=== PATIENT | male | born 1950 | race Caucasian/White ===

== ENCOUNTER → 2016-04-12 | Outpatient (CLI) | payer OTHER ==
[2013-10-29 10:15] VITALS: BP 144/89
[~2016-04-12] MED LIST: AMLO5TAB4 PO; ASPI325T4 PO; CYAN1TAB28 PO; FERR325T58 PO; GABA600T2 PO; IRON18TA PO; LOSA100T6 PO; METF10002 PO; METO-269 PO; MULT1TAB13 PO; OMEG-57 PO; REGADENOSON 0.4 MG/5 ML DISP.SYRIN. IV ONE; SIMV80TA3 PO
--- NOTE | 2016-04-12 08:30 | RAD ---
EXAM: Chest 2 views. HISTORY: Shortness of breath, dizziness, hypertension. COMPARISON: 04/23/2013. FINDINGS: Frontal and lateral views of the chest are obtained. There are changes of coronary artery bypass grafting. Mild linear opacities in the left base are stable and indicate scarring. There are no confluent infiltrates. There is a calcified granuloma in the right base. There is no pneumothorax or pleural effusion. The heart is not enlarged. IMPRESSION: 1. No confluent infiltrates.
--- NOTE | 2016-04-12 11:38 | CARD ---
APPROVED REPORT EXAM: Two-dimensional and M-mode echocardiogram with Doppler and color Doppler. Other Information Quality : Average Rhythm : NSR INDICATION Chest Pain Murmur 2D DIMENSIONS RVDd3.0 (2.9-3.5cm)Left Atrium(2D)4.2 (1.6-4.0cm) IVSd1.1 (0.7-1.1cm)Aortic Root(2D)3.4 (2.0-3.7cm) LVDd5.0 (3.9-5.9cm)LVOT Diameter2.1 (1.8-2.4cm) PWd1.1 (0.7-1.1cm)LVDs3.6 (2.5-4.0cm) FS (%) 29.3 %SV67.6 ml LVEF(%)56.0 (>50%) Aortic Valve AoV Peak Beni.145.0cm/sAoV VTI29.8cm AO Peak GR.8.4mmHgLVOT Peak Beni.88.6cm/s LVOT VTI 19.35cmAO Mean GR.5mmHg NUZHAT (VMAX)2.41xd3BIO (VTI)2.16cm2 Mitral Valve MV E Qgodayww247.8cm/sMV DECEL OLAA265dq MV A Fowrampl45.5cm/sMV E Mean Gr.2mmHg MV FCR58jxF/A Ratio1.2 MV A Phtgardr438okHPL (PHT)4.47cm2 TDI E/Lateral E'11.0E/Medial E'12.8 Pulmonary Valve PV Peak Giyzukka918.3cm/sPV Peak Grad.4mmHg RVOT VTI20.1cm Tricuspid Valve TR P. Thwvawnd904qz/sRAP DWFQGRLU3hiCb TR Peak Gr.24waCbUWGQ02kaEi Pulmonary Vein S1 Qnayeoau61.9cm/sD2 Ecabuszu43.0cm/s LEFT VENTRICLE The left ventricle is normal size. There is normal left ventricular wall thickness. Left ventricle sy stolic function is normal. The Ejection Fraction is 55-60%. There is normal LV segmental wall motion. The left ventricular diastolic function and filling is normal for age. RIGHT VENTRICLE The right ventricle is normal size. The right ventricular systolic function is normal. ATRIA The left atrium is borderline dilated. The right atrium size is normal. The interatrial septum is int act with no evidence for an atrial septal defect or patent foramen ovale as noted on 2-D or Doppler i maging. AORTIC VALVE The aortic valve is mildly sclerotic. The aortic valve is trileaflet. Doppler and Color Flow revealed no significant aortic regurgitation. There is no significant aortic valvular stenosis. MITRAL VALVE The mitral valve is normal in structure and function. There is no mitral valve stenosis. Doppler and Color Flow revealed trace mitral regurgitation. TRICUSPID VALVE The tricuspid valve is normal in structure and function. Doppler and Color Flow revealed mild tricusp id regurgitation. The PA pressure was estimated at 26 mmHg. There is no tricuspid valve stenosis. PULMONIC VALVE The pulmonary valve is normal in structure and function. Doppler and Color Flow revealed no pulmonic valvular regurgitation. There is no pulmonic valvular stenosis. GREAT VESSELS The aortic root is normal in size. Normal pulmonary venous flow (Doppler). The IVC is normal in size and collapses >50% with inspiration. PERICARDIAL EFFUSION There is no evidence of significant pericardial effusion. Critical Notification Critical Value: No <Conclusion> The left ventricle is normal size. Left ventricle systolic function is normal. The Ejection Fraction is 55-60%. There is no significant aortic valvular stenosis. Doppler and Color Flow revealed no significant aortic regurgitation. Doppler and Color Flow revealed trace mitral regurgitation. Doppler and Color Flow revealed mild tricuspid regurgitation. The PA pressure was estimated at 26 mmHg.
--- NOTE | 2016-04-12 14:53 | RAD ---
APPROVED REPORT Test Type: Pharmacological Stress Nurse/Tech: Hilda Yo R.N. Test Indications: CAD, dizzy spells Cardiac History: Family history, Hypertension, Diabetes, CAD, 7 vessel bypass in 2008 Medications: See Electronic Medical Record Medical History: See Electronic Medical Record Resting ECG: RBBB Resting Heart Rate: 71 bpm Resting Blood Pressure: 153/78mmHg Pretest Chest Pain: No chest pain Nurse/Tech Notes S1S2, lungs sound clear Consent: The procedure was explained to the patient in lay terms. Informed consent was witnessed. Marcos eout was entered into [employer]. History and Stress Test performed by Hilda Yo R.N. Pharm. Details Pharmacologic stress testing was performed using 0.4mg per 5ml of regadenoson given intravenously ove r 7-10 seconds. Stress Symptoms Dyspnea POST EXERCISE Reason for Termination: Infusion complete Max HR: 145 bpm Max Blood Pressure: 153/76mmHg Blood Pressure response to exercise: Normal blood pressure response during stress. Chest Pain: No. Arrhythmia: Yes. had some PVC's in 5th minute of recovery ST Change: No. INTERPRETATION Stress EKG Conclusion: The resting EKG shows a sinus rhythm, right bundle branch block and right vent ricular hypertrophy. The stress EKG shows no significant changes from baseline. No EKG evidence of stress-induced ischemia. Imaging Protocol IMAGE PROTOCOL: Rest Tc-99m/stress Tc-99m 1 day Rest: Stress: Viability: Radiopharm.Tc99m QwoboitkxUc49a Sestamibi Dose9.5mCi 34mCi Duration 20min. 15min. Img Date 04/12/2016 04/12/2016 Inj-Img Syja12xxd. 60min. Rest Admin Site:IV - Right AntecubitalAdministrator:Alf Sims RT (R)(N) Stress Admin Site: IV - Right AntecubitalAdministrator: La Pritchett RT (R)(N) STRESS DATA End Diast. Vol.137.0mlAv. Heart Rate81.0bpm LVEDV index BSA2.0mlCardiac Output0.1L/min End Syst. Vol.53.0mlCO Index BSA6.8L/min LVESV index BSA1.0mlMyocardial Qdtm642.0g Eject. Illzavqe21.0% Stress Rates Pk. Fill Rate3.39EDV/secLVtime Pk. Fill 208.30msec Pk. Empty Rate3.55ESV/secLVtime Pk. Wkanq106.28msec 1/3 Pk. Fill0.98EDV/sec Stress Scores Regional WT0.00Summed WT10.00 Regional WM0.00Summed WM4.00 LV Perfusion The stress scans show a small inferior defect. The rest scans show a small inferior defect. Nuclear imaging shows no reversible ischemia Nuclear imaging suggested previous inferior infarct. Wall Motion Normal left ventricular systolic function with an ejection fraction of 61%. LV Perf. Quant 17 Seg. SSS11.00 17 Seg. SRS0.00 17 Seg. SDS11.00 Stress Defect Extent (% LAD)8.80Rest Defect Extent (% LAD)0.00Rev. Defect Extent (% LAD)8.80 Stress Defect Extent (% LCX) 53.80Rest Defect Extent (% LCX)0.00Rev. Defect Extent (% LCX)33.80 Stress Defect Extent (% RCA)18.90Rest Defect Extent (% RCA)0.00Rev. Defect Extent (% RCA)10.00 Stress Defect Extent (% DIANNE)21.10Rest Defect Extent (% DIANNE)0.00Rev. Defect Extent (% DIANNE)14.30 Conclusion 1. Abnormal baseline EKG but no EKG evidence of stress-induced ischemia. 2. Nuclear imaging shows no reversible ischemia. 3. Nuclear imaging shows an inferior infarct. 4. Left ventricular systolic function is intact with an ejection fraction of 61%. 5. Moderately low risk Lexiscan nuclear stress test with no reversible ischemia and an ejection fract ion of 61%.
== END | disposition home or self-care (01) ==
LOC: NM 07:58
PROVIDERS: ATTEND Internal Medicine Cardiovascular Disease
DX: R07.9 Chest pain, unspecified (principal); R01.1 Cardiac murmur, unspecified; R06.02 Shortness of breath; Z82.49 Family history of ischemic heart disease and other diseases of the circulatory system; I10 Essential (primary) hypertension; E11.9 Type 2 diabetes mellitus without complications
CPT/HCPCS: 71020; 78452; 93017; 93306; 96374; 96375; 96376; A9500; J2785

== ENCOUNTER → 2016-11-08 | Outpatient (CLI) | payer OTHER ==
[2013-10-29 10:15] VITALS: BP 144/89
[~2016-11-08] MED LIST changes: -ASPI325T4 PO; +ASPI325T8 PO; +METF-620 PO; -METF10002 PO; -REGADENOSON 0.4 MG/5 ML DISP.SYRIN. IV ONE
--- NOTE | 2016-11-15 17:43 | EEG ---
DATE OF SERVICE: 11/08/2016 ELECTROENCEPHALOGRAM NUMBER: [id number]. OBJECTIVE: This is a 66-year-old male patient with history of abnormal movements. EEG was requested to help rule out seizure. METHODS: Twenty electrodes were applied according to the international 10-20 electrode placement system. EKG monitoring, hyperventilation, intermittent photic stimulation, monopolar and bipolar montages are routinely utilized. The record was obtained on a digital system with video monitoring. FINDINGS: 1. The patient was recorded in the awake and drowsy states. No sleep state was recorded. The overall background amplitude is 10-25 microvolts. A posterior dominant rhythm of 8-10 Hz is observed. 2. Abnormalities: No specific epileptiform discharge or electrographic seizure is seen. No focal or diffuse slowing. 3. Activation: Hyperventilation was performed with good efforts and normal response. Intermittent photic stimulation was performed with photic driving. No specific epileptiform discharge or electrographic seizure induced by hyperventilation or intermittent photic stimulation. IMPRESSION: This electroencephalogram is a normal study for the awake and drowsy states. No sleep state was recorded. No focal, lateralizing, specific epileptiform discharge, or electrographic seizure is seen. However, a normal electroencephalogram does not rule out seizure. ROSE MARIE LIGHT MD DR: FAREED/kishor JOB#: [id number] / [id number] YENI
== END | disposition home or self-care (01) ==
LOC: RT 09:33
PROVIDERS: ATTEND Psychiatry & Neurology Neurology
DX: R06.4 Hyperventilation (principal)
CPT/HCPCS: 95816

== ENCOUNTER → 2017-11-03 | Outpatient (CLI) | payer OTHER ==
[2013-10-29 10:15] VITALS: BP 144/89
[~2017-11-03] MED LIST changes: +ALBUTEROL SULFATE 2.5 MG/3 ML NEBU. NEB ONE; -LOSA100T6 PO; +LOSA100T7 PO; -METF-620 PO; +METF10007 PO; -SIMV80TA3 PO; +SIMV80TA7 PO
--- NOTE | 2017-11-08 12:51 | RESP ---
DATE OF SERVICE: 11/03/2017 REFERRING PHYSICIAN: Dr. Elvin Waldrop. Beverley Sarahterese DO The patient's FVC was 3.28, which is 91% predicted, FEV1 of 2.61, which is 98% predicted. The FEV1/FVC ratio was normal. FEF 25-75, was 121% predicted. There was no response to bronchodilators. Lung volumes showed a total lung capacity of 106% predicted, residual volume increased at 129% predicted. Diffusion capacity is normal at 80% predicted. IMPRESSION: 1. No evidence of any obstructive airway disease. 2. No response to bronchodilators. 3. Lung volumes consistent with air trapping. 4. Normal diffusion capacity. CLARE CLARKE MD DR: JOSEPH/nts JOB#: [id number] / [id number]
== END | disposition home or self-care (01) ==
LOC: PF 08:18
PROVIDERS: ATTEND Internal Medicine
DX: J61 Pneumoconiosis due to asbestos and other mineral fibers (principal)
CPT/HCPCS: 94060; 94640; 94729; J7613

== ENCOUNTER → 2017-11-21 | Outpatient (CLI) | payer OTHER ==
[2013-10-29 10:15] VITALS: BP 144/89
[~2017-11-21] MED LIST changes: -ALBUTEROL SULFATE 2.5 MG/3 ML NEBU. NEB ONE
--- NOTE | 2017-11-21 12:39 | KCIC ---
EXAM: Lumbar spine, 5 views; cervical spine, 5 views. HISTORY: Pain. COMPARISON: None. FINDINGS: Lumbar spine: 5 views of the lumbar spine are obtained. There is no significant listhesis. The vertebral bodies are normal in height and the disc spaces are preserved. There is endplate remodeling and facet arthropathy at all levels. There are multiple endplate Schmorl's nodes. Cervical spine: 5 views of cervical spine are obtained. There is minimal anterolisthesis of C4 on C5. There is degenerative endplate remodeling with disc space narrowing and osteophytosis primarily at C5-C6, and to lesser extent, C6-C7. There is facet arthropathy at all levels. IMPRESSION: 1. Multilevel degenerative change throughout the lumbar spine. 2. Multilevel degenerative change within the cervical spine, primarily at C5-C6. 3. No acute osseous finding. Electronically signed by: La Shell MD (11/21/2017 12:36 PM) [facility]
== END | disposition home or self-care (01) ==
LOC: KCIC 09:47
PROVIDERS: ATTEND Nurse Practitioner
DX: M47.892 Other spondylosis, cervical region (principal); M47.896 Other spondylosis, lumbar region
CPT/HCPCS: 72050; 72110

== ENCOUNTER → 2017-12-04 | Outpatient (CLI) | payer OTHER ==
[2013-10-29 10:15] VITALS: BP 144/89
--- NOTE | 2017-12-04 15:40 | KCIC ---
MRI Cervical Spine Without Contrast History: Cervical radiculopathy, neck pain for 6 months Technique: Multiplanar, multi sequential noncontrast MR imaging was performed of the cervical spine. Comparison: None Findings: There is some motion degradation. Cervical cord caliber is within normal limits without convincing focal signal abnormality allowing for artifact. There is no significant abnormality of the cervical medullary junction. Cervical vertebral body stature is maintained. There is minimal grade 1 anterior spondylolisthesis at C3-4 and C4-5. There is moderate to severe degenerative disc disease at C5-C6 and to lesser degree at C6-7, mild disc desiccation C4-5 and C3-4. There is mild levoscoliosis centered upon the cervicothoracic junction. There is some nonspecific fluid extending about the right lateral mass C1-C2 articulation inferiorly. C2-C3: Neural foramina and spinal canal are adequate. C3-C4: There is severe right facet hypertrophic change, to lesser degree on the left. Spinal canal and neural foramina are adequate. C4-C5: There is severe facet degenerative change greater on the left. Spinal canal and right neural foramen are adequate. There is likely mild narrowing of the left neural foramen from posteriorly by facet. C5-C6: There is disc osteophyte complex and bulge, mild indentation upon the ventral thecal sac greater in the right lateral recess. Central canal is adequate about 11 to 12 mm, minimal narrowing of the right lateral recess. There is bilateral facet degenerative change, also uncovertebral degenerative change change greater on the left. There is fairly severe narrowing of the left neural foramen, mild narrowing on the right. C6-C7: There is very minimal disc osteophyte complex and protrusion. Central canal is adequate about 11-12 mm. Right neural foramen is adequate. There is facet degenerative change, also mild left uncovertebral degenerative change. There is brum-jm-fugkcszp narrowing of the left neural foramen. C7-T1: Spinal canal and neural foramina are adequate. Impression: 1. There is no significant cervical spinal stenosis. There is fairly severe narrowing of the left C5-C6 neural foramen, lesser degree of narrowing on the left at C6-7, and minimally at C4-5. Facet and uncovertebral degenerative change contributes to neural foramina compromise. There is grade 1 anterior spondylolisthesis C3-4 and C4-5. There is degenerative disc disease greatest at C5-C6 and to lesser degree at C6-7, mild spondylosis. There is some nonspecific fluid extending about the right lateral mass C1-C2 articulation inferiorly, may be reactive in etiology. Electronically signed by: Layton Holland MD (12/04/2017 3:38 PM) [facility]
== END | disposition home or self-care (01) ==
LOC: KCIC MRI 13:26
PROVIDERS: ATTEND Family Medicine
DX: M48.02 Spinal stenosis, cervical region (principal); M43.12 Spondylolisthesis, cervical region; M50.122 Cervical disc disorder at C5-C6 level with radiculopathy; M47.892 Other spondylosis, cervical region; M25.78 Osteophyte, vertebrae
CPT/HCPCS: 72141

== ENCOUNTER → 2017-12-13 | Outpatient (CLI) | payer OTHER ==
[2013-10-29 10:15] VITALS: BP 144/89
--- NOTE | 2017-12-13 16:39 | KCIC ---
MRI of the lumbar spine without contrast 12/13/2017 CLINICAL HISTORY: Chronic low back pain which radiates down the left leg. TECHNIQUE: Unenhanced T1-weighted and T2-weighted sagittal and axial and inversion recovery sagittal images of the lumbar spine were obtained. FINDINGS: Minimal S-shaped curvature of the thoracolumbar spine is seen. Degenerative signal changes are seen involving all of the disks of the lumbar spine. Degenerative signal changes are seen within the marrow surrounding these discs. The conus medullaris is within normal limits in morphology, position, and signal characteristics. FINDINGS: Comparison is made to radiographs of the lumbar spine dated 11/21/2017. Degenerative signal changes and loss of height are seen involving all of the disks of the lumbar spine. Degenerative signal changes are seen within the marrow surrounding these discs. The conus medullaris is normal morphology, position, and signal characteristics. At the L1-2 disc space there is a mild generalized disc bulge. Degenerative changes are seen involving the facet joints bilaterally. There is mild ligamentum flavum hypertrophy bilaterally. These findings do not result in significant central spinal canal or neural foraminal stenosis. At the L2-3 disc space there is a mild to moderate generalized disc bulge. This is eccentric to the right. Superimposed on the disc bulge is a left lateral focal disc protrusion. This measures 4 mm in AP diameter. Degenerative changes are seen involving the facet joints bilaterally. There is mild to moderate ligamentum flavum hypertrophy bilaterally. These findings when combined result in mild central spinal canal stenosis. Mild bilateral neural foraminal stenosis is seen. At the L3-4 disc space there is a mild to moderate generalized disc bulge. Superimposed on this disc bulge is a right paracentral focal disc protrusion. This measures 3 mm in AP diameter. Degenerative changes are seen involving the facet joints bilaterally. There is mild ligamentum flavum hypertrophy bilaterally. These findings when combined result in mild right greater than left central spinal canal stenosis. No neural foraminal stenosis is seen. At the L4-5 disc space there is a mild to moderate generalized disc bulge. Degenerative changes are seen involving the facet joints bilaterally. There is moderate ligamentum flavum hypertrophy bilaterally. These findings when combined result in mild central spinal canal stenosis. No neural foraminal stenosis is seen. At the L5-S1 disc space there is a mild generalized disc bulge. Degenerative changes are seen involving the facet joints bilaterally. These findings when combined do not result in significant central spinal canal or neural foraminal stenosis. IMPRESSION: The changes of degenerative disc disease are seen throughout the lumbar spine. These findings result in mild central spinal canal stenosis at L2-3 and L4-5 and mild right greater than left central spinal canal stenosis at L3-4. Mild bilateral neural foraminal stenosis is seen at L2-3. Electronically signed by: Fredi Thomas MD (12/13/2017 4:36 PM) [facility]
== END | disposition home or self-care (01) ==
LOC: KCIC MRI 12:26
PROVIDERS: ATTEND Family Medicine
DX: M51.36 Other intervertebral disc degeneration, lumbar region (principal); M48.061 Spinal stenosis, lumbar region without neurogenic claudication; M79.605 Pain in left leg
CPT/HCPCS: 72148

== ENCOUNTER → 2018-01-19 | Outpatient (CLI) | payer OTHER ==
[2013-10-29 10:15] VITALS: BP 144/89
[~2018-01-19] MED LIST changes: +ASPI-630 PO; +CHOL2000 PO; +FLUO40CA2 PO; +LOSA100T14 PO; -LOSA100T7 PO; +PANT20TA2 PO; +PRAM0.255 PO; +ROPI1TAB PO; +SIMV80TA17 PO; -SIMV80TA7 PO; +TRAZ-85 PO; +VITA1CAP PO
--- NOTE | 2018-01-19 19:47 | PAIN ---
DATE OF SERVICE: 01/19/2018 CHIEF COMPLAINT: Low back and left lower extremity pain. SECONDARY COMPLAINT: Neck and bilateral upper extremity pain. HISTORY OF PRESENT ILLNESS: This is a 67-year-old male who presents with history of pain in the low back and left lower extremity from worse about 6 months but going on for about 2 years. The patient reports no specific injury or action he is aware of. The pain just became more noticeable on its own, up again in the base of neck and shoulders as well as in the low back and then left lower extremity, mostly in posterior gluteus, posterior lateral thigh, lateral anterior thigh, anterior medial thigh, medial lower leg as well as the posterior calf. The patient reports it is constant, sharp, stabbing, throbbing, shooting, sometimes cramping and aching, worse during the day, worse with activity, standing, walking, wakes him from sleep at least twice a night, does not affect his bowel or bladder control, but does affect his ability to walk. He reports he has fallen about 7 times in the last 6 months. He is using a cane with him, which he is carrying in his right hand. The patient has had physical therapy, chiropractic treatment exercise, all in September and October of this year, which were helpful initially, but did not have any lasting results more than about a week by his report. The patient had MRI scan of the lumbar and cervical spine with lumbar spine showing degenerative disk disease throughout the lumbar spine, mild central spinal canal stenosis at L2-L3 and L4-L5 and mild right greater than left central spinal canal stenosis at L3-L4, mild bilateral neural foraminal stenosis seen at L2-L3 cervical spine showing severe narrowing, left C5-C6 neural foramen lesser degree of narrowing at the left C6-C7, minimally at C4-C5 with neural foraminal compromise C6-C7 and C4-C5, degenerative disk disease greatest at C5-C6 and a lesser degree at C6-C7 with mild spondylosis. The patient rates his disability rate from 0-10, 10 being the worst, is an 8 with family and home responsibilities, recreation, occupation and life support activities, 2 with social activity and 10 with sexual behavior. PAST MEDICAL HISTORY: Significant for hearing loss, diabetes type 2, shortness of breath, hypertension, sleep apnea, coronary artery disease, hyperlipidemia, basal cell skin cancers, arthritis. PREVIOUS SURGERY: Include coronary artery bypass graft in 2008, carpal tunnel repair bilaterally, trigger finger release bilaterally, ganglion cystectomy as well. CURRENT MEDICATIONS: Include amlodipine, atorvastatin, aspirin, fluoxetine, pramipexole, vitamin D, fish oil, Centrum, iron, vitamin B, ropinirole, pantoprazole, metoprolol, metformin and losartan and gabapentin. The patient also is taking trazodone. ALLERGIES: THE PATIENT IS ALLERGIC TO AMOXICILLIN. FAMILY HISTORY: Significant for heart disease. SOCIAL HISTORY: The patient does not drink alcohol, does not use any tobacco products, not use any illegal, illicit or recreational drugs. He is and lives with his spouse and lives locally in [place], [place]. REVIEW OF SYSTEMS: Positive for those items mentioned in history of present illness. All systems reviewed and otherwise negative. It is complete, full and well documented on the patient's chart. PHYSICAL EXAMINATION: VITAL SIGNS: Today, the patient's blood pressure is 145/76, pulse 66, respirations 16, temperature 98.0 degrees Fahrenheit, height is 5 feet 5 inches, weight is 194 pounds. GENERAL: The patient is awake, alert, oriented, appropriate, very pleasant demeanor. HEENT: Head shows normocephalic and atraumatic. Extraocular movements are intact and symmetrical. Oral cavity shows mucous membranes moist and pink. Dentition is intact. NECK: Shows anterior throat supple without palpable lymphadenopathy noted. Swallow reflex is symmetrical. CHEST: Shows normal with inspection. Breath sounds clear to auscultation bilaterally. HEART: Shows S1, S2 clear. No murmurs auscultated. ABDOMEN: Soft, nontender, nondistended. No palpable organomegaly is noted. No rebound or guarding demonstrated. BACK: Shows spine grossly in the midline, normal-appearing cervical lordotic curvature, thoracic kyphotic curvature and lumbar lordotic curvature. Lumbar paraspinous musculature shows symmetrical on inspection, with palpation shows some moderate tenderness diffusely bilaterally, but only diffusely without significant radiation. Good rotational motion is maintained greater than 10 degrees right and left as well as extension greater than 10 degrees, forward flexion 45 degrees without significant pain reported. The patient shows no tenderness over the spinous processes, sacrum or sacroiliac regions. The patient's neck shows some moderate tenderness in the inferior aspect of the cervical paraspinous musculature as well as the superior medial trapezius bilaterally, essentially equal but good rotational motion both laterally greater than 45 degrees, closer to 90 degrees, right and left lateral rotation as well as full flexion and full extension with exacerbation of pain. EXTREMITIES: Show lower extremity deep tendon reflexes at 1+ in the patellar and tendo calcaneus tendons are equal. Motor exam is approximately 4 on a scale of 5, but symmetrical with dorsiflexion, extension, quadriceps and hamstring flexion. Peripheral pulses are 1+ posterior tibia. No peripheral edema is noted. Upper extremities show deep tendon reflexes 2+ in the biceps and triceps tendons. Motor exam is strong with assisted living administrator strength rated at 5/5 as is bicep and tricep flexion. Peripheral pulses are 2+ in the radial distribution. No peripheral edema is noted of the upper extremities. The patient's extremities are warm and dry to touch, equal in color and appearance, both upper and lower. SKIN: Shows warm and dry, good turgor. No edema. No sores, rashes or bruising. The patient is able to stand, stand on his toes and loses balance very quickly. He is walking with a slight antalgic gait, does appear to favor the left lower extremity. He had limping fashion with walking and again using a cane in his right hand to ambulate. IMPRESSION: 1. This is a 67-year-old male with approximate 6-month history of increasing pain, but over about 2 years pain in the low back, left lower extremity in a radicular fashion in the L4-L5 dermatomal distribution. 2. Bilateral cervical radiculopathy in a C5-C6 and C6-C7 distribution. 3. Hypertension. 4. Type 2 diabetes. 5. Arthritis. 6. Coronary artery disease. PLAN: Options were discussed with the patient including conservative medical managements, continued physical therapies, interventional techniques. As he has done physical therapy and still doing exercises on his own, he would like to pursue interventional techniques. We discussed a lumbar epidural steroid injection using description as well as anatomical models to describe the procedure. The patient will wait for preauthorization with his insurance provider. Once this is obtained, we will have him return and plan on lumbar epidural steroid injection at that time for the radiculopathy in left lower extremity L4-L5 dermatomal distribution. LEYDA OATES MD DR: KAE/kishor JOB#: [id number] / [id number]
== END | disposition home or self-care (01) ==
LOC: PNCL 10:16
PROVIDERS: ATTEND Anesthesiology
DX: M79.662 Pain in left lower leg (principal); M51.36 Other intervertebral disc degeneration, lumbar region; M48.061 Spinal stenosis, lumbar region without neurogenic claudication; M50.323 Other cervical disc degeneration at C6-C7 level; M47.892 Other spondylosis, cervical region; E11.9 Type 2 diabetes mellitus without complications; I10 Essential (primary) hypertension; I25.10 Atherosclerotic heart disease of native coronary artery without angina pectoris; E78.49 Other hyperlipidemia; M19.90 Unspecified osteoarthritis, unspecified site; G47.39 Other sleep apnea; Z85.820 Personal history of malignant melanoma of skin; Z88.1 Allergy status to other antibiotic agents
CPT/HCPCS: G0463

== ENCOUNTER → 2018-02-05 | Outpatient (CLI) | payer OTHER ==
[2013-10-29 10:15] VITALS: BP 144/89
[~2018-02-05] MED LIST changes: +IOHEXOL 180 MG/ML 10 ML VIAL. ONE; +methylPREDNISolone ACETATE 40 MG/ML VIAL. ONE; +methylPREDNISolone ACETATE 80 MG/ML VIAL. ONE
--- NOTE | 2018-02-06 04:41 | PAIN ---
DATE OF SERVICE: 02/05/2018 PROGRESS NOTE FOR PAIN CLINIC: DIAGNOSES: 1. Lumbar radiculopathy with lumbar degenerative disk disease. 2. Cervical radiculopathy with cervical degenerative disk disease. HISTORY OF PRESENT ILLNESS: The patient is a 67-year-old male who returns for followup status post initial evaluation and preauthorization for lumbar epidural steroid injection. The patient has obtained this now and would like to proceed, still pain in low back radiating to bilateral lower extremities, left and right hips, posterior lateral thigh, lateral anterior thigh, medial thigh and across the low back, worse with walking, standing, change in positions. The patient reports it awakens him from sleep at night about every 3-4 hours. Reports no new motor or sensory deficits, no new bowel or bladder incontinence or other complaints, but still pain in the low back as noted in the legs, aching, sharp, tight, shooting, constant, rated an 8 on a scale of 10 at its worst, 8 on average, 6 at its least and is a 6 today. The patient reports no new motor or sensory deficits, no new bowel or bladder incontinence or other complaints. PHYSICAL EXAMINATION: VITAL SIGNS: The patient's blood pressure 134/81, pulse 73, respirations are 18, temperature is 97.4 degrees Fahrenheit. Height is 5 feet 5 inches, weight is 195 pounds. GENERAL: The patient is awake, alert, oriented, appropriate, very pleasant demeanor. HEENT: Head is normocephalic, atraumatic. Extraocular muscles are intact and symmetrical. Oral cavity: Mucous membranes moist and pink. Dentition is intact. NECK: Shows anterior throat supple without palpable lymphadenopathy noted. Swallow reflex symmetrical. CHEST: Shows normal on inspection. Breath sounds clear to auscultation bilaterally. HEART: Shows S1, S2 clear. No murmurs auscultated. ABDOMEN: Soft, nontender, nondistended. No palpable organomegaly is noted. No rebound or guarding demonstrated. BACK: Shows spine grossly in the midline. Slight exaggeration of thoracic kyphosis, some minor flattening of lumbar lordotic curvature. Lumbar paraspinous muscle shows symmetrical on inspection, with palpation shows some moderate tenderness diffusely throughout the upper, middle and lower distribution of paraspinous muscles, but only diffusely without radiation. EXTREMITIES: The patient's lower extremities show deep tendon reflexes at the 2+/4 in the patellar and 1+ in the tendo calcaneus tendons. Motor exam is strong with 4/5 and equal with dorsiflexion, extension, quadriceps and hamstring flexion and symmetrical. Peripheral pulses are 1+ posterior tibia. No peripheral edema is noted bilaterally. Options were discussed with the patient. The patient's old chart was reviewed as his current medication regimen updated. Current review of systems updated today as well. We will proceed with a lumbar epidural steroid injection today with fluoroscopic guidance. Risks were again discussed including, but not limited to bleeding, infection, possibility of epidural hematoma and subsequent neurological compromise, dural puncture, headaches, spinal cord and/or nerve damage, side effects of steroid medication and poor results regarding pain control. The patient understands and wished to proceed. The patient to return to clinic in approximately 2 weeks for followup, was counseled on return appointment, activity level and side effects to be aware of. DIAGNOSIS: Lumbar radiculopathy with lumbar degenerative disk disease. PROCEDURE: Lumbar epidural steroid injection, translaminar approach at the L4-L5 level using C-arm fluoroscopic guidance under sterile prep and drape using local anesthetic. MEDICATION INJECTED: A total of 120 mg Depo-Medrol plus 10 mL of preservative-free normal saline and 2 mL of Isovue for contrast. CONDITION AT DISCHARGE: Stable. The patient tolerated the procedure well, had no complications. LEYDA OATES MD DR: KAE/kishor JOB#: [id number] / [id number]
== END | disposition home or self-care (01) ==
LOC: PNCL 08:22
PROVIDERS: ATTEND Anesthesiology
DX: M51.16 Intervertebral disc disorders with radiculopathy, lumbar region (principal); M50.30 Other cervical disc degeneration, unspecified cervical region; Z88.1 Allergy status to other antibiotic agents
CPT/HCPCS: 62323; J1030; J1040; Q9965

== ENCOUNTER → 2018-02-19 | Outpatient (CLI) | payer OTHER ==
[2013-10-29 10:15] VITALS: BP 144/89
[~2018-02-19] MED LIST changes: -GABA600T2 PO; +GABA600T7 PO; -IOHEXOL 180 MG/ML 10 ML VIAL. ONE; +TRAZ-118 PO; -TRAZ-85 PO; -methylPREDNISolone ACETATE 40 MG/ML VIAL. ONE; -methylPREDNISolone ACETATE 80 MG/ML VIAL. ONE
--- NOTE | 2018-02-19 10:42 | PAIN ---
DATE OF SERVICE: 02/19/2018 DIAGNOSIS: Lumbar radiculopathy with lumbar degenerative disk disease. HISTORY OF PRESENT ILLNESS: The patient is a 68-year-old male who returns for followup status post cervical epidural steroid injection x 1. The patient reports about 50-60% improvement for the first 2-3 weeks after the injection, but the pain is returning now in the low back and into the bilateral lower extremities. The patient reports right essentially equal to left, radiating to posterior gluteus, posterior lateral thigh, lateral anterior thigh, medial thigh, medial lower legs; again worse with walking, standing, changing positions; better with sitting or lying down, but awakens him from sleep about every 3-4 hours. The patient also has some pain in his neck and bilateral shoulders, but this is secondary. The patient reports pain is at 9 on a scale of 10 at its worst, 9 on an average, 7 at its least and is 9 today. It is stabbing, aching, sharp, shooting, becoming more constant; again better for about 2 weeks after the injection, but now returning. The patient reports no new motor or sensory deficits, no new bowel or bladder incontinence or other complaints. The patient reports he was increasing his activity with greater ease and comfort, walking greater distances, even doing household activities, although with some recent snow he was doing some shoveling which seems to have exacerbated the pain as well over the past few days. PHYSICAL EXAMINATION: VITAL SIGNS: Today, the patient's blood pressure is 120/67, pulse 63, respirations 18, temperature 98.4 degrees Fahrenheit, height is 5 feet 5 inches, weight is 191 pounds. GENERAL: The patient is awake, alert, oriented, appropriate, very pleasant demeanor. HEENT: Head normocephalic, atraumatic. Extraocular movements intact and symmetrical. Oral cavity: Mucous membranes are moist and pink. Dentition is intact. NECK: Shows anterior throat supple without palpable lymphadenopathy noted. Swallow reflex is symmetrical. CHEST: Shows normal with inspection. Breath sounds clear to auscultation bilaterally. HEART: Shows S1, S2 clear. ABDOMEN: Soft, nontender, nondistended. No palpable organomegaly is noted. No rebound or guarding demonstrated. BACK: The patient's back shows spine grossly in the midline. Normal appearing thoracic kyphosis and lumbar lordotic curvature. Lumbar paraspinous muscle shows symmetrical on inspection. On palpation, it shows some moderate tenderness diffusely bilaterally, but only diffusely in the low lumbar distribution without radiation. EXTREMITIES: Lower extremities show deep tendon reflexes at 1+ in the patellar ____ calcaneus tendons are equal. Motor exam is approximately 4 on a scale 5, but equal and symmetrical with dorsiflexion, extension, quadriceps and hamstring flexion bilaterally. The patient shows mild straight leg raise bilaterally at about 40 degrees with decrease in knee flexion. The patient is able to stand, walks with a slight shuffling gait, does not appear to favor the right or left lower extremity significantly, not using any assistive devices to ambulate. Options were discussed with the patient. The patient's old chart was reviewed as was his current medication regimen updated. Current review of systems updated today as well. We will preauthorize the patient for a second lumbar epidural steroid injection. The patient did very well for the first 2 weeks after the injection, 50-60% improvement overall with pain returning now in a radicular pattern in L4-L5 dermatomal distribution. We will preauthorize him from the L4-L5 epidural steroid injection. The patient will return to clinic in approximately 2 weeks. We will plan on second lumbar epidural steroid injection at that time. LEYDA OATES MD DR: KAE/kishor JOB#: [id number] / [id number]
== END | disposition home or self-care (01) ==
LOC: PNCL 08:22
PROVIDERS: ATTEND Anesthesiology
DX: M51.16 Intervertebral disc disorders with radiculopathy, lumbar region (principal)
CPT/HCPCS: G0463

== ENCOUNTER → 2018-03-12 | Outpatient (CLI) | payer OTHER ==
[2013-10-29 10:15] VITALS: BP 144/89
[~2018-03-12] MED LIST changes: +IOHEXOL 180 MG/ML 10 ML VIAL. ONE; +methylPREDNISolone ACETATE 40 MG/ML VIAL. ONE; +methylPREDNISolone ACETATE 80 MG/ML VIAL. ONE
--- NOTE | 2018-03-12 11:53 | PAIN ---
DATE OF SERVICE: 03/12/2018 DIAGNOSES: 1. Lumbar radiculopathy with lumbar degenerative disk disease. 2. Cervical radiculopathy with cervical degenerative disk disease. HISTORY OF PRESENT ILLNESS: The patient is a 68-year-old male who returns for followup status post lumbar epidural steroid injection x 1. The patient reports about 60% improvement for the first few weeks, but the pain is returning now in the low back and into the bilateral lower extremities, more on the left than the right. The patient reports also significant pain in the base of the neck and shoulders and arms with some increased pain since last visit in the upper extremities, also left greater than right. The patient did have MRI scan of the cervical spine showing some disk osteophyte complex at C5-C6 as well as C6-C7 with facet degenerative change, [id number] narrowing of the left neural foramen at C6-C7 and greater on the left narrowing C5-C6 with a fairly severe narrowing of the left neural foramen at that level as well. The patient reports his left arm has been giving some difficulty with tingling, numbness into the hand and fingers, especially the thumb on the left side, as well as the low back and the left lower extremity. Again it was doing much better with increased activity with greater ease and comfort, walking better distances, doing household activities as well as traveling with greater ease. He is still sleeping fairly well at night, but it does awaken him from sleep and his neck and his left arms can be more noticeable as well. The patient reports no new motor or sensory deficits, no new bowel or bladder incontinence or other complaints. PHYSICAL EXAMINATION: VITAL SIGNS: The patient's blood pressure is 130/73, pulse 67, respirations 18, temperature 98.4 degrees Fahrenheit, height is 5 feet 5 inches, weight is 191 pounds. GENERAL: The patient is awake, alert, oriented, appropriate, very pleasant demeanor. HEENT: Head shows normocephalic, atraumatic. Extraocular movements intact and symmetrical. Oral cavity: Mucous membranes moist and pink. Dentition intact. NECK: Shows anterior throat supple without palpable lymphadenopathy noted. Swallow reflex symmetrical. CHEST: Shows normal on inspection. Breath sounds clear to auscultation bilaterally. HEART: Shows S1, S2 clear. No murmurs auscultated. ABDOMEN: Soft, nontender, nondistended. No palpable organomegaly is noted. No rebound or guarding demonstrated. BACK: Shows spine grossly in the midline. Normal-appearing thoracic kyphosis and lumbar lordotic curvature. Cervical paraspinous muscle shows symmetrical on inspection. On palpation, it shows some moderate tenderness in the inferior aspect of the left paraspinous musculature and trapezius. Lower back shows moderate tenderness bilaterally in the lumbar paraspinous muscles, but only diffusely in the low lumbar paraspinous muscles without radiation. EXTREMITIES: The patient's lower extremities show deep tendon reflexes at 1+ in the patellar and tendo calcaneus tendons. Motor exam is mostly 4 on a scale of 5 dorsiflexion, extension, but equal and symmetrical. Upper extremities show deep tendon reflexes 2+ in the biceps, triceps tendons. [employer] strength is approximately 4 on a scale of 5 on the left, 5/5 on the right, but intact. Peripheral pulses are 2+ radial. No peripheral edema was noted in the extremities. ASSESSMENT AND PLAN: Options were discussed with the patient. The patient's old chart was reviewed as was his current medication regimen updated. Current review of systems updated today as well and we will proceed with a second in the series of lumbar epidural steroid injection today with fluoroscopic guidance. Risks were again discussed including, but not limited to bleeding, infection, possibility of epidural hematoma, subsequent neurological compromise, dural puncture, headaches, spinal cord and/or nerve damage, side effects of steroid medication and poor results regarding pain control. The patient understands and wished to proceed. The patient to return to clinic in approximately 2 weeks for followup. We discussed potential cervical epidural steroid injection at his next visit. He does have a C5-C6 and C6-C7 dermatomal distribution of radicular pain in the left upper extremity, especially into the left thumb with MRI C-spine as noted. The patient will continue with stretching and strengthening exercises in the meantime. We will have the patient return for possible cervical epidural steroid injection at his next visit at the C6-C7 level on the left. PROCEDURES: Lumbar epidural steroid injection, translaminar approach L3-L4 level using C-arm fluoroscopic guidance under sterile prep and drape using local anesthetic. MEDICATION INJECTED: A total of 120 mg of Depo-Medrol plus 10 mL of preservative-free normal saline and 2 mL of Isovue for contrast. CONDITION AT DISCHARGE: Stable. The patient tolerated the procedure well, had no complications. LEYDA OATES MD DR: KAE/kishor JOB#: [id number] / [id number]
== END | disposition home or self-care (01) ==
LOC: PNCL 08:56
PROVIDERS: ATTEND Anesthesiology
DX: M51.16 Intervertebral disc disorders with radiculopathy, lumbar region (principal); M50.10 Cervical disc disorder with radiculopathy, unspecified cervical region; Z88.1 Allergy status to other antibiotic agents
CPT/HCPCS: 62323; J1030; J1040; Q9965

== ENCOUNTER → 2018-03-26 | Outpatient (CLI) | payer OTHER ==
[2013-10-29 10:15] VITALS: BP 144/89
[~2018-03-26] MED LIST changes: -TRAZ-118 PO; +TRAZ-85 PO
--- NOTE | 2018-03-26 21:27 | PAIN ---
DATE OF SERVICE: 03/26/2018 PROGRESS NOTE FOR PAIN CLINIC DIAGNOSES: 1. Lumbar radiculopathy with lumbar degenerative disk disease. 2. Cervical radiculopathy with cervical degenerative disk disease. HISTORY OF PRESENT ILLNESS: The patient is a 68-year-old male who returns for followup status post lumbar epidural steroid injections x 2 only with about 50% improvement overall and only lasting for a few days with the last injection. The patient reports still significant pain across the low back into the bilateral lower extremities. The patient's chief complaint, however, is base of the neck and shoulder pain, which he has had for some time. We discussed treating this if his neck was not significantly improved. The patient reports still significant pain in the base of the neck, shoulders, upper extremities radiating to the bilateral left and right upper extremities, mostly in the posterior shoulder and posterior triceps, worse with activity, repetitive motions, reaching over his head with either arm and lifting items. The patient reports it is an 8 on a scale of 10 at its worst and average, 7 at its least and is a 7 today. The patient reports it is an aching, sharp, shooting, stabbing, becoming more constant and shooting. It awakens him from sleep about every 4 hours with the neck and shoulders. The patient reports no new motor or sensory deficits, no new bowel or bladder incontinence. The patient was increasing his distance walking and doing activities at home as well as traveling better initially, but only for about a week after the last injection. PHYSICAL EXAMINATION: VITAL SIGNS: Today, the patient's blood pressure is 116/62, pulse 61, respirations 18, temperature 98.0 degrees Fahrenheit. Height is 5 feet 5 inches and weight is 189 pounds. GENERAL: The patient is awake, alert, oriented, appropriate, very pleasant demeanor. HEENT: Head shows normocephalic, atraumatic. Extraocular muscles are intact and symmetrical. Oral cavity, mucous membranes moist and pink. Dentition intact. NECK: Shows anterior throat supple without palpable lymphadenopathy noted. Swallow reflex is symmetrical. Neck shows good rotational motion of the cervical spine both laterally as well as full extension, full forward flexion without significant increase in pain. Posterior cervical musculature shows cervical lordotic curvature maintained. Paraspinous muscle shows symmetrical on inspection, with palpation shows some moderate tenderness diffusely in the inferior aspect of the cervical paraspinous musculature and into the superior medial trapezius, right equal to left without atrophy, hypertrophy and without asymmetry or trigger point. CHEST: Shows normal with inspection. Breath sounds are clear to auscultation bilaterally. HEART: Shows S1, S2 clear. No murmurs auscultated. ABDOMEN: Soft, obese, nontender, nondistended. EXTREMITIES: The patient's upper extremities show deep tendon reflexes at 2+ in the biceps and triceps tendons and are equal. Motor exam is 5/5 manufacturing weaver strength, biceps, tricep flexion. Lower extremities show deep tendon reflexes 1+ in the patellar and tendo calcaneus tendons. Motor exam is approximately 4 on a scale of 5, but symmetrical with dorsiflexion, extension and equal. Peripheral pulses are 2+ radial, 1+ posterior tibial. No peripheral edema is noted in the upper or lower extremities. Options were discussed with the patient. The patient's old chart was reviewed as his current medication regimen updated. Current review of systems updated today as well. We will proceed with a cervical epidural steroid injection today as the third in this series. The patient has had 2 lumbar injections. Risks were again discussed including, but not limited to, bleeding, infection, possibility of epidural hematoma, subsequent neurologic compromise, dural puncture, headaches, spinal cord and/or nerve damage, side effects of steroid medication and poor results regarding pain control. The patient understands and wished to proceed. The patient to return to the clinic in approximately 2 weeks for followup, was counseled as to return appointment, activity level and side effects to be aware of. DIAGNOSIS: Cervical radiculopathy with cervical degenerative disk disease. DESCRIPTION OF PROCEDURE: Cervical epidural steroid injection, translaminar approach at C6-C7 level using C-arm fluoroscopic guidance under sterile prep and drape with local anesthetic. MEDICATION INJECTED: A total of 120 mg of Depo-Medrol plus 5 mL of preservative-free normal saline and 2 mL of Isovue for contrast. CONDITION AT DISCHARGE: Stable. The patient tolerated the procedure well, had no complications. LEYDA OATES MD DR: KAE/kishor JOB#: [id number] / [id number]
== END | disposition home or self-care (01) ==
LOC: PNCL 08:55
PROVIDERS: ATTEND Anesthesiology
DX: M50.123 Cervical disc disorder at C6-C7 level with radiculopathy (principal); M51.16 Intervertebral disc disorders with radiculopathy, lumbar region; Z88.1 Allergy status to other antibiotic agents
CPT/HCPCS: 62321; J1030; J1040; Q9965

== ENCOUNTER → 2018-05-02 | Outpatient (CLI) | payer OTHER ==
[2013-10-29 10:15] VITALS: BP 144/89
[~2018-05-02] MED LIST changes: -IOHEXOL 180 MG/ML 10 ML VIAL. ONE; +TRAZ-118 PO; -TRAZ-85 PO; -methylPREDNISolone ACETATE 40 MG/ML VIAL. ONE; -methylPREDNISolone ACETATE 80 MG/ML VIAL. ONE
--- NOTE | 2018-05-03 03:30 | PAIN ---
DATE OF SERVICE: 05/02/2018 PROGRESS NOTE FOR PAIN CLINIC: DIAGNOSES: 1. Lumbar radiculopathy with lumbar degenerative disk disease. 2. Cervical radiculopathy with cervical degenerative disk disease and cervical spondylosis. HISTORY OF PRESENT ILLNESS: The patient is a 68-year-old male who returns for followup status post lumbar and cervical epidural steroid injection. The patient reports no significant improvement with either of these injections. He still had been doing some physical therapy, doing some stretching and strengthening exercises, recently seen his neurosurgeon who is not recommending any surgery for his back or his neck at that time and the patient is somewhat frustrated, still has significant pain mainly in the low back and bilateral lower extremities, also in the neck significantly more on the right than the left, but present bilaterally. The patient reports worse with extension of the cervical spine, especially right lateral rotation greater than 45 degrees and left lateral rotation greater than 45 degrees. The patient reports it is becoming more noticeable especially on the right side. It is disturbing his sleep to some extent, worse with repetitive motions upper extremities or the right arm as well as in the right neck and not radiating into the right upper extremity at this time, but significant pain in the neck itself, especially with extension and axial loading of the cervical spine and right lateral rotation as well as left lateral rotation. The patient reports it is sharp, shooting, stabbing, becoming more constant and pain in the low back is radiating into the lower extremities bilaterally, mostly in the posterior gluteus, posterior thighs as it was previously. The patient reports the pain is 8 on a scale of 10 at all times, average, worst and least and is an 8 today. The patient reports it does awaken him from sleep at least 4 times a night between the back and the neck. PHYSICAL EXAMINATION: VITAL SIGNS: The patient's blood pressure 128/69, pulse 65, respirations 18, temperature 97.9 degrees Fahrenheit, height is 5 feet 5 inches, weighs 196 pounds. GENERAL: The patient is awake, alert, oriented, appropriate, very pleasant demeanor. HEENT: Head is normocephalic, atraumatic. Extraocular movements are intact and symmetrical. Oral cavity: Mucous membranes moist and pink. Dentition intact. NECK: Shows anterior throat supple without palpable lymphadenopathy noted. Swallow reflex is symmetrical. CHEST: Shows normal with inspection. Breath sounds are clear to auscultation bilaterally. HEART: Shows S1, S2 clear. No murmurs auscultated. ABDOMEN: No rebound or guarding demonstrated in the abdomen. No palpable organomegaly is noted. BACK: Shows spine grossly in the midline. Normal appearing cervical lordotic curvature, thoracic kyphotic curvature, mild flattening of lumbar lordotic curvature. Cervical paraspinous muscle shows symmetrical on inspection with some moderate tenderness throughout the upper, middle, lower distribution of the paraspinous muscles, more on the right than on the left, but present bilaterally, worse with extension of the spine with significant pain in the base of the neck and mid back with extension, better with forward flexion, right and left lateral rotation shows moderate tenderness with left and significant tenderness with right lateral rotation in the neck itself without radiation. EXTREMITIES: The patient's upper extremities show deep tendon reflexes 2+ in the biceps and triceps tendons. Motor exam is strong with table games dual rate supervisor strength rated 5/5 as is bicep and tricep flexion. Low back shows lumbar paraspinous musculature is symmetrical, with palpation shows some moderate tenderness diffusely in the middle lobe distribution bilaterally, but good rotation without significant increase in pain in the lumbar spine, greater than 10 degrees right and left as well as extension greater than 10 degrees, forward flexion 45 degrees without difficulty. EXTREMITIES: Lower extremities show deep tendon reflexes at 2+ patellar and 1+ tendo calcaneus tendons. Motor exam is strong with 5/5 dorsiflexion and extension bilaterally. Peripheral pulses are 2+ radial, 1+ posterior tibial. Options were discussed with the patient. The patient's old chart was reviewed as his current medication regimen updated. Current review of systems updated today as well. We will preauthorize the patient for cervical facet injections at the C4-C5 and C6-C7 levels. The patient has significant axial loading pain with extension of cervical spine as well as right greater than left, but present bilaterally, rotational pain in the neck itself without radiation. The patient will return to clinic once preauthorization is obtained. We also discussed potential for spinal cord stimulator regarding the patient's low back and legs. We will discuss this further in the future as he would like to consider all of his options as surgery is not indicated currently, but with still significant lumbar radicular pain. Again, we will discuss this further in the future. The patient was given some information to look at and educate himself with the stimulation process itself and will follow up for cervical facet joint injections approximately 1 week after prior authorization. LEYDA OATES MD DR: KAE/kishor JOB#: [id number] / [id number]
== END | disposition home or self-care (01) ==
LOC: PNCL 09:01
PROVIDERS: ATTEND Anesthesiology
DX: M51.16 Intervertebral disc disorders with radiculopathy, lumbar region (principal); M50.10 Cervical disc disorder with radiculopathy, unspecified cervical region; M47.892 Other spondylosis, cervical region
CPT/HCPCS: G0463

== ENCOUNTER → 2018-05-16 | Outpatient (CLI) | payer OTHER ==
[2013-10-29 10:15] VITALS: BP 144/89
[~2018-05-16] MED LIST changes: +BUPIVACAINE MPF 0.25% 10 ML VIAL. ONE; +IOHEXOL 180 MG/ML 10 ML VIAL. ONE; +methylPREDNISolone ACETATE 40 MG/ML VIAL. ONE; +methylPREDNISolone ACETATE 80 MG/ML VIAL. ONE
--- NOTE | 2018-05-17 00:23 | PAIN ---
DATE OF SERVICE: 05/16/2018 DIAGNOSES: 1. Cervical radiculopathy with cervical degenerative disk disease and cervical spondylosis. 2. Lumbar radiculopathy with lumbar degenerative disk disease. HISTORY OF PRESENT ILLNESS: The patient is a 68-year-old male who returns for followup status post previous lumbar epidural steroid injections, also significant pain in the base of the neck and shoulders with some cervicalgia. The patient had had significant neck pain with imaging reviewed again from cervical MRI scan as well as lumbar MRI scan. The patient reports still significant pain throughout the neck, mostly in the middle and lower distribution of the neck itself, worse with rotational motion as well as extension, slightly better with forward flexion, but still painful. The patient reports it is 9 on a scale of 10 at its worst, 9 on average, 8 at its least and is 8 today. The patient reports it is sharp, shooting, stabbing, constant and severe. Also, the patient has pain in the low back, bilateral lower extremities in a dermatomal distribution as well as L3-L4 and L4-L5 dermatomes. The patient reports that his main complaint, however, is the neck and this is his chief complaint. It is keeping him from sleeping at night and wakes him up about every 4 hours; has problem with doing repetitive motions, even driving a car, holding his head up; better with lying down, but still awakens him from sleep significantly. The patient also has significant pain in the low back, bilateral lower extremities. The patient had recent evaluation with Dr. Polo Morales, neurosurgeon who is not recommending any surgical intervention at this time and recommends a trial of the spinal cord stimulator for his low back and leg pain. PHYSICAL EXAMINATION: Today: VITAL SIGNS: The patient's blood pressure is 135/77, pulse is 65, respirations are 16, temperature 97.6 degrees Fahrenheit, height is 5 feet 5 inches, weighs 196 pounds. GENERAL: The patient is awake, alert, oriented, appropriate, very pleasant demeanor. HEENT: Head shows normocephalic, atraumatic. Extraocular movements are intact and symmetrical. Oral cavity: Mucous membranes moist and pink. Dentition is intact. NECK: Shows anterior throat supple without palpable lymphadenopathy noted. Swallow reflex symmetrical. CHEST: Shows normal on inspection. Breath sounds clear to auscultation bilaterally. HEART: Shows S1, S2 clear. No murmurs auscultated. ABDOMEN: Soft, nontender, nondistended. No palpable organomegaly is noted. No rebound or guarding demonstrated. BACK: Shows spine grossly in the midline. The patient's neck shows cervical spine with moderate tenderness on palpation with middle and lower distribution of paraspinous muscles specifically. The patient shows good rotation of motion, but moderately tender with palpation, even with moderate extension and right and left lateral rotation at 45 degrees, shows moderate tenderness bilaterally, right essentially equal to left. The patient's upper extremities show deep tendon reflexes 2+ in the biceps and triceps tendons. Motor exam is strong with mult au matic operator strength rated at 5/5 and equal. Peripheral pulses are 2+ radial distribution. The patient's low back shows moderate tenderness throughout the middle and lower distribution of paraspinous muscles of the lower back as well in the lumbar distribution without radiation. The patient has good rotational motion, good extension and flexion of the lumbar spine without significant increase in pain. EXTREMITIES: The patient's lower extremities show deep tendon reflexes 2+ in the patellar and tendo calcaneus tendons are 1+. Motor exam is strong with 5/5 dorsiflexion and extension bilaterally. Peripheral pulses are 1+ posterior tibia. No peripheral edema is noted. Options were discussed with the patient. The patient's old chart was reviewed as was his current medication regimen updated. Current review of systems updated today as well. We will proceed with bilateral cervical facet medial branch blocks at the C4-C5, C5-C6 and C6-C7 levels using C-arm fluoroscopic guidance. Risks were discussed including but not limited to bleeding, infection, possibility of epidural hematoma and subsequent neurological compromise, dural puncture, headaches, spinal cord and/or nerve damage, side effects of steroid medication, exposure to fluoroscopy, spread of local anesthetic and numbness and poor results regarding pain control. The patient understands and wished to proceed. The patient will return to clinic in approximately 2 weeks for followup. Also, we will preauthorize the patient for a spinal cord stimulator trial as he has had significant pain in the low back, bilateral lower extremities in a radicular fashion for some time now and only minimal results with lumbar epidural steroid injections, also recent evaluation from neurosurgeon, Dr. Polo Morales recommending no interventional surgery at this time and recommend spinal cord stimulator trial. We will also have the patient visit clinical psychologist for clearance for implantable devices for the stimulator as well. The patient will follow up in approximately 2 weeks as scheduled. DIAGNOSIS: Cervical spondylosis with cervical degenerative disk disease. PROCEDURE: Bilateral C4-C5, C5-C6, and C6-C7 facet joint medial branch blocks under sterile prep and drape using local anesthetic. MEDICATION INJECTED: A total of 120 mg Depo-Medrol plus total of 8 mL of 0.25% bupivacaine 1 mL at each level and total of 4 mL of contrast, 0.5 mL at each level with negative aspiration. CONDITION AT DISCHARGE: Stable. The patient tolerated the procedure well, had no complications. LEYDA OATES MD DR: KAE/kishor JOB#: [id number] / [id number]
== END | disposition home or self-care (01) ==
LOC: PNCL 10:47
PROVIDERS: ATTEND Anesthesiology
DX: M47.812 Spondylosis without myelopathy or radiculopathy, cervical region (principal); M50.123 Cervical disc disorder at C6-C7 level with radiculopathy; M51.16 Intervertebral disc disorders with radiculopathy, lumbar region; Z88.1 Allergy status to other antibiotic agents
CPT/HCPCS: 64490; 64491; 64492; J1030; J1040; J3490; Q9965

== ENCOUNTER → 2018-06-21 | Outpatient (CLI) | payer OTHER ==
[2013-10-29 10:15] VITALS: BP 144/89
[~2018-06-21] MED LIST changes: -BUPIVACAINE MPF 0.25% 10 ML VIAL. ONE; -IOHEXOL 180 MG/ML 10 ML VIAL. ONE; +LIDOCAINE 1% PF 2 ML VIAL. ONE; -methylPREDNISolone ACETATE 40 MG/ML VIAL. ONE; -methylPREDNISolone ACETATE 80 MG/ML VIAL. ONE
--- NOTE | 2018-06-22 04:20 | PAIN ---
DATE OF SERVICE: 06/21/2018 DIAGNOSES: 1. Lumbar radiculopathy with lumbar degenerative disk disease. 2. Cervical radiculopathy with cervical degenerative disk disease and cervical spondylosis. HISTORY OF PRESENT ILLNESS: The patient is a 68-year-old male who returns for followup status post medial branch blocks in the cervical spine with very good results. The patient reports still significant pain in the low back, bilateral lower extremities, however, and has been preauthorized for a spinal cord stimulator temporary placement and trial. The patient reports still significant pain in the low back and bilateral lower extremities as it was previously, status post lumbar epidural steroid injection since 01/2018 and again 03/12/2018. The patient reports no new motor or sensory deficits, no new bowel or bladder incontinence or other complaints, still significant pain in the low back and left lower extremity greater than the right. The patient reports it is a 10 on a scale of 10 at its worst, 10 on average, 10 at its least and is a 10 today. The patient reports it is stabbing, aching, sharp, shooting in the lower extremities, again more constant, more severe. The patient reports no new motor or sensory deficits, no new bowel or bladder incontinence or other complaints. PHYSICAL EXAMINATION: VITAL SIGNS: The patient's blood pressure 129/68, pulse 68, respirations are 18, temperature is 97.9 degrees Fahrenheit. Height is 5 feet 5 inches, weighs 193 pounds. GENERAL: The patient is awake, alert, oriented, appropriate, very pleasant demeanor. HEENT: Head is normocephalic, atraumatic. Extraocular movements are intact, symmetrical. Oral cavity: Mucous membranes moist and pink. Dentition is intact. NECK: Shows anterior throat supple without palpable lymphadenopathy noted. Swallow reflex is symmetrical. CHEST: Shows normal on inspection. Breath sounds clear to auscultation bilaterally. HEART: Shows S1, S2 clear. No murmurs auscultated. ABDOMEN: Soft, nontender, nondistended. No palpable organomegaly is noted. No rebound or guarding demonstrated. BACK: Shows spine grossly in the midline. Normal appearing thoracic kyphosis, some minor flattening of lumbar lordotic curvature. Lumbar paraspinous musculature shows symmetrical on inspection, on palpation shows some moderate tenderness diffusely in the middle, upper and lower distribution of paraspinous muscles bilaterally, but only diffusely without specific radiation, without trigger points. The patient shows good rotational motion of lumbar spine, both laterally as well as extension and flexion without significant tenderness noted. EXTREMITIES: The patient's lower extremities show deep tendon reflexes at 2+ in the patella, 1+ tendo-calcaneus tendons. Motor exam is strong with 5/5 dorsiflexion, extension and equal bilaterally. Peripheral pulses are 1+ posterior tibial. No peripheral edema is noted. Options were discussed with the patient. The patient's old chart was reviewed as his current medication regimen and updated. Current review of systems is updated today as well and we will proceed with spinal cord stimulator, temporary lead placements x 2 today. Risks were discussed including but not limited to bleeding, infection, possibility of epidural hematoma, subsequent neurologic compromise, dural punctures, headaches, spinal cord and/or nerve damage, exposure to fluoroscopy and poor results regarding pain control. The patient understands and wished to proceed. The patient will return to clinic in approximately one week for followup and removal of temporary leads. We will reassess the patient's pain level at that time. DIAGNOSES: Lumbar radiculopathy with lumbar degenerative disk disease. PROCEDURE: Temporary spinal cord stimulator lead placement x 2, under sterile prep and drape using local anesthetic using C-arm fluoroscopic guidance with local anesthetic at the entrance point of L3-L4, both right and left paramedian with direct fluoroscopic guidance. The epidural space was entered with preservative-free normal saline, loss of resistance technique without difficulty and without aspiration. Spinal cord stimulator wires were then threaded in without resistance, very readily and extended into the in the midline at the first right paramedian wire with the superior electrode at the superior endplate of the T8 vertebral body. This was confirmed with both AP and lateral views to be in the posterior aspect of the epidural space as well as midline. The left paramedian wire was then threaded without difficulty and without resistance to lie next to the first wire with the superior electrode at the superior endplate of T9 vertebral body, again confirmed with both AP and lateral views and C-arm fluoroscopy to be in the posterior epidural space and in the midline. [place] were withdrawn. Stylets were withdrawn. The wires were then sutured into place under sterile technique and used Tegaderm and Mastisol to secure and then tape reinforcement under sterile technique as well to secure the wires. The patient tolerated procedure well, had no complications. Program was carried out by Donnell Cardenas of [employer] and left in good and stable condition under his own power. LEYDA OATES MD DR: KAE/kishor JOB#: [id number] / [id number]
== END | disposition home or self-care (01) ==
LOC: PNCL 12:55
PROVIDERS: ATTEND Anesthesiology
DX: M51.16 Intervertebral disc disorders with radiculopathy, lumbar region (principal); M47.22 Other spondylosis with radiculopathy, cervical region; M50.10 Cervical disc disorder with radiculopathy, unspecified cervical region; Z88.1 Allergy status to other antibiotic agents
CPT/HCPCS: 63650; C1897

== ENCOUNTER → 2018-06-28 | Outpatient (CLI) | payer OTHER ==
[2013-10-29 10:15] VITALS: BP 144/89
[~2018-06-28] MED LIST changes: -LIDOCAINE 1% PF 2 ML VIAL. ONE
--- NOTE | 2018-06-29 05:24 | PAIN ---
DATE OF SERVICE: 06/28/2018 PROGRESS NOTE FOR PAIN CLINIC DIAGNOSES: Lumbar radiculopathy with lumbar degenerative disk disease. HISTORY OF PRESENT ILLNESS: The patient is a 68-year-old male, who returns for followup status post spinal cord stimulator temporary lead placement 1 week ago with good results after the trial. He has had the stimulator leads for 1 week, has done very well. We kept updated with the [employer] labor representative through his progress in a week and he did note 75% improved since the stimulator was placed. The patient reports he has increased his activity with greater ease, greater distances walking, doing activities around the home, sleeping better, sleeping easier at night, does not awaken him from sleep generally. His mobility has been easier and he has gotten away from using his walker. He is only using a cane now. The patient reports no new motor or sensory deficits, no new changes, no new bowel or bladder incontinence or other complaints. He is very pleased with his progress with the spinal cord stimulator trial. The patient rates his pain over the past week at its worst 7, average 5, at its least 5 and is 5 today. The patient reports it is aching and shooting in the left lower extremity and some stabbing pain occasionally, but again significantly improved with the stimulator after a trial placement. PHYSICAL EXAMINATION: VITAL SIGNS: Today, the patient's blood pressure 114/65, pulse 74, respirations 16, temperature 98.1 degrees Fahrenheit, height is 5 feet 5 inches. The patient's weight is 190 pounds. GENERAL: The patient is awake, alert, oriented, appropriate, very pleasant demeanor. HEENT: Head is normocephalic, atraumatic. Extraocular movements are intact and symmetrical. Oral cavity: Mucous membranes are moist and pink. Dentition intact. NECK: Shows anterior throat supple without palpable lymphadenopathy noted. Swallow reflex symmetrical. CHEST: Shows normal on inspection. Breath sounds clear bilaterally. HEART: Shows S1, S2 clear. ABDOMEN: Soft, nontender, nondistended. BACK: Shows spine grossly in the midline. Normal appearing thoracic kyphosis and mild flattening of lumbar lordotic curvature. The patient's bandages were taken down in the lumbar distribution, showing good placement and integrity of the spinal cord stimulator wires. Under sterile technique, the sutures were cut and wires were removed x 2 with tips intact x 2. Sites clean and dry. No significant erythema, no drainage, no tenderness. It was bandaged on sterile technique as well. PLAN: The patient will be like to pursue a permanent stimulator. We will make the arrangements for this. The patient will continue with activity, stretches, strengthening exercises as well as walking to best of his ability. In the meantime, we will have this arranged for permanent stimulator placement. LEYDA OATES MD DR: KAE/kishor JOB#: [id number] / [id number]
== END ==
LOC: PNCL 13:50
PROVIDERS: ATTEND Anesthesiology
DX: M51.16 Intervertebral disc disorders with radiculopathy, lumbar region (principal)
CPT/HCPCS: G0463

== ENCOUNTER → 2018-11-05 | Outpatient (CLI) | payer OTHER ==
[2013-10-29 10:15] VITALS: BP 144/89
--- NOTE | 2018-11-05 13:05 | KCIC ---
EXAM: Chest, 2 views. HISTORY: Chest pain. Asbestos exposure. COMPARISON: None. FINDINGS: 2 views of the chest are obtained. There are coarse likely chronic interstitial markings. There are few calcified granulomas. The heart is normal in size. There is evidence of prior CABG. No consolidation, pleural effusion or pneumothorax is seen. IMPRESSION: Coarse diffuse interstitial markings suggesting chronic interstitial lung disease. This limits evaluation for interstitial infiltrate. No consolidation is seen. Electronically signed by: La Shell MD (11/05/2018 1:02 PM) [place] [id number]
== END | disposition home or self-care (01) ==
LOC: KCIC 10:43
PROVIDERS: ATTEND Internal Medicine Pulmonary Disease
DX: J84.10 Pulmonary fibrosis, unspecified (principal); Z77.090 Contact with and (suspected) exposure to asbestos; Z95.1 Presence of aortocoronary bypass graft
CPT/HCPCS: 71046

== ENCOUNTER → 2018-12-25 | Outpatient (CLI) | payer OTHER ==
[2013-10-29 10:15] VITALS: BP 144/89
--- NOTE | 2018-12-25 09:51 | CARD ---
MR#: [id number] Date of Study: 12/25/2018 Ordering Physician: ELAN BUTLER, Referring Physician: ELAN BUTLER, Karuna: Celia Chau APPROVED REPORT EXAM: Two-dimensional and M-mode echocardiogram with Doppler and color Doppler. Other Information Quality : AverageHR: 84bpm INDICATION Lightheadedness 2D DIMENSIONS RVDd3.5 (2.9-3.5cm)Left Atrium(2D)4.9 (1.6-4.0cm) IVSd1.0 (0.7-1.1cm)Aortic Root(2D)2.4 (2.0-3.7cm) LVDd4.7 (3.9-5.9cm)LVOT Diameter2.1 (1.8-2.4cm) PWd0.9 (0.7-1.1cm)LVDs3.4 (2.5-4.0cm) FS (%) 27.3 %SV54.7 ml LVEF(%)53.1 (>50%) Aortic Valve AoV Peak Beni.202.1cm/sAoV VTI49.5cm AO Peak GR.16.3mmHgLVOT Peak Beni.82.4cm/s AO Mean GR.10mmHgAVA (VMAX)1.36cm2 Mitral Valve MV E Xjfotujk10.9cm/sMV E Peak Gr.4mmHg MV DECEL [id number] A Davhirem30.9cm/s MV E Mean Gr.2mmHgE/A Ratio1.3 Pulmonary Valve PV Peak Ildehytq31.1cm/s Tricuspid Valve RAP [id number] Pulmonary Vein S1 Mjnmkthb65.5cm/sD2 Gsgrawtw37.9cm/s LEFT VENTRICLE The left ventricle is normal size. There is normal left ventricular wall thickness. The left ventricu lar systolic function is normal and the ejection fraction is within normal range. The Ejection Fracti on is 50-55%. There is normal LV segmental wall motion. Transmitral Doppler flow pattern is Grade II- pseudonormal filling dynamics. RIGHT VENTRICLE The right ventricle is normal size. There is normal right ventricular wall thickness. The right ventr icular systolic function is normal. ATRIA The left atrium size is normal. The right atrium size is normal. The interatrial septum is intact wit h no evidence for an atrial septal defect or patent foramen ovale as noted on 2-D or Doppler imaging. AORTIC VALVE The aortic valve is calcified and displays decreased opening. Doppler and Color Flow revealed no sign ificant aortic regurgitation. There is no significant aortic stenosis. MITRAL VALVE The mitral valve is moderately thickened. There is no evidence of mitral valve prolapse. There is no mitral valve stenosis. Doppler and Color-flow revealed trace mitral regurgitation. TRICUSPID VALVE The tricuspid valve is normal in structure and function. Doppler and Color Flow revealed trace tricus pid regurgitation. There is no tricuspid valve stenosis. PULMONIC VALVE The pulmonic valve is not well visualized. Doppler and Color Flow revealed no pulmonic valvular regur gitation. There is no pulmonic valvular stenosis. GREAT VESSELS The aortic root is normal in size. The ascending aorta is normal in size. The IVC is normal in size a nd collapses >50% with inspiration. PERICARDIAL EFFUSION There is no pleural effusion. There is no evidence of significant pericardial effusion. Critical Notification Critical Value: No <Conclusion> The left ventricular systolic function is normal and the ejection fraction is within normal range. Th e Ejection Fraction is 50-55%. There is normal LV segmental wall motion. The aortic valve is calcified and displays decreased opening. There is no significant aortic stenosis . Signed by : Jovani Escamilla, Electronically Approved : 12/25/2018 09:51:05
== END | disposition home or self-care (01) ==
LOC: ECHO 08:19
PROVIDERS: ATTEND Internal Medicine Cardiovascular Disease
DX: I35.8 Other nonrheumatic aortic valve disorders (principal)
CPT/HCPCS: 93306

== ENCOUNTER → 2019-01-21 | Outpatient (CLI) | payer OTHER ==
[2013-10-29 10:15] VITALS: BP 144/89
--- NOTE | 2019-01-21 16:27 | RAD ---
High-resolution chest CT without contrast Clinical indications: Interstitial lung disease. COMPARISON: May 12, 2008. TECHNIQUE: High-resolution chest CT was performed in inspiration and expiration and prone and supine positioning. Without IV contrast, the sensitivity to detect organ pathology is decreased. PQRS compliance Statement One or more of the following individualized dose reduction techniques were utilized for this study: 1. Automated exposure control 2. Adjustment of the mA and/or kV according to patient size 3. Use of iterative reconstruction technique FINDINGS: Calcified lymph nodes are seen within the mediastinum. No enlarged thoracic lymphadenopathy is evident. No focal aneurysmal dilatation of the thoracic aorta is seen. Calcified atheromatous disease of the coronary arteries is seen. Bilateral bronchitis and bronchiectasis is seen. Bilateral subpleural peripheral interstitial lung disease and mild honeycombing is seen consistent with pulmonary fibrosis. No lower lung zone or upper lung zone predominance is seen. No lung mass or lung consolidation is evident. There is a calcified granuloma of the lateral aspect of the inferior portion of the right middle lobe. No groundglass lung infiltrates are seen. No bronchovascular beading is evident. There are scattered areas of air-trapping bilaterally due to distal airway disease. IMPRESSION: Bilateral pulmonary fibrosis. Bilateral bronchiectasis and bronchitis. Calcified atheromatous disease of the coronary arteries. Electronically signed by: Zenon Del Cid MD (01/21/2019 4:24 PM) [facility]
== END | disposition home or self-care (01) ==
LOC: CT 09:48
PROVIDERS: ATTEND Internal Medicine Pulmonary Disease
DX: J40 Bronchitis, not specified as acute or chronic (principal); J84.10 Pulmonary fibrosis, unspecified; J47.9 Bronchiectasis, uncomplicated; I25.10 Atherosclerotic heart disease of native coronary artery without angina pectoris; I10 Essential (primary) hypertension; E11.9 Type 2 diabetes mellitus without complications; Z87.891 Personal history of nicotine dependence
CPT/HCPCS: 71250

== ENCOUNTER → 2019-04-11 | Outpatient (CLI) | payer MEDICARE, OTHER ==
[2013-10-29 10:15] VITALS: BP 144/89
--- NOTE | 2019-04-11 08:28 | RAD ---
Examination: Ultrasound kidneys HISTORY: History of renal stones COMPARISON: None available FINDINGS: The right kidney measures 9.5 x 6.1 x 6.1 cm. The left kidney measures 11.4 x 4.4 x 6.9 cm. No evidence of hydronephrosis. Partially visualized gallstones identified within the gallbladder. Increased echogenicity identified in the liver. Urinary bladder is mildly distended. IMPRESSION: 1. The visualized kidneys and urinary bladder grossly appears unremarkable. 2. Incidental note of cholelithiasis. 3. Increased echogenicity identified in the liver probably hepatic steatosis. Electronically signed by: Barry Diaz MD (04/11/2019 8:25 AM) [id number]
== END | disposition home or self-care (01) ==
LOC: US 07:58
PROVIDERS: ATTEND Psychiatry & Neurology Neurology
DX: K80.20 Calculus of gallbladder without cholecystitis without obstruction (principal); N32.89 Other specified disorders of bladder
CPT/HCPCS: 76770

== ENCOUNTER 2019-07-07 15:59 | Inpatient (IN) | payer MEDICARE ==
[~2019-07-07] VITALS: Ht 165.1 cm; Wt 90.5 kg
--- NOTE | 2019-07-07 16:10 | PHYS DOC ---
Past Medical History Past Medical History: Cancer, Diabetes-Type II, High Cholesterol, Hypertension (CK BARON APRN) Past Surgical History: Coronary Bypass Surgery Additional Past Surgical Histo: carpal tunnel surgery left arm, ganglian cyst left wrist (CK BARON APRN) Alcohol Use: None Drug Use: None (CK BARON APRN) General Adult EDM: Chief Complaint: BACK PAIN - NO INJURY HPI: HPI: Patient is a 69 year old Male who presents with worked on his sisters riding rn unit manager yesterday and now has left lower back pain today. He states that he does have chronic back problems and disc problems but when it flares up usually Tramadol takes care of it. Left low back is sharp and nonradiating and states he can hardly walk. He states that he does have a neurosurgeon and was supposed to get a stimulator placed in his back but has not. Rates pain a 10/10. Denies saddle paresthesia. Denies incontinence. Moves all extremities within normal limits. Left leg does hurt if he raises it up too far. He states is very painful to try to walk. (CK BARON REVIEW SPECIALIST) Review of Systems: Review of Systems: Musculoskeletal: Left low back pain or Denies joint pain. [] (CK BARON REVIEW SPECIALIST) Heart Score: Risk Factors: Risk Factors: DM, Current or recent (<one month) smoker, HTN, HLP, family history of CAD, obesity. Risk Scores: Score 0 - 3: 2.5% MACE over next 6 weeks - Discharge Home Score 4 - 6: 20.3% MACE over next 6 weeks - Admit for Clinical Observation Score 7 - 10: 72.7% MACE over next 6 weeks - Early Invasive Strategies (CK BARON REVIEW SPECIALIST) Allergies: Allergies: Allergies Coded Allergies Type Severity Reaction Last Updated Verified amoxicillin Adverse Reaction Intermediate Nausea/Vomiting, GI upset 10/24/13 Yes (CK BARON APRN) Physical Exam: PE: Constitutional: Well developed, well nourished, no acute distress, non-toxic appearance. [] HENT: Normocephalic, atraumatic, bilateral external ears normal, oropharynx moist, no oral exudates, nose normal. [] Eyes: PERRLA, EOMI, conjunctiva normal, no discharge. [] Neck: Normal range of motion, no tenderness, supple, no stridor. [] Cardiovascular:Heart rate regular rhythm, no murmur [] Lungs & Thorax: Bilateral breath sounds clear to auscultation [] Abdomen: Bowel sounds normal, soft, no tenderness, no masses, no pulsatile masses. [] Skin: Warm, dry, no erythema, no rash. [] Back: Left lower back tenderness, no CVA tenderness. [] Extremities: No tenderness, no cyanosis, no clubbing, ROM intact, no edema. [] Neurologic: Alert and oriented X 3, normal motor function, normal sensory function, no focal deficits noted. [] Psychologic: Affect normal, judgement normal, mood normal. [] (CK BARON APRN) EKG: EKG: [] (CK BARON APRN) Radiology/Procedures: Radiology/Procedures: [] Impression: [facility] [address] [place] [address] IMAGING REPORT Signed PATIENT: NGOZI PENA ACCOUNT: [id number] : 1950 LOCATION: ER AGE: 69 SEX: M EXAM STATUS: REG ER ORD. PHYSICIAN: CK BARON APRN REASON: BACK PAIN PROCEDURE: CT LUMBAR SPINE WO CONTRAST EXAM: CT Lumbar Spine without IV contrast INDICATION: Reason: BACK PAIN / Spl. Instructions: / History: TECHNIQUE: Multi-detector row CT images were obtained through the lumbar spine without the use of IV contrast. Post-processing sagittal and coronal reconstructed images were obtained for interpretation. All CT scans performed at this facility utilize dose optimization techniques as appropriate to the exam, including the following: Automated exposure control and adjustment of the mA and/or KV according to patient size (this includes techniques or standardized protocols for targeted exams where dose is indication/reason for exam). COMPARISON: High-resolution chest CT of 01/21/2019 FINDINGS: The lowest fully formed disc is referred to as the L5-S1 level. ALIGNMENT: Alignment is within normal limits. OSSEOUS: No evidence of fracture or bone destruction. DISC SPACES: Varying degrees of disc space narrowing most conspicuous at L2-L3. FACET JOINTS: Unremarkable. SPINAL CANAL: Combination of disc and facet hypertrophic change likely results in moderate central canal stenosis at L2-L3 and mild central canal narrowing at L3-L4. Central disc protrusion at L4-L5 mildly flattening the ventral thecal sac NEUROFORAMINA: Unremarkable. SOFT TISSUES: Interlobular septal thickening and mild bronchiectasis in the bilateral lower lobes, suggestive of pulmonary fibrosis. Extensive arterial calcifications in the abdominal aorta and its image major branch vessels. IMPRESSION: No acute osseous abnormality in the lumbar spine with multilevel disc degenerative spondylosis as described. More detailed evaluation could be pursued with CT lumbar myelography or MRI if clinically warranted. Electronically signed by: Toan Huddleston MD (07/07/2019 5:14 PM) [facility] [place] DICTATED and SIGNED BY: TOAN HUDDLESTON MD DATE: 07/07/191713 (CK BARON APRN) Course & Med Decision Making: Course & Med Decision Making Pertinent Labs and Imaging studies reviewed. (See chart for details) Left lower back tenderness with palpation. No bruising or redness or swelling or deformity noted. Patient denies any numbness or tingling. Alert and oriented. Speaks in full clear sentences. Denies dysuria symptoms. Afebrile. No focal bony spinal tenderness. Patient sees Dr. Sheikh. Patient was given Fentanyl and Solu-Medrol. Patient is still in a lot of pain. Patient unable to ambulate. I have now ordered morphine for the patient. I have spoken to Dr Kennedy and he states to admit and a MRI can be done tomorrow. Patient admitted to Dr Brush. [] (CK BARON APRN) Dragon Disclaimer: Dragon Disclaimer: This electronic medical record was generated, in whole or in part, using a voice recognition dictation system. (CK BARON APRN) Departure Departure Impression: Primary Impression: Intractable low back pain Disposition: ADMITTED INPATIENT Admitting Physician: MEMO (CK BARON APRN) Condition: STABLE Referrals: GRANT MAXWELL DO (PCP) Attending Signature Attending Signature I have participated in the care of this patient and I have reviewed and agree with all pertinent clinical information above including history, exam, and recommendations. (GOLMADINA TOLENTINO DEANNA M APRN July 07, 2019 16:10 MADINA ALDRICH DO Jul 10, 2019 05:58
[2019-07-07] MEDS ORDERED: ORPHENADRINE CITRATE 60 MG/2 ML VIAL. IM ONE (16:15)
[2019-07-07] MEDS ORDERED: fentaNYL PF VIAL 100 MCG/2 ML VIAL IVP ONE (16:15)
--- NOTE | 2019-07-07 17:17 | RAD ---
EXAM: CT Lumbar Spine without IV contrast INDICATION: Reason: BACK PAIN / Spl. Instructions: / History: TECHNIQUE: Multi-detector row CT images were obtained through the lumbar spine without the use of IV contrast. Post-processing sagittal and coronal reconstructed images were obtained for interpretation. All CT scans performed at this facility utilize dose optimization techniques as appropriate to the exam, including the following: Automated exposure control and adjustment of the mA and/or KV according to patient size (this includes techniques or standardized protocols for targeted exams where dose is indication/reason for exam). COMPARISON: High-resolution chest CT of 01/21/2019 FINDINGS: The lowest fully formed disc is referred to as the L5-S1 level. ALIGNMENT: Alignment is within normal limits. OSSEOUS: No evidence of fracture or bone destruction. DISC SPACES: Varying degrees of disc space narrowing most conspicuous at L2-L3. FACET JOINTS: Unremarkable. SPINAL CANAL: Combination of disc and facet hypertrophic change likely results in moderate central canal stenosis at L2-L3 and mild central canal narrowing at L3-L4. Central disc protrusion at L4-L5 mildly flattening the ventral thecal sac NEUROFORAMINA: Unremarkable. SOFT TISSUES: Interlobular septal thickening and mild bronchiectasis in the bilateral lower lobes, suggestive of pulmonary fibrosis. Extensive arterial calcifications in the abdominal aorta and its image major branch vessels. IMPRESSION: No acute osseous abnormality in the lumbar spine with multilevel disc degenerative spondylosis as described. More detailed evaluation could be pursued with CT lumbar myelography or MRI if clinically warranted. Electronically signed by: Michael Huddleston MD (07/07/2019 5:14 PM) [facility] [place]
[2019-07-07 17:43] LABS: BASO % 1 % (0-3); EOS # 0.3 x10^3/uL (0.0-0.7); EOS % 3 % (0-3); HEMATOCRIT 41.9 % (39.0-53.0); HEMOGLOBIN 14.3 g/dL (13.0-17.5); LYMPH # 1.6 x10^3/uL (1.0-4.8); LYMPH % 18 % (24-48); MEAN CORPUSCULAR HEMOGLOBIN 30 pg (25-35); MEAN CORPUSCULAR HGB CONC 34 g/dL (31-37); MEAN CORPUSCULAR VOLUME 88 fL (79-100); MONO # 0.6 x10^3/uL (0.0-1.1); MONO % 7 % (0-9); NEUT # 6.4 x10^3/uL (1.8-7.7); NEUT % 72 % (31-73); PLATELET COUNT 315 x10^3/uL (140-400); RED BLOOD COUNT 4.78 x10^6/uL (4.30-5.70); WHITE BLOOD COUNT 8.9 x10^3/uL (4.0-11.0)
[2019-07-07 17:46] LABS: BILIRUBIN,URINE NEGATIVE (NEG); CLARITY,URINE CLEAR; COLOR,URINE YELLOW; NITRITE,URINE NEGATIVE (NEG); PH,URINE 5.5 (<5.0-8.0); PROTEIN,URINE NEGATIVE (NEG-TRACE); UROBILINOGEN,URINE 0.2 mg/dL (0.2 mg/dL)
[2019-07-07 17:53] LABS: CALCIUM 8.3 mg/dL (8.5-10.1); GFR 74.3; POTASSIUM 3.2 mmol/L (3.5-5.1)
[2019-07-07 17:57] LABS: BACTERIA,URINE 0 /HPF (0-FEW); RBC,URINE 0 /HPF (0-2); SPERM,URINE PRESENT /HPF; SQUAMOUS EPITHELIAL CELL,UR FEW /LPF; WBC,URINE 0 /HPF (0-4)
[2019-07-07 17:59] LABS: ALBUMIN 3.7 g/dL (3.4-5.0); TOTAL BILIRUBIN 0.6 mg/dL (0.2-1.0); TOTAL PROTEIN 7.4 g/dL (6.4-8.2)
[2019-07-07] MEDS ORDERED: methylPREDNISolone SOD SUCC PF 125 MG/2 ML VIAL. IV ONE (18:00)
[2019-07-07] MEDS ORDERED: ONDANSETRON PF 4 MG/2 ML VIAL. IV PRN ×2 (18:30→22:00)
[2019-07-07] MEDS ORDERED: MORPHINE SULFATE 2 MG/ML VIAL. IV PRN (18:30)
[2019-07-07] MEDS ORDERED: MORPHINE SULFATE 4 MG/ML VIAL. IV ONE (18:45)
[2019-07-07] MEDS: fentaNYL PF VIAL 100 MCG/2 ML VIAL IVP PRN ×3 (19:03→23:39)
[2019-07-07] MEDS ORDERED: KETOROLAC 30 MG/ML VIAL. IVP ONE (19:30)
[2019-07-07 21:00] VITALS: BP 157/77
[2019-07-07] MEDS: ENOXAPARIN 40 MG/0.4 ML SYRINGE. SQ SCH (22:00)
[2019-07-07] MEDS ORDERED: ACETAMINOPHEN 325 MG TABLET. PO PRN (22:00)
[2019-07-07] MEDS ORDERED: DEXTROSE 50% 25 GM / 50ML DISP.SYRIN. IV PRN (22:00)
[2019-07-07] MEDS ORDERED: POTASSIUM CHLORIDE 20 MEQ TABLET.ER. PO ONE (22:15)
[2019-07-07] MEDS ORDERED: PRAMIPEXOLE 0.25 MG TABLET. PO SCH (22:30)
[2019-07-07 22:40] LABS: C-REACTIVE PROTEIN 1.5 mg/L (0-3.3); MAGNESIUM 1.4 mg/dL (1.8-2.4)
[2019-07-07 23:00] VITALS: BP 150/82
[2019-07-07] MEDS: POTASSIUM CHLORIDE 10MEQ 100 ML IV SCH (23:24)
[2019-07-07] MEDS: GABAPENTIN 300 MG CAPSULE. PO SCH (23:24)
[2019-07-07] MEDS: OMEGA-3 FATTY ACIDS/FISH OIL 1,000 MG CAPSULE. PO SCH (23:25)
[2019-07-07] MEDS: FLUoxetine HCL 20 MG CAPSULE PO SCH (23:25)
[2019-07-07] MEDS: VITAMIN B12,B9,B6 COMPLEX 1 TABLET. PO SCH (23:25)
[2019-07-07] MEDS: PRAMIPEXOLE 1 MG TABLET. PO SCH (23:26)
[2019-07-07] MEDS: traZODone 50 MG TABLET. PO SCH (23:26)
[2019-07-08] MEDS: POTASSIUM CHLORIDE 10MEQ 100 ML IV SCH (00:50)
[2019-07-08 03:00] VITALS: BP 139/73
[2019-07-08 07:00] VITALS: BP 129/77
[2019-07-08 07:09] LABS: CALCIUM 8.4 mg/dL (8.5-10.1); CREATININE 1.1 mg/dL (0.7-1.3); GFR 66.6; POTASSIUM 4.4 mmol/L (3.5-5.1)
[2019-07-08] MEDS: PANTOPRAZOLE 40 MG TABLET.DR. PO SCH (08:21)
[2019-07-08] MEDS: ASPIRIN CHEWABLE 81 MG TABLET. PO SCH (08:21)
[2019-07-08] MEDS: INSULIN LISPRO 300 UNITS/3 ML VIAL. SQ SCH ×4 (08:22→21:00)
[2019-07-08] MEDS: FERROUS SULFATE 325 MG TABLET. PO SCH (09:16)
[2019-07-08] MEDS: CHOLECALCIFEROL (VITAMIN D3) 1,000 UNIT TABLET PO SCH (09:16)
[2019-07-08] MEDS: METOPROLOL SUCC 24HR ER 50 MG TAB.ER.24H. PO SCH (09:17)
[2019-07-08] MEDS: GABAPENTIN 300 MG CAPSULE. PO SCH ×3 (09:17→21:16)
[2019-07-08] MEDS: OMEGA-3 FATTY ACIDS/FISH OIL 1,000 MG CAPSULE. PO SCH ×2 (09:17→21:16)
[2019-07-08] MEDS: amLODIPine BESYLATE 5 MG TABLET PO SCH (09:17)
[2019-07-08] MEDS: LOSARTAN POTASSIUM 50 MG TABLET. PO SCH (09:17)
[2019-07-08] MEDS: VITAMIN B12,B9,B6 COMPLEX 1 TABLET. PO SCH ×2 (09:17→21:15)
[2019-07-08] MEDS: fentaNYL PF VIAL 100 MCG/2 ML VIAL IVP PRN (09:18)
--- NOTE | 2019-07-08 09:49 | PDOC2 ---
NEUROLOGY CONSULT Date of Admission Date of Admission DATE: 07/08/19 TIME: 09:41 Reason for Consult Reason for Consult: Low back pain Referring Physician Referring Physician: Dr. Tierney Source Source: Chart review, Patient History of Present Illness History of Present Illness The patient is a 69-year-old right-handed male with chronic low back pain. He has seen Dr. Garcia who gave an epidural injections. He tried to obtain a lumbar stimulator, but insurance denied. Patient was riding his sister's riding lawnmower and developed increased back pain. This is non-radiating. He has trouble walking because the pain. Dr. Baum and myself have followed him in the past for restless legs. Dr. Baum checked a renal ultrasound and there was no renal stone, 3 months ago. There is no history of stroke, seizure, or head injury. Patient denies any incontinence. Past Medical History Cardiovascular: CAD, HTN, Hyperlipidemia Pulmonary: Other ( sleep apnea) CENTRAL NERVOUS SYSTEM: Other ( restless leg syndrome) GI: GERD Musculoskeletal: low back pain, Osteoarthritis Endocrine: Diabetes Dermatology: Other ( skin cancer removed from face) Past Surgical History Past Surgical History: CABG, Other (Oral, right carpal tunnel) Family History Family History: Cancer Social History Social History , retired, no alcohol or tobacco Current Medications Current Medications Current Medications Orphenadrine Citrate (Norflex) 60 mg 1X ONCE IM Last administered on 07/07/19at 16:16; Start 07/07/19 at 16:15; Stop 07/07/19 at 16:16; Status DC Fentanyl Citrate (Fentanyl 2ml Vial) 50 mcg 1X ONCE IVP Last administered on 07/07/19at 16:29; Start 07/07/19 at 16:15; Stop 07/07/19 at 16:16; Status DC Methylprednisolone Sodium Succinate (SOLU-Medrol 125MG VIAL) 125 mg 1X ONCE IV Last administered on 07/07/19at 17:36; Start 07/07/19 at 18:00; Stop 07/07/19 at 18:01; Status DC Morphine Sulfate (Morphine Sulfate) 4 mg 1X ONCE IV Last administered on 07/07/19at 18:22; Start 07/07/19 at 18:45; Stop 07/07/19 at 18:46; Status DC Ondansetron HCl (Zofran) 4 mg PRN Q8HRS PRN IV NAUSEA/VOMITING; Start 07/07/19 at 18:30; Stop 07/07/19 at 22:04; Status DC Morphine Sulfate (Morphine Sulfate) 2 mg PRN Q2HRS PRN IV PAIN; Start 07/07/19 at 18:30; Stop 07/07/19 at 18:56; Status DC Ketorolac Tromethamine (Toradol 30mg Vial) 30 mg 1X ONCE IVP Last administered on 07/07/19at 19:02; Start 07/07/19 at 19:30; Stop 07/07/19 at 19:31; Status DC Fentanyl Citrate (Fentanyl 2ml Vial) 50 mcg PRN Q2HR PRN IVP PAIN Last administered on 07/08/19at 09:18; Start 07/07/19 at 19:00 Ondansetron HCl (Zofran) 4 mg PRN Q4HRS PRN IV NAUSEA/VOMITING; Start 07/07/19 at 22:00 Potassium Chloride/Water 100 ml @ 100 mls/hr Q1H IV Last administered on 07/08/19at 00:50; Start 07/07/19 at 22:15; Stop 07/08/19 at 00:14; Status DC Potassium Chloride (Klor-Con) 40 meq 1X ONCE PO Last administered on 07/07/19at 23:25; Start 07/07/19 at 22:15; Stop 07/07/19 at 22:16; Status DC Enoxaparin Sodium (Lovenox 40mg Syringe) 40 mg Q24H SQ Last administered on 07/07/19at 22:00; Start 07/07/19 at 22:00 Insulin Human Lispro (HumaLOG) 0-7 UNITS TIDACHC SQ Last administered on 07/08/19at 08:22; Start 07/08/19 at 07:30 Dextrose (Dextrose 50%-Water Syringe) 12.5 gm PRN Q15MIN PRN IV SEE COMMENTS; Start 07/07/19 at 22:00 Acetaminophen (Tylenol) 650 mg PRN Q6HRS PRN PO MILD PAIN / TEMP > 100.3'F; Start 07/07/19 at 22:00 Amlodipine Besylate (Norvasc) 10 mg DAILY PO Last administered on 07/08/19at 09:17; Start 07/08/19 at 09:00 Aspirin (Aspirin Chewable) 81 mg DAILYWBKFT PO Last administered on 07/08/19at 08:21; Start 07/08/19 at 08:00 Ferrous Sulfate (Feosol) 325 mg DAILY PO Last administered on 07/08/19at 09:16; Start 07/08/19 at 09:00 Pramipexole Dihydrochloride (miraPEX) 1 mg HS PO ; Start 07/07/19 at 22:30; Stop 07/07/19 at 22:19; Status DC Trazodone HCl (Desyrel) 50 mg QHS PO Last administered on 07/07/19at 23:26; Start 07/07/19 at 22:30 Vitamin D (Vitamin D3) 4,000 unit DAILY PO Last administered on 07/08/19at 09:16; Start 07/08/19 at 09:00 Fluoxetine HCl (PROzac) 40 mg HS PO Last administered on 07/07/19at 23:25; Start 07/07/19 at 22:30 Gabapentin (Neurontin) 600 mg TID PO Last administered on 07/08/19at 09:17; Start 07/07/19 at 22:30 Losartan Potassium (Cozaar) 100 mg DAILY PO Last administered on 07/08/19at 09:17; Start 07/08/19 at 09:00 Metoprolol Succinate (Toprol Xl) 50 mg DAILY PO Last administered on 07/08/19at 09:17; Start 07/08/19 at 09:00 Fish Oil (Fish Oil) 1,000 mg BID PO Last administered on 07/08/19at 09:17; Start 07/07/19 at 22:30 Pantoprazole Sodium (Protonix) 40 mg DAILYAC PO Last administered on 07/08/19at 08:21; Start 07/08/19 at 07:30 Vitamin B Complex (Folbic Tablet) 1 tab BID PO Last administered on 07/08/19at 09:17; Start 07/07/19 at 22:30 Pramipexole Dihydrochloride (miraPEX) 1 mg HS PO Last administered on 07/07/19at 23:26; Start 07/07/19 at 22:30 Tizanidine HCl (Zanaflex) 4 mg Q8HRS PO ; Start 07/08/19 at 09:30 Methylprednisolone Acetate (DEPO-Medrol 40MG VIAL) 40 mg 1X ONCE IM ; Start 07/08/19 at 10:00; Stop 07/08/19 at 10:01 Bupivacaine HCl (Sensorcaine-Mpf 0.25%) 10 ml 1X ONCE IJ ; Start 07/08/19 at 10:00; Stop 07/08/19 at 10:01 Active Scripts Active Reported Fluoxetine Hcl 40 Mg Capsule 1 Cap PO HS Vitamin D (Cholecalciferol (Vitamin D3)) 2,000 Unit Capsule 4,000 Unit PO DAILY Mirapex (Pramipexole Di-Hcl) 0.25 Mg Tablet 1 Mg PO HS Vitamin B Complex 1 Each Capsule 1 Each PO BID Requip (Ropinirole Hcl) 1 Mg Tablet 2 Tab PO QHS Protonix (Pantoprazole Sodium) 20 Mg Tablet.dr 40 Mg PO DAILY Aspirin 81 Mg Tab.chew 1 Tab PO DAILY Trazodone Hcl 50 Mg Tablet 1 Tab PO QHS Norvasc (Amlodipine Besylate) 5 Mg Tablet 10 Mg PO DAILY Iron Supplement (Ferrous Sulfate) 325 Mg Tablet 65 Mg PO DAILY Metformin Hcl 1,000 Mg Tablet 1,000 Mg PO BID Fish Oil + D3 Softgel ([place]-3S/Dha/Epa/Fish Oil/D3) 1 Each Capsule 1 Each PO BID Losartan Potassium 100 Mg Tablet 100 Mg PO DAILY Gabapentin 600 Mg Tablet 600 Mg PO TID Centrum Silver Ultra Men's Tab (Multivitamin W-Minerals/Lutein) 1 Each Tablet 1 Each PO Toprol Xl (Metoprolol Succinate) 50 Mg Tab.er.24h 50 Mg PO DAILY Allergies Allergies: Coded Allergies: amoxicillin (Verified Adverse Reaction, Intermediate, Nausea/Vomiting, GI upset, 10/24/13) ROS Review of System Negative for fever, chills, weight loss, shortness of breath, chest pain, ind igestion, hematochezia, melena, and dysuria. Full 14-point review of systems is negative. Physical Exam Physical Examination General: Well-developed, well-nourished white male in no acute distress HEENT: Normocephalic andatraumatic.Temporal arteriespulsatile and nontender. Neck: Supple without bruit, no meningismus Musculoskeletal: Stability:see neurologic. Gait exam:see neurologic. Tone:see neurologic.Strength:see neurologic. Back: Normal straight leg raise, no particular deformity, paraspinal muscle spasm Neurological: Mental Status:intact, orientation, memory, attention span/concentration, language, fund of knowledge normal. Cranial Nerves:Pupils equal and reactive to light, extraocular movements areintact, visual posey are full to confrontation. Facial sensation is normal. There is no facial asymmetry. Vestibulo-ocular reflex is intact. Palate elevates and tongue protrudes in midline. All other cranial related problems are negative except as mentioned before.Reflexes:2+ and symmetric with flexor plantar responses. Motor:5/5 strength with normal tone and bulk. Coordination:Finger-nose finger and hxdv-[id number] testing are normal. Rapid alternating movements and fine finger movements are intact. Gait: not tested. Sensory:Normal pinprick, vibration, light touch, proprioception. Vitals VITALS Vital Signs Date Time Temp Pulse Resp B/P (MAP) Pulse Ox O2 Delivery O2 Flow Rate FiO2 07/08/19 09:17 78 129/77 07/08/19 08:30 Room Air 07/08/19 07:00 92.8 18 93 92.8 Labs Labs Laboratory Tests Test 07/07/19 16:20 07/07/19 17:37 07/07/19 19:47 07/08/19 05:55 White Blood Count 8.9 x10^3/uL (4.0-11.0) Red Blood Count 4.78 x10^6/uL (4.30-5.70) Hemoglobin 14.3 g/dL (13.0-17.5) Hematocrit 41.9 % (39.0-53.0) Mean Corpuscular Volume 88 fL (79-100) Mean Corpuscular Hemoglobin 30 pg (25-35) Mean Corpuscular Hemoglobin Concent 34 g/dL (31-37) Red Cell Distribution Width 14.0 % (11.5-14.5) Platelet Count 315 x10^3/uL (140-400) Neutrophils (%) (Auto) 72 % (31-73) Lymphocytes (%) (Auto) 18 % (24-48) Monocytes (%) (Auto) 7 % (0-9) Eosinophils (%) (Auto) 3 % (0-3) Basophils (%) (Auto) 1 % (0-3) Neutrophils # (Auto) 6.4 x10^3/uL (1.8-7.7) Lymphocytes # (Auto) 1.6 x10^3/uL (1.0-4.8) Monocytes # (Auto) 0.6 x10^3/uL (0.0-1.1) Eosinophils # (Auto) 0.3 x10^3/uL (0.0-0.7) Basophils # (Auto) 0.0 x10^3/uL (0.0-0.2) Sodium Level 139 mmol/L (136-145) 137 mmol/L (136-145) Potassium Level 3.2 mmol/L (3.5-5.1) 4.4 mmol/L (3.5-5.1) Chloride Level 101 mmol/L (98-107) 100 mmol/L (98-107) Carbon Dioxide Level 27 mmol/L (21-32) 25 mmol/L (21-32) Anion Gap 11 (6-14) 12 (6-14) Blood Urea Nitrogen 13 mg/dL (8-26) 19 mg/dL (8-26) Creatinine 1.0 mg/dL (0.7-1.3) 1.1 mg/dL (0.7-1.3) Estimated GFR (Cockcroft-Gault) 74.3 66.6 BUN/Creatinine Ratio 13 (6-20) Glucose Level 164 mg/dL (70-99) 194 mg/dL (70-99) Calcium Level 8.3 mg/dL (8.5-10.1) 8.4 mg/dL (8.5-10.1) Magnesium Level 1.4 mg/dL (1.8-2.4) Total Bilirubin 0.6 mg/dL (0.2-1.0) Aspartate Amino Transf (AST/SGOT) 25 U/L (15-37) Alanine Aminotransferase (ALT/SGPT) 47 U/L (16-63) Alkaline Phosphatase 92 U/L (46-116) C-Reactive Protein, Quantitative 1.5 mg/L (0-3.3) Total Protein 7.4 g/dL (6.4-8.2) Albumin 3.7 g/dL (3.4-5.0) Albumin/Globulin Ratio 1.0 (1.0-1.7) Urine Collection Type Unknown Urine Color Yellow Urine Clarity Clear Urine pH 5.5 (<5.0-8.0) Urine Specific Delong 1.020 (1.000-1.030) Urine Protein Negative mg/dL (NEG-TRACE) Urine Glucose (UA) 500 mg/dL (NEG) Urine Ketones (Stick) Negative mg/dL (NEG) Urine Blood Negative (NEG) Urine Nitrite Negative (NEG) Urine Bilirubin Negative (NEG) Urine Urobilinogen Dipstick 0.2 mg/dL (0.2 mg/dL) Urine Leukocyte Esterase Negative (NEG) Urine RBC 0 /HPF (0-2) Urine WBC 0 /HPF (0-4) Urine Squamous Epithelial Cells Few /LPF Urine Bacteria 0 /HPF (0-FEW) Urine Mucus Marked /LPF Urine Sperm Present /HPF Glucose (Fingerstick) 148 mg/dL (70-99) Test 07/08/19 07:29 Glucose (Fingerstick) 166 mg/dL (70-99) Laboratory Tests Test 07/07/19 16:20 07/07/19 17:37 07/07/19 19:47 07/08/19 05:55 White Blood Count 8.9 x10^3/uL (4.0-11.0) Red Blood Count 4.78 x10^6/uL (4.30-5.70) Hemoglobin 14.3 g/dL (13.0-17.5) Hematocrit 41.9 % (39.0-53.0) Mean Corpuscular Volume 88 fL (79-100) Mean Corpuscular Hemoglobin 30 pg (25-35) Mean Corpuscular Hemoglobin Concent 34 g/dL (31-37) Red Cell Distribution Width 14.0 % (11.5-14.5) Platelet Count 315 x10^3/uL (140-400) Neutrophils (%) (Auto) 72 % (31-73) Lymphocytes (%) (Auto) 18 % (24-48) Monocytes (%) (Auto) 7 % (0-9) Eosinophils (%) (Auto) 3 % (0-3) Basophils (%) (Auto) 1 % (0-3) Neutrophils # (Auto) 6.4 x10^3/uL (1.8-7.7) Lymphocytes # (Auto) 1.6 x10^3/uL (1.0-4.8) Monocytes # (Auto) 0.6 x10^3/uL (0.0-1.1) Eosinophils # (Auto) 0.3 x10^3/uL (0.0-0.7) Basophils # (Auto) 0.0 x10^3/uL (0.0-0.2) Sodium Level 139 mmol/L (136-145) 137 mmol/L (136-145) Potassium Level 3.2 mmol/L (3.5-5.1) 4.4 mmol/L (3.5-5.1) Chloride Level 101 mmol/L (98-107) 100 mmol/L (98-107) Carbon Dioxide Level 27 mmol/L (21-32) 25 mmol/L (21-32) Anion Gap 11 (6-14) 12 (6-14) Blood Urea Nitrogen 13 mg/dL (8-26) 19 mg/dL (8-26) Creatinine 1.0 mg/dL (0.7-1.3) 1.1 mg/dL (0.7-1.3) Estimated GFR (Cockcroft-Gault) 74.3 66.6 BUN/Creatinine Ratio 13 (6-20) Glucose Level 164 mg/dL (70-99) 194 mg/dL (70-99) Calcium Level 8.3 mg/dL (8.5-10.1) 8.4 mg/dL (8.5-10.1) Magnesium Level 1.4 mg/dL (1.8-2.4) Total Bilirubin 0.6 mg/dL (0.2-1.0) Aspartate Amino Transf (AST/SGOT) 25 U/L (15-37) Alanine Aminotransferase (ALT/SGPT) 47 U/L (16-63) Alkaline Phosphatase 92 U/L (46-116) C-Reactive Protein, Quantitative 1.5 mg/L (0-3.3) Total Protein 7.4 g/dL (6.4-8.2) Albumin 3.7 g/dL (3.4-5.0) Albumin/Globulin Ratio 1.0 (1.0-1.7) Urine Collection Type Unknown Urine Color Yellow Urine Clarity Clear Urine pH 5.5 (<5.0-8.0) Urine Specific Delong 1.020 (1.000-1.030) Urine Protein Negative mg/dL (NEG-TRACE) Urine Glucose (UA) 500 mg/dL (NEG) Urine Ketones (Stick) Negative mg/dL (NEG) Urine Blood Negative (NEG) Urine Nitrite Negative (NEG) Urine Bilirubin Negative (NEG) Urine Urobilinogen Dipstick 0.2 mg/dL (0.2 mg/dL) Urine Leukocyte Esterase Negative (NEG) Urine RBC 0 /HPF (0-2) Urine WBC 0 /HPF (0-4) Urine Squamous Epithelial Cells Few /LPF Urine Bacteria 0 /HPF (0-FEW) Urine Mucus Marked /LPF Urine Sperm Present /HPF Glucose (Fingerstick) 148 mg/dL (70-99) Test 07/08/19 07:29 Glucose (Fingerstick) 166 mg/dL (70-99) Images Images CT Lumbar Spine without IV contrast INDICATION: Reason: BACK PAIN / Spl. Instructions: / History: TECHNIQUE: Multi-detector row CT images were obtained through the lumbar spine without the use of IV contrast. Post-processing sagittal and coronal reconstructed images were obtained for interpretation. All CT scans performed at this facility utilize dose optimization techniques as appropriate to the exam, including the following: Automated exposure control and adjustment of the mA and/or KV according to patient size (this includes techniques or standardized protocols for targeted exams where dose is indication/reason for exam). COMPARISON: High-resolution chest CT of 01/21/2019 FINDINGS: The lowest fully formed disc is referred to as the L5-S1 level. ALIGNMENT: Alignment is within normal limits. OSSEOUS: No evidence of fracture or bone destruction. DISC SPACES: Varying degrees of disc space narrowing most conspicuous at L2-L3. FACET JOINTS: Unremarkable. SPINAL CANAL: Combination of disc and facet hypertrophic change likely results in moderate central canal stenosis at L2-L3 and mild central canal narrowing at L3-L4. Central disc protrusion at L4-L5 mildly flattening the ventral thecal sac NEUROFORAMINA: Unremarkable. SOFT TISSUES: Interlobular septal thickening and mild bronchiectasis in the bilateral lower lobes, suggestive of pulmonary fibrosis. Extensive arterial calcifications in the abdominal aorta and its image major branch vessels. IMPRESSION: No acute osseous abnormality in the lumbar spine with multilevel disc degenerative spondylosis as described. More detailed evaluation could be pursued with CT lumbar myelography or MRI if clinically warranted. Assessment/Plan Assessment/Plan Impression: Exacerbation of chronic back pain, I am not picking up on any type of lumbar myelopathy or radiculopathy on bedside testing. He has multilevel degenerative changes on his CT. Neurology follows for restless legs, not for back pain. Recommendations: Physiatry consult Consult Dr. Garcia Rehabilitation modalities Trial of tizanidine Lumbar MRI Thank you for letting me help with the patient's care.. TYLER HURD MD Jul 08, 2019 09:49
[2019-07-08] MEDS ORDERED: methylPREDNISolone ACETATE 40 MG/ML VIAL. IM ONE (10:00)
[2019-07-08] MEDS ORDERED: BUPIVACAINE MPF 0.25% 10 ML VIAL. IJ ONE (10:00)
[2019-07-08] MEDS: tiZANidine 4 MG TABLET. PO SCH ×3 (10:19→22:42)
[2019-07-08 11:00] VITALS: BP 116/71
--- NOTE | 2019-07-08 11:46 | PDOC1 ---
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 He states that he does have chronic back problems and disc problems but when it flares up usually Tramadol takes care of it. Left low back is sharp and nonradiating and states he can hardly walk. He states that he does have a neurosurgeon and was supposed to get a stimulator placed in his back but has not. Rates pain a /. Past Medical History Past Medical History Past Medical History Past Medical History: Cancer, Diabetes-Type II, High Cholesterol, Hypertension Past Surgical History: Coronary Bypass Surgery Additional Past Surgical Histo: carpal tunnel surgery left arm, ganglian cyst left wrist Alcohol Use: None Drug Use: None FHX OBESITY Past Medical History Cardiovascular: CAD, HTN, Hyperlipidemia Pulmonary: Other ( sleep apnea) CENTRAL NERVOUS SYSTEM: Other ( restless leg syndrome) GI: GERD Musculoskeletal: low back pain, Osteoarthritis Endocrine: Diabetes Dermatology: Other ( skin cancer removed from face) Past Surgical History Past Surgical History: CABG, Other (Oral, right carpal tunnel) Family History Family History: Cancer Social History Social History , retired, no alcohol or tobacco Cardiovascular: CAD, HTN, Hyperlipidemia Pulmonary: Other ( sleep apnea) CENTRAL NERVOUS SYSTEM: Other ( restless leg syndrome) GI: GERD Musculoskeletal: low back pain, Osteoarthritis Endocrine: Diabetes Dermatology: Other ( skin cancer removed from face) Past Surgical History Past Surgical History: CABG, Other (Oral, right carpal tunnel) Family History Family History: High Cholestrol, Hypertension Social History Smoke: No ALCOHOL: occassional Drugs: None Current Problem List Problem List Problems Medical Problems: (1) Intractable low back pain Status: Acute Current Medications Current Medications Current Medications Orphenadrine Citrate (Norflex) 60 mg 1X ONCE IM Last administered on 07/07/19at 16:16; Start 07/07/19 at 16:15; Stop 07/07/19 at 16:16; Status DC Fentanyl Citrate (Fentanyl 2ml Vial) 50 mcg 1X ONCE IVP Last administered on 07/07/19at 16:29; Start 07/07/19 at 16:15; Stop 07/07/19 at 16:16; Status DC Methylprednisolone Sodium Succinate (SOLU-Medrol 125MG VIAL) 125 mg 1X ONCE IV Last administered on 07/07/19at 17:36; Start 07/07/19 at 18:00; Stop 07/07/19 at 18:01; Status DC Morphine Sulfate (Morphine Sulfate) 4 mg 1X ONCE IV Last administered on 07/07/19at 18:22; Start 07/07/19 at 18:45; Stop 07/07/19 at 18:46; Status DC Ondansetron HCl (Zofran) 4 mg PRN Q8HRS PRN IV NAUSEA/VOMITING; Start 07/07/19 at 18:30; Stop 07/07/19 at 22:04; Status DC Morphine Sulfate (Morphine Sulfate) 2 mg PRN Q2HRS PRN IV PAIN; Start 07/07/19 at 18:30; Stop 07/07/19 at 18:56; Status DC Ketorolac Tromethamine (Toradol 30mg Vial) 30 mg 1X ONCE IVP Last administered on 07/07/19at 19:02; Start 07/07/19 at 19:30; Stop 07/07/19 at 19:31; Status DC Fentanyl Citrate (Fentanyl 2ml Vial) 50 mcg PRN Q2HR PRN IVP PAIN Last administered on 07/08/19at 09:18; Start 07/07/19 at 19:00 Ondansetron HCl (Zofran) 4 mg PRN Q4HRS PRN IV NAUSEA/VOMITING; Start 07/07/19 at 22:00 Potassium Chloride/Water 100 ml @ 100 mls/hr Q1H IV Last administered on 07/08/19at 00:50; Start 07/07/19 at 22:15; Stop 07/08/19 at 00:14; Status DC Potassium Chloride (Klor-Con) 40 meq 1X ONCE PO Last administered on 07/07/19at 23:25; Start 07/07/19 at 22:15; Stop 07/07/19 at 22:16; Status DC Enoxaparin Sodium (Lovenox 40mg Syringe) 40 mg Q24H SQ Last administered on 07/07/19at 22:00; Start 07/07/19 at 22:00 Insulin Human Lispro (HumaLOG) 0-7 UNITS TIDACHC SQ Last administered on 07/08/19at 08:22; Start 07/08/19 at 07:30 Dextrose (Dextrose 50%-Water Syringe) 12.5 gm PRN Q15MIN PRN IV SEE COMMENTS; Start 07/07/19 at 22:00 Acetaminophen (Tylenol) 650 mg PRN Q6HRS PRN PO MILD PAIN / TEMP > 100.3'F; Start 07/07/19 at 22:00 Amlodipine Besylate (Norvasc) 10 mg DAILY PO Last administered on 07/08/19at 09:17; Start 07/08/19 at 09:00 Aspirin (Aspirin Chewable) 81 mg DAILYWBKFT PO Last administered on 07/08/19at 08:21; Start 07/08/19 at 08:00 Ferrous Sulfate (Feosol) 325 mg DAILY PO Last administered on 07/08/19at 09:16; Start 07/08/19 at 09:00 Pramipexole Dihydrochloride (miraPEX) 1 mg HS PO ; Start 07/07/19 at 22:30; Stop 07/07/19 at 22:19; Status DC Trazodone HCl (Desyrel) 50 mg QHS PO Last administered on 07/07/19at 23:26; Start 07/07/19 at 22:30 Vitamin D (Vitamin D3) 4,000 unit DAILY PO Last administered on 07/08/19at 09:16; Start 07/08/19 at 09:00 Fluoxetine HCl (PROzac) 40 mg HS PO Last administered on 07/07/19at 23:25; Start 07/07/19 at 22:30 Gabapentin (Neurontin) 600 mg TID PO Last administered on 07/08/19at 09:17; Start 07/07/19 at 22:30 Losartan Potassium (Cozaar) 100 mg DAILY PO Last administered on 07/08/19at 09:17; Start 07/08/19 at 09:00 Metoprolol Succinate (Toprol Xl) 50 mg DAILY PO Last administered on 07/08/19at 09:17; Start 07/08/19 at 09:00 Fish Oil (Fish Oil) 1,000 mg BID PO Last administered on 07/08/19at 09:17; Start 07/07/19 at 22:30 Pantoprazole Sodium (Protonix) 40 mg DAILYAC PO Last administered on 07/08/19at 08:21; Start 07/08/19 at 07:30 Vitamin B Complex (Folbic Tablet) 1 tab BID PO Last administered on 07/08/19at 09:17; Start 07/07/19 at 22:30 Pramipexole Dihydrochloride (miraPEX) 1 mg HS PO Last administered on 07/07/19at 23:26; Start 07/07/19 at 22:30 Tizanidine HCl (Zanaflex) 4 mg Q8HRS PO Last administered on 07/08/19at 10:19; Start 07/08/19 at 09:30 Methylprednisolone Acetate (DEPO-Medrol 40MG VIAL) 40 mg 1X ONCE IM ; Start 07/08/19 at 10:00; Stop 07/08/19 at 10:01; Status DC Bupivacaine HCl (Sensorcaine-Mpf 0.25%) 10 ml 1X ONCE IJ ; Start 07/08/19 at 10:00; Stop 07/08/19 at 10:01; Status DC Active Scripts Active Reported Fluoxetine Hcl 40 Mg Capsule 1 Cap PO HS Vitamin D (Cholecalciferol (Vitamin D3)) 2,000 Unit Capsule 4,000 Unit PO DAILY Mirapex (Pramipexole Di-Hcl) 0.25 Mg Tablet 1 Mg PO HS Vitamin B Complex 1 Each Capsule 1 Each PO BID Requip (Ropinirole Hcl) 1 Mg Tablet 2 Tab PO QHS Protonix (Pantoprazole Sodium) 20 Mg Tablet.dr 40 Mg PO DAILY Aspirin 81 Mg Tab.chew 1 Tab PO DAILY Trazodone Hcl 50 Mg Tablet 1 Tab PO QHS Norvasc (Amlodipine Besylate) 5 Mg Tablet 10 Mg PO DAILY Iron Supplement (Ferrous Sulfate) 325 Mg Tablet 65 Mg PO DAILY Metformin Hcl 1,000 Mg Tablet 1,000 Mg PO BID Fish Oil + D3 Softgel ([place]-3S/Dha/Epa/Fish Oil/D3) 1 Each Capsule 1 Each PO BID Losartan Potassium 100 Mg Tablet 100 Mg PO DAILY Gabapentin 600 Mg Tablet 600 Mg PO TID Centrum Silver Ultra Men's Tab (Multivitamin W-Minerals/Lutein) 1 Each Tablet 1 Each PO Toprol Xl (Metoprolol Succinate) 50 Mg Tab.er.24h 50 Mg PO DAILY Allergies Allergies: Coded Allergies: amoxicillin (Verified Adverse Reaction, Intermediate, Nausea/Vomiting, GI upset, 10/24/13) ROS General: No: Chills, Night Sweats, Fatigue, Malaise, Appetite, Other PSYCHOLOGICAL ROS: No: Anxiety, Behavioral Disorder, Concentration difficultie, Decreased libido, Depression, Disorientation, Hallucinations, Hostility, Irritablity, Memory difficulties, Mood Swings, Obsessive thoughts, Physical abuse, Sexual abuse, Sleep disturbances, Suicidal ideation, Other Eyes: No Blurry vision, No Decreased vision, No Double vision, No Dry eyes, No Excessive tearing, No Eye Pain, No Itchy Eyes, No Loss of vision, No Photophobi a, No Scotomata, No Uses contacts, No Uses glasses, No Other HEENT: No: Heacaches, Visual Changes, Hearing change, Nasal congestion, Nasal discharge, Oral lesions, Sinus pain, Sore Throat, Epistaxis, Sneezing, Snoring, Tinnitus, Vertigo, Vocal changes, Other Hematological and Lymphatic: No: Bleeding Problems, Blood Clots, Blood Transfusions, Brusing, Night Sweats, Pallor, Swollen Lymph Nodes, Other Breast: No New/Changing Breast Lumps, No Nipple changes, No Nipple discharge, No Other Respiratory: No: Cough, Hemoptysis, Orthopnea, Pleuritic Pain, Shortness of breath, SOB with excertion, Sputum Changes, Stridor, Tachypnea, Wheezing, Other Cardiovascular: No Chest Pain, No Palpitations, No Orthopnea, No Paroxysmal Noc. Dyspnea, No Edema, No Lt Headedness, No Other Gastrointestinal: No Nausea, No Vomiting, No Abdominal Pain, No Diarrhea, No Constipation, No Melena, No Hematochezia, No Other Musculoskeletal: Yes Gait Disturbance, Yes Joint Stiffness, Yes Muscle Pain Neurological: Yes Gait Disturbance Skin: No Dry Skin, No Eczema, No Hair Changes, No Lumps, No Mole Changes, No Mottling, No Nail Changes, No Pruritus, No Rash, No Skin Lesion Changes, No Othe r, No Acne Physical Exam Physical Exam Constitutional: Well developed, well nourished, no acute distress, non-toxic appearance. [] HENT: Normocephalic, atraumatic, bilateral external ears normal, oropharynx moist, no oral exudates, nose normal. [] Eyes: PERRLA, EOMI, conjunctiva normal, no discharge. [] Neck: Normal range of motion, no tenderness, supple, no stridor. [] Cardiovascular:Heart rate regular rhythm, no murmur [] Lungs & Thorax: Bilateral breath sounds clear to auscultation [] Abdomen: Bowel sounds normal, soft, no tenderness, no masses, no pulsatile masses. [] Skin: Warm, dry, no erythema, no rash. [] Back: Left lower back tenderness, no CVA tenderness. [] Extremities: No tenderness, no cyanosis, no clubbing, ROM intact, no edema. [] Neurologic: Alert and oriented X 3, normal motor function, normal sensory function, no focal deficits noted. [] Psychologic: Affect normal, judgement normal, mood normal. [] General: Alert, Oriented X3, Cooperative HEENT: Atraumatic, PERRLA, EOMI, Mucous membr. moist/pink Lungs: Clear to auscultation, Normal air movement Heart: RRR Abdomen: Normal bowel sounds, Soft Rectal Exam: not examined PELVIC: Examination not indicated Extremities: No cyanosis Neuro: Normal speech, Cranial nerves 3-12 NL Psych/Mental Status: Mental status NL, Mood NL Vitals Vitals Vital Signs Date Time Temp Pulse Resp B/P (MAP) Pulse Ox O2 Delivery O2 Flow Rate FiO2 07/08/19 09:17 78 129/77 07/08/19 08:30 Room Air 07/08/19 07:00 92.8 18 93 92.8 Labs Labs Laboratory Tests Test 07/07/19 16:20 07/07/19 17:37 07/07/19 19:47 07/08/19 05:55 White Blood Count 8.9 x10^3/uL (4.0-11.0) Red Blood Count 4.78 x10^6/uL (4.30-5.70) Hemoglobin 14.3 g/dL (13.0-17.5) Hematocrit 41.9 % (39.0-53.0) Mean Corpuscular Volume 88 fL (79-100) Mean Corpuscular Hemoglobin 30 pg (25-35) Mean Corpuscular Hemoglobin Concent 34 g/dL (31-37) Red Cell Distribution Width 14.0 % (11.5-14.5) Platelet Count 315 x10^3/uL (140-400) Neutrophils (%) (Auto) 72 % (31-73) Lymphocytes (%) (Auto) 18 % (24-48) Monocytes (%) (Auto) 7 % (0-9) Eosinophils (%) (Auto) 3 % (0-3) Basophils (%) (Auto) 1 % (0-3) Neutrophils # (Auto) 6.4 x10^3/uL (1.8-7.7) Lymphocytes # (Auto) 1.6 x10^3/uL (1.0-4.8) Monocytes # (Auto) 0.6 x10^3/uL (0.0-1.1) Eosinophils # (Auto) 0.3 x10^3/uL (0.0-0.7) Basophils # (Auto) 0.0 x10^3/uL (0.0-0.2) Sodium Level 139 mmol/L (136-145) 137 mmol/L (136-145) Potassium Level 3.2 mmol/L (3.5-5.1) 4.4 mmol/L (3.5-5.1) Chloride Level 101 mmol/L (98-107) 100 mmol/L (98-107) Carbon Dioxide Level 27 mmol/L (21-32) 25 mmol/L (21-32) Anion Gap 11 (6-14) 12 (6-14) Blood Urea Nitrogen 13 mg/dL (8-26) 19 mg/dL (8-26) Creatinine 1.0 mg/dL (0.7-1.3) 1.1 mg/dL (0.7-1.3) Estimated GFR (Cockcroft-Gault) 74.3 66.6 BUN/Creatinine Ratio 13 (6-20) Glucose Level 164 mg/dL (70-99) 194 mg/dL (70-99) Calcium Level 8.3 mg/dL (8.5-10.1) 8.4 mg/dL (8.5-10.1) Magnesium Level 1.4 mg/dL (1.8-2.4) Total Bilirubin 0.6 mg/dL (0.2-1.0) Aspartate Amino Transf (AST/SGOT) 25 U/L (15-37) Alanine Aminotransferase (ALT/SGPT) 47 U/L (16-63) Alkaline Phosphatase 92 U/L (46-116) C-Reactive Protein, Quantitative 1.5 mg/L (0-3.3) Total Protein 7.4 g/dL (6.4-8.2) Albumin 3.7 g/dL (3.4-5.0) Albumin/Globulin Ratio 1.0 (1.0-1.7) Urine Collection Type Unknown Urine Color Yellow Urine Clarity Clear Urine pH 5.5 (<5.0-8.0) Urine Specific [place] 1.020 (1.000-1.030) Urine Protein Negative mg/dL (NEG-TRACE) Urine Glucose (UA) 500 mg/dL (NEG) Urine Ketones (Stick) Negative mg/dL (NEG) Urine Blood Negative (NEG) Urine Nitrite Negative (NEG) Urine Bilirubin Negative (NEG) Urine Urobilinogen Dipstick 0.2 mg/dL (0.2 mg/dL) Urine Leukocyte Esterase Negative (NEG) Urine RBC 0 /HPF (0-2) Urine WBC 0 /HPF (0-4) Urine Squamous Epithelial Cells Few /LPF Urine Bacteria 0 /HPF (0-FEW) Urine Mucus Marked /LPF Urine Sperm Present /HPF Glucose (Fingerstick) 148 mg/dL (70-99) Test 07/08/19 07:29 07/08/19 11:41 Glucose (Fingerstick) 166 mg/dL (70-99) 225 mg/dL (70-99) Laboratory Tests Test 07/07/19 16:20 07/07/19 17:37 07/07/19 19:47 07/08/19 05:55 White Blood Count 8.9 x10^3/uL (4.0-11.0) Red Blood Count 4.78 x10^6/uL (4.30-5.70) Hemoglobin 14.3 g/dL (13.0-17.5) Hematocrit 41.9 % (39.0-53.0) Mean Corpuscular Volume 88 fL (79-100) Mean Corpuscular Hemoglobin 30 pg (25-35) Mean Corpuscular Hemoglobin Concent 34 g/dL (31-37) Red Cell Distribution Width 14.0 % (11.5-14.5) Platelet Count 315 x10^3/uL (140-400) Neutrophils (%) (Auto) 72 % (31-73) Lymphocytes (%) (Auto) 18 % (24-48) Monocytes (%) (Auto) 7 % (0-9) Eosinophils (%) (Auto) 3 % (0-3) Basophils (%) (Auto) 1 % (0-3) Neutrophils # (Auto) 6.4 x10^3/uL (1.8-7.7) Lymphocytes # (Auto) 1.6 x10^3/uL (1.0-4.8) Monocytes # (Auto) 0.6 x10^3/uL (0.0-1.1) Eosinophils # (Auto) 0.3 x10^3/uL (0.0-0.7) Basophils # (Auto) 0.0 x10^3/uL (0.0-0.2) Sodium Level 139 mmol/L (136-145) 137 mmol/L (136-145) Potassium Level 3.2 mmol/L (3.5-5.1) 4.4 mmol/L (3.5-5.1) Chloride Level 101 mmol/L (98-107) 100 mmol/L (98-107) Carbon Dioxide Level 27 mmol/L (21-32) 25 mmol/L (21-32) Anion Gap 11 (6-14) 12 (6-14) Blood Urea Nitrogen 13 mg/dL (8-26) 19 mg/dL (8-26) Creatinine 1.0 mg/dL (0.7-1.3) 1.1 mg/dL (0.7-1.3) Estimated GFR (Cockcroft-Gault) 74.3 66.6 BUN/Creatinine Ratio 13 (6-20) Glucose Level 164 mg/dL (70-99) 194 mg/dL (70-99) Calcium Level 8.3 mg/dL (8.5-10.1) 8.4 mg/dL (8.5-10.1) Magnesium Level 1.4 mg/dL (1.8-2.4) Total Bilirubin 0.6 mg/dL (0.2-1.0) Aspartate Amino Transf (AST/SGOT) 25 U/L (15-37) Alanine Aminotransferase (ALT/SGPT) 47 U/L (16-63) Alkaline Phosphatase 92 U/L (46-116) C-Reactive Protein, Quantitative 1.5 mg/L (0-3.3) Total Protein 7.4 g/dL (6.4-8.2) Albumin 3.7 g/dL (3.4-5.0) Albumin/Globulin Ratio 1.0 (1.0-1.7) Urine Collection Type Unknown Urine Color Yellow Urine Clarity Clear Urine pH 5.5 (<5.0-8.0) Urine Specific [place] 1.020 (1.000-1.030) Urine Protein Negative mg/dL (NEG-TRACE) Urine Glucose (UA) 500 mg/dL (NEG) Urine Ketones (Stick) Negative mg/dL (NEG) Urine Blood Negative (NEG) Urine Nitrite Negative (NEG) Urine Bilirubin Negative (NEG) Urine Urobilinogen Dipstick 0.2 mg/dL (0.2 mg/dL) Urine Leukocyte Esterase Negative (NEG) Urine RBC 0 /HPF (0-2) Urine WBC 0 /HPF (0-4) Urine Squamous Epithelial Cells Few /LPF Urine Bacteria 0 /HPF (0-FEW) Urine Mucus Marked /LPF Urine Sperm Present /HPF Glucose (Fingerstick) 148 mg/dL (70-99) Test 07/08/19 07:29 07/08/19 11:41 Glucose (Fingerstick) 166 mg/dL (70-99) 225 mg/dL (70-99) Images Images THORACIC SPINE WO CONTRAST History:Reason: intractable back pain / Spl. Instructions: / History: Technique: Multiplanar, multi sequential noncontrast MR imaging was performed of the thoracic spine. Comparison: None Findings: Normal vertebral body height. No fracture. Normal alignment. No pathologic signal abnormality within the thoracic spinal cord. Partially imaged lower cervical spondylosis. Mild multilevel thoracic degenerative disc changes. No significant canal narrowing. No neuroforaminal narrowing. Impression: 1. No acute fracture or subluxation of the thoracic spine. 2. Mild multilevel thoracic spondylosis. Electronically signed by: Nhan Mehta DO (07/08/2019 3:13 PM) [id number] DICTATED and SIGNED BY: NHAN MEHTA DO DATE: 07/08/19 1513 EXAM: CT Lumbar Spine without IV contrast INDICATION: Reason: BACK PAIN / Spl. Instructions: / History: TECHNIQUE: Multi-detector row CT images were obtained through the lumbar spine without the use of IV contrast. Post-processing sagittal and coronal reconstructed images were obtained for interpretation. All CT scans performed at this facility utilize dose optimization techniques as appropriate to the exam, including the following: Automated exposure control and adjustment of the mA and/or KV according to patient size (this includes techniques or standardized protocols for targeted exams where dose is indication/reason for exam). COMPARISON: High-resolution chest CT of 01/21/2019 FINDINGS: The lowest fully formed disc is referred to as the L5-S1 level. ALIGNMENT: Alignment is within normal limits. OSSEOUS: No evidence of fracture or bone destruction. DISC SPACES: Varying degrees of disc space narrowing most conspicuous at L2-L3. FACET JOINTS: Unremarkable. SPINAL CANAL: Combination of disc and facet hypertrophic change likely results in moderate central canal stenosis at L2-L3 and mild central canal narrowing at L3-L4. Central disc protrusion at L4-L5 mildly flattening the ventral thecal sac NEUROFORAMINA: Unremarkable. SOFT TISSUES: Interlobular septal thickening and mild bronchiectasis in the bilateral lower lobes, suggestive of pulmonary fibrosis. Extensive arterial calcifications in the abdominal aorta and its image major branch vessels. IMPRESSION: No acute osseous abnormality in the lumbar spine with multilevel disc degenerative spondylosis as described. More detailed evaluation could be pursued with CT lumbar myelography or MRI if clinically warranted. Electronically signed by: Toan Huddleston MD (07/07/2019 5:14 PM) [facility] [place] DICTATED and SIGNED BY: TOAN HUDDLESTON MD DATE: 07/07/19 1714 VTE Prophylaxis Ordered VTE Prophylaxis Devices: Yes VTE Pharmacological Prophylaxi: Contraindicated Assessment/Plan Assessment/Plan Impression: Intractable low back pain moderate central canal stenosis at L2-L3 and mild central canal narrowing at L3-L4. Central disc protrusion at L4-L5 mildly flattening the ventral thecal sac gait instability Morbid obesity ADMITTED Trial of tizanidine Lumbar MRI neurology consult rehab consult D/W RN Justicifation of Admission Dx: Justifications for Admission: Justification of Admission Dx: Yes Comments: INTRACTABLE PAIN, UNABLE TO SAFELY AMBULATE MONICA TRUJILLO MD Jul 08, 2019 11:46
--- NOTE | 2019-07-08 12:30 | CONS ---
DATE OF CONSULTATION: 07/08/2019 LOCATION: He is in room 424. ATTENDING PHYSICIAN: Dr. Ramos. REASON FOR CONSULTATION: The patient was seen at the request of Dr. Ramos for rehab evaluation. HISTORY OF PRESENT ILLNESS: This is a 69-year-old male, right handed, with chronic lower back pain from degenerative disc disease and degenerative joint disease of lumbar vertebrae, being followed by Dr. Rocky Garcia and he was considered for spinal stimulator, but his insurance company did not approve it. The patient started having increasing back pain yesterday. The patient is having difficulty to get up and move secondary to his back pain. 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 The patient denies any numbness or tingling sensation in the extremities or any trouble with his bowel or bladder control. He denies any radiation of pain to the extremities. The patient had CT scan of lumbar spine done, which failed to reveal any acute abnormality. It revealed combination of disc and facet hypertrophic changes, likely resulting in moderate central canal stenosis at L2-L3 and mild central canal stenosis at L3-L4 and central disc protrusion at L4-L5, mildly flattening ventral thecal sac. The patient usually takes aspirin and uses a cane to walk. He had a back support brace, but does not use it all the time. The patient is retired. PHYSICAL EXAMINATION: Today revealed a middle-aged male. He is alert, oriented to time, place, person, and circumstance and follows commands appropriately, moves all 4 extremities voluntarily where he had 4+/5 grade muscle strength and deep tendon reflexes are 1 to 2+ and symmetrical. He had painful limited movements of his lumbar spine, tenderness to palpation over left lumbar paraspinal muscles with moderate degree of paraspinal muscle spasm. Straight leg raising test is negative bilaterally. He had painful range of motion of both hip joints. He is independent, rolling from side to side and he got up to a sitting portion and stood up with a walker, but having difficulty with back pain to try to walk. His skin is intact at this time. ASSESSMENT: 1. This is a middle-aged male with left lumbar paraspinal muscle strain, superimposed on degenerative disc disease and degenerative joint disease of lumbar vertebrae without any clinical evidence of ongoing lumbar radiculopathy. 2. Obesity. RECOMMENDATIONS: To try physical modalities, to proceed with a trigger point injection to get him up as tolerated. Hopefully, home with outpatient followup when medically stable. Dr. Ramos, I appreciate asking me to participate in the care of this interesting patient. I will be glad to see him for followup with you on as needed basis. JONATHAN ANSARI MD DR: MALLORY/kishor JOB#: [id number] / [id number] GRANT Aguirre DO
--- NOTE | 2019-07-08 13:13 | NUR ---
SW following. Discussed with RN. Pt from home with , room air, MRI scheduled and possible injection from Dr. White. RN advised no SW needs at this time. SW will continue to follow, should any discharge needs arise.
--- NOTE | 2019-07-08 14:41 | NUR ---
Pt refused injections per Dr. White. This RN nonadministered medications, refer to EMAR for details. Dr. White stated he would inject the pt tomorrow.
[2019-07-08 15:00] VITALS: BP 108/61
--- NOTE | 2019-07-08 15:15 | RAD ---
THORACIC SPINE WO CONTRAST History:Reason: intractable back pain / Spl. Instructions: / History: Technique: Multiplanar, multi sequential noncontrast MR imaging was performed of the thoracic spine. Comparison: None Findings: Normal vertebral body height. No fracture. Normal alignment. No pathologic signal abnormality within the thoracic spinal cord. Partially imaged lower cervical spondylosis. Mild multilevel thoracic degenerative disc changes. No significant canal narrowing. No neuroforaminal narrowing. Impression: 1. No acute fracture or subluxation of the thoracic spine. 2. Mild multilevel thoracic spondylosis. Electronically signed by: Nhan Higginbotham DO (07/08/2019 3:13 PM) [id number]
[2019-07-08 19:00] VITALS: BP 113/64
[2019-07-08] MEDS: traZODone 50 MG TABLET. PO SCH (21:15)
[2019-07-08] MEDS: FLUoxetine HCL 20 MG CAPSULE PO SCH (21:15)
[2019-07-08] MEDS: PRAMIPEXOLE 1 MG TABLET. PO SCH (21:15)
[2019-07-08] MEDS: ENOXAPARIN 40 MG/0.4 ML SYRINGE. SQ SCH (22:43)
[2019-07-08 23:00] VITALS: BP 100/66
[2019-07-09 03:00] VITALS: BP 112/70
[2019-07-09] MEDS: tiZANidine 4 MG TABLET. PO SCH ×3 (06:07→20:22)
[2019-07-09] MEDS: PANTOPRAZOLE 40 MG TABLET.DR. PO SCH (06:07)
[2019-07-09 07:00] VITALS: BP 125/59
[2019-07-09] MEDS: INSULIN LISPRO 300 UNITS/3 ML VIAL. SQ SCH ×4 (07:30→20:23)
[2019-07-09] MEDS: fentaNYL PF VIAL 100 MCG/2 ML VIAL IVP PRN (09:19)
[2019-07-09] MEDS: VITAMIN B12,B9,B6 COMPLEX 1 TABLET. PO SCH ×2 (09:19→20:21)
[2019-07-09] MEDS: CHOLECALCIFEROL (VITAMIN D3) 1,000 UNIT TABLET PO SCH (09:19)
[2019-07-09] MEDS: FERROUS SULFATE 325 MG TABLET. PO SCH (09:19)
[2019-07-09] MEDS: LOSARTAN POTASSIUM 50 MG TABLET. PO SCH (09:19)
[2019-07-09] MEDS: amLODIPine BESYLATE 5 MG TABLET PO SCH (09:20)
[2019-07-09] MEDS: OMEGA-3 FATTY ACIDS/FISH OIL 1,000 MG CAPSULE. PO SCH ×2 (09:20→20:22)
[2019-07-09] MEDS: METOPROLOL SUCC 24HR ER 50 MG TAB.ER.24H. PO SCH (09:20)
[2019-07-09] MEDS: ASPIRIN CHEWABLE 81 MG TABLET. PO SCH (09:20)
[2019-07-09] MEDS: GABAPENTIN 300 MG CAPSULE. PO SCH ×3 (09:20→20:22)
--- NOTE | 2019-07-09 09:33 | PDOC ---
PROGRESS NOTES Subjective Subjective He admits continued low back pain. Objective Objective Vital Signs Date Time Temp Pulse Resp B/P (MAP) Pulse Ox O2 Delivery O2 Flow Rate FiO2 07/09/19 09:20 62 125/59 07/09/19 09:19 Room Air 07/09/19 07:00 97.5 17 93 97.5 Intake and Output 07/09/19 07:00 Intake Total 660 ml Output Total 400 ml Balance 260 ml Intake Oral 660 ml Output Urine Total 400 ml # Voids 1 Physical Exam Physical Exam He is sitting in bedside chair,alert and sitting without lumbar support and mri scan revealed HNP L-L3 without any significant central spinal stenosis. He had tenderness to palpation over left lumbar paraspinal muscles with painfully limited lumbar spine ROM.SLR test is negative bilaterally and no change noted with his neurological examination. He is still hesitant to have injections. Assessment Assessment Problems Medical Problems: (1) Intractable low back pain Status: Acute Plan Plan of Residential wiht out patient follow up when medically stable as he did walk for 100' with physical therapy using roller walker. Comment Review of Relevant I have reviewed the following items yee (where applicable) has been applied. Labs Laboratory Tests Test 07/07/19 16:20 07/07/19 17:37 07/07/19 19:47 07/08/19 05:55 White Blood Count 8.9 x10^3/uL (4.0-11.0) Red Blood Count 4.78 x10^6/uL (4.30-5.70) Hemoglobin 14.3 g/dL (13.0-17.5) Hematocrit 41.9 % (39.0-53.0) Mean Corpuscular Volume 88 fL (79-100) Mean Corpuscular Hemoglobin 30 pg (25-35) Mean Corpuscular Hemoglobin Concent 34 g/dL (31-37) Red Cell Distribution Width 14.0 % (11.5-14.5) Platelet Count 315 x10^3/uL (140-400) Neutrophils (%) (Auto) 72 % (31-73) Lymphocytes (%) (Auto) 18 % (24-48) Monocytes (%) (Auto) 7 % (0-9) Eosinophils (%) (Auto) 3 % (0-3) Basophils (%) (Auto) 1 % (0-3) Neutrophils # (Auto) 6.4 x10^3/uL (1.8-7.7) Lymphocytes # (Auto) 1.6 x10^3/uL (1.0-4.8) Monocytes # (Auto) 0.6 x10^3/uL (0.0-1.1) Eosinophils # (Auto) 0.3 x10^3/uL (0.0-0.7) Basophils # (Auto) 0.0 x10^3/uL (0.0-0.2) Sodium Level 139 mmol/L (136-145) 137 mmol/L (136-145) Potassium Level 3.2 mmol/L (3.5-5.1) 4.4 mmol/L (3.5-5.1) Chloride Level 101 mmol/L (98-107) 100 mmol/L (98-107) Carbon Dioxide Level 27 mmol/L (21-32) 25 mmol/L (21-32) Anion Gap 11 (6-14) 12 (6-14) Blood Urea Nitrogen 13 mg/dL (8-26) 19 mg/dL (8-26) Creatinine 1.0 mg/dL (0.7-1.3) 1.1 mg/dL (0.7-1.3) Estimated GFR (Cockcroft-Gault) 74.3 66.6 BUN/Creatinine Ratio 13 (6-20) Glucose Level 164 mg/dL (70-99) 194 mg/dL (70-99) Calcium Level 8.3 mg/dL (8.5-10.1) 8.4 mg/dL (8.5-10.1) Magnesium Level 1.4 mg/dL (1.8-2.4) Total Bilirubin 0.6 mg/dL (0.2-1.0) Aspartate Amino Transf (AST/SGOT) 25 U/L (15-37) Alanine Aminotransferase (ALT/SGPT) 47 U/L (16-63) Alkaline Phosphatase 92 U/L (46-116) C-Reactive Protein, Quantitative 1.5 mg/L (0-3.3) Total Protein 7.4 g/dL (6.4-8.2) Albumin 3.7 g/dL (3.4-5.0) Albumin/Globulin Ratio 1.0 (1.0-1.7) Urine Collection Type Unknown Urine Color Yellow Urine Clarity Clear Urine pH 5.5 (<5.0-8.0) Urine Specific [place] 1.020 (1.000-1.030) Urine Protein Negative mg/dL (NEG-TRACE) Urine Glucose (UA) 500 mg/dL (NEG) Urine Ketones (Stick) Negative mg/dL (NEG) Urine Blood Negative (NEG) Urine Nitrite Negative (NEG) Urine Bilirubin Negative (NEG) Urine Urobilinogen Dipstick 0.2 mg/dL (0.2 mg/dL) Urine Leukocyte Esterase Negative (NEG) Urine RBC 0 /HPF (0-2) Urine WBC 0 /HPF (0-4) Urine Squamous Epithelial Cells Few /LPF Urine Bacteria 0 /HPF (0-FEW) Urine Mucus Marked /LPF Urine Sperm Present /HPF Glucose (Fingerstick) 148 mg/dL (70-99) Test 07/08/19 07:29 07/08/19 11:41 07/08/19 16:14 07/08/19 21:15 Glucose (Fingerstick) 166 mg/dL (70-99) 225 mg/dL (70-99) 152 mg/dL (70-99) 185 mg/dL (70-99) Test 07/09/19 07:35 Glucose (Fingerstick) 126 mg/dL (70-99) Laboratory Tests Test 07/08/19 11:41 07/08/19 16:14 07/08/19 21:15 07/09/19 07:35 Glucose (Fingerstick) 225 mg/dL (70-99) 152 mg/dL (70-99) 185 mg/dL (70-99) 126 mg/dL (70-99) Medications Current Medications Orphenadrine Citrate (Norflex) 60 mg 1X ONCE IM Last administered on 07/07/19at 16:16; Start 07/07/19 at 16:15; Stop 07/07/19 at 16:16; Status DC Fentanyl Citrate (Fentanyl 2ml Vial) 50 mcg 1X ONCE IVP Last administered on 07/07/19at 16:29; Start 07/07/19 at 16:15; Stop 07/07/19 at 16:16; Status DC Methylprednisolone Sodium Succinate (SOLU-Medrol 125MG VIAL) 125 mg 1X ONCE IV Last administered on 07/07/19at 17:36; Start 07/07/19 at 18:00; Stop 07/07/19 at 18:01; Status DC Morphine Sulfate (Morphine Sulfate) 4 mg 1X ONCE IV Last administered on 07/07/19at 18:22; Start 07/07/19 at 18:45; Stop 07/07/19 at 18:46; Status DC Ondansetron HCl (Zofran) 4 mg PRN Q8HRS PRN IV NAUSEA/VOMITING; Start 07/07/19 at 18:30; Stop 07/07/19 at 22:04; Status DC Morphine Sulfate (Morphine Sulfate) 2 mg PRN Q2HRS PRN IV PAIN; Start 07/07/19 at 18:30; Stop 07/07/19 at 18:56; Status DC Ketorolac Tromethamine (Toradol 30mg Vial) 30 mg 1X ONCE IVP Last administered on 07/07/19at 19:02; Start 07/07/19 at 19:30; Stop 07/07/19 at 19:31; Status DC Fentanyl Citrate (Fentanyl 2ml Vial) 50 mcg PRN Q2HR PRN IVP PAIN Last administered on 07/09/19at 09:19; Start 07/07/19 at 19:00 Ondansetron HCl (Zofran) 4 mg PRN Q4HRS PRN IV NAUSEA/VOMITING; Start 07/07/19 at 22:00 Potassium Chloride/Water 100 ml @ 100 mls/hr Q1H IV Last administered on 07/08/19at 00:50; Start 07/07/19 at 22:15; Stop 07/08/19 at 00:14; Status DC Potassium Chloride (Klor-Con) 40 meq 1X ONCE PO Last administered on 07/07/19at 23:25; Start 07/07/19 at 22:15; Stop 07/07/19 at 22:16; Status DC Enoxaparin Sodium (Lovenox 40mg Syringe) 40 mg Q24H SQ Last administered on 07/08/19at 22:43; Start 07/07/19 at 22:00 Insulin Human Lispro (HumaLOG) 0-7 UNITS TIDACHC SQ Last administered on 07/08/19at 17:03; Start 07/08/19 at 07:30 Dextrose (Dextrose 50%-Water Syringe) 12.5 gm PRN Q15MIN PRN IV SEE COMMENTS; Start 07/07/19 at 22:00 Acetaminophen (Tylenol) 650 mg PRN Q6HRS PRN PO MILD PAIN / TEMP > 100.3'F; Start 07/07/19 at 22:00 Amlodipine Besylate (Norvasc) 10 mg DAILY PO Last administered on 07/09/19 09:20; Start 07/08/19 at 09:00 Aspirin (Aspirin Chewable) 81 mg DAILYWBKFT PO Last administered on 07/09/19at 09:20; Start 07/08/19 at 08:00 Ferrous Sulfate (Feosol) 325 mg DAILY PO Last administered on 07/09/19at 09:19; Start 07/08/19 at 09:00 Pramipexole Dihydrochloride (miraPEX) 1 mg HS PO ; Start 07/07/19 at 22:30; Stop 07/07/19 at 22:19; Status DC Trazodone HCl (Desyrel) 50 mg QHS PO Last administered on 07/08/19at 21:15; Start 07/07/19 at 22:30 Vitamin D (Vitamin D3) 4,000 unit DAILY PO Last administered on 07/09/19 09:19; Start 07/08/19 at 09:00 Fluoxetine HCl (PROzac) 40 mg HS PO Last administered on 07/08/19at 21:15; Start 07/07/19 at 22:30 Gabapentin (Neurontin) 600 mg TID PO Last administered on 07/09/19at 09:20; Start 07/07/19 at 22:30 Losartan Potassium (Cozaar) 100 mg DAILY PO Last administered on 07/09/19at 09:19; Start 07/08/19 at 09:00 Metoprolol Succinate (Toprol Xl) 50 mg DAILY PO Last administered on 07/09/19 09:20; Start 07/08/19 at 09:00 Fish Oil (Fish Oil) 1,000 mg BID PO Last administered on 07/09/19 09:20; Start 07/07/19 at 22:30 Pantoprazole Sodium (Protonix) 40 mg DAILYAC PO Last administered on 07/09/19 06:07; Start 07/08/19 at 07:30 Vitamin B Complex (Folbic Tablet) 1 tab BID PO Last administered on 6/2/20at 09:19; Start 07/07/19 at 22:30 Pramipexole Dihydrochloride (miraPEX) 1 mg HS PO Last administered on 07/08/19at 21:15; Start 07/07/19 at 22:30 Tizanidine HCl (Zanaflex) 4 mg Q8HRS PO Last administered on 07/09/19at 06:07; Start 07/08/19 at 09:30 Methylprednisolone Acetate (DEPO-Medrol 40MG VIAL) 40 mg 1X ONCE IM ; Start 07/08/19 at 10:00; Stop 07/08/19 at 10:01; Status DC Bupivacaine HCl (Sensorcaine-Mpf 0.25%) 10 ml 1X ONCE IJ ; Start 07/08/19 at 10:00; Stop 07/08/19 at 10:01; Status DC Active Scripts Active Reported Fluoxetine Hcl 40 Mg Capsule 1 Cap PO HS Vitamin D (Cholecalciferol (Vitamin D3)) 2,000 Unit Capsule 4,000 Unit PO DAILY Mirapex (Pramipexole Di-Hcl) 0.25 Mg Tablet 1 Mg PO HS Vitamin B Complex 1 Each Capsule 1 Each PO BID Requip (Ropinirole Hcl) 1 Mg Tablet 2 Tab PO QHS Protonix (Pantoprazole Sodium) 20 Mg Tablet.dr 40 Mg PO DAILY Aspirin 81 Mg Tab.chew 1 Tab PO DAILY Trazodone Hcl 50 Mg Tablet 1 Tab PO QHS Norvasc (Amlodipine Besylate) 5 Mg Tablet 10 Mg PO DAILY Iron Supplement (Ferrous Sulfate) 325 Mg Tablet 65 Mg PO DAILY Metformin Hcl 1,000 Mg Tablet 1,000 Mg PO BID Fish Oil + D3 Softgel ([place]-3S/Dha/Epa/Fish Oil/D3) 1 Each Capsule 1 Each PO BID Losartan Potassium 100 Mg Tablet 100 Mg PO DAILY Gabapentin 600 Mg Tablet 600 Mg PO TID Centrum Silver Ultra Men's Tab (Multivitamin W-Minerals/Lutein) 1 Each Tablet 1 Each PO Toprol Xl (Metoprolol Succinate) 50 Mg Tab.er.24h 50 Mg PO DAILY Vitals/I & O Vital Sign - Last 24 Hours 07/08/19 07/08/19 07/08/19 07/08/19 11:00 15:00 19:00 20:00 Temp 98.4 97.7 97.6 98.4 97.7 97.6 Pulse 77 71 73 Resp 18 18 16 B/P (MAP) 116/71 (86) 108/61 (77) 113/64 (80) Pulse Ox 94 95 93 O2 Delivery Room Air Room Air Room Air 07/08/19 07/09/19 07/09/19 07/09/19 23:00 03:00 07:00 09:19 Temp 97.5 98.1 97.5 97.5 98.1 97.5 Pulse 75 70 62 Resp 16 18 17 B/P (MAP) 100/66 (77) 112/70 (84) 125/59 (81) Pulse Ox 92 93 93 O2 Delivery Room Air Room Air 07/09/19 07/09/19 07/09/19 09:19 09:20 09:20 Pulse 62 62 62 B/P (MAP) 125/59 125/59 125/59 Intake and Output 07/08/19 07/08/19 07/09/19 15:00 23:00 07:00 Intake Total 450 ml 210 ml Output Total 400 ml Balance 450 ml 210 ml -400 ml JONATHAN ANSARI MD Jul 09, 2019 09:33
--- NOTE | 2019-07-09 09:37 | RAD ---
MRI lumbar spine without contrast HISTORY: Back pain. FINDINGS: Lumbar vertebral body height and alignment intact. There is mild discogenic bony edema posteriorly at L2-L3 from disc degeneration. Conus terminates at the L1 lumbar vertebral level. Cauda equina are unremarkable. Paraspinal tissues are unremarkable. Diffuse degenerative disc desiccation throughout the lumbar spine is present. Disc disease is described in detail below. L1-L2: No sizable disc bulge or herniation. No spinal canal or neural foraminal stenosis. L2-L3: Moderate posterior disc height loss, mild left facet hypertrophy, extensive posterior disc annulus tearing, mild-moderate disc bulge, with superimposed left foraminal and lateral broad-based disc protrusion contributing to mild narrowing left lateral recess deforming the dural sac, and moderate-severe left neural foraminal stenosis with partial effacement of the perineural fat. There is a right lateral broad-based shallow disc protrusion contributing to mild right neural foraminal stenosis. Mild spinal canal stenosis dural sac diameter 10 mm relative to the normal diameter of 12 mm at the L2 pedicle level. L3-L4: Mild disc bulge and facet hypertrophy. Mild left moderate neural foraminal stenoses. Minimal narrowing lateral recesses. No spinal canal stenosis. L4-L5: Mild posterior disc height loss, mild-moderate disc bulge, facet hypertrophy, and buckling of the dorsal dural sac from prominent dorsal epidural fat. There is [id number] spinal canal stenosis dural sac diameter 8 mm relative to the normal diameter of 11 mm at the L4 pedicle level. Moderate neural foraminal stenoses. L5-S1: Posterior disc height loss, mild/moderate disc bulge, mild lateral vertebral endplate spurring, and facet hypertrophy and mild spurring. Moderate left neural foraminal stenosis. Mild right neural foraminal stenosis. No spinal canal stenosis. IMPRESSION: Lumbar disc disease and facet arthrosis. At L2-L3 there is a left foraminal and lateral broad-based disc protrusion contributing to mild spinal canal stenosis and moderate-severe left neural foraminal stenosis. At L4-L5 there is a disc bulge combined with facet arthrosis and dorsal epidural fat hypertrophy contributing to moderate spinal canal stenosis and neural foraminal stenoses. There are multilevel neural foraminal stenoses throughout the lumbar spine. See discussion above. Electronically signed by: Eugene Rubio MD (07/09/2019 9:34 AM) [id number]
--- NOTE | 2019-07-09 10:23 | NUR ---
SW following. Discussed with RN, pt from home, refusing/ hesitant to have injections from Dr. White. Dr. White advised discharge home and follow up in office outpatient. RN advised no SW needs at this time. SW will continue to follow should any discharge needs arise.
[2019-07-09 11:00] VITALS: BP 114/59
--- NOTE | 2019-07-09 11:20 | PDOC ---
PROGRESS NOTES History of Present Illness History of Present Illness VTE Prophylaxis Ordered VTE Prophylaxis Devices: Yes VTE Pharmacological Prophylaxi: Contraindicated Assessment/Plan Assessment/Plan Impression: Intractable low back pain, pain remains uncontrolled Lumbar disc disease and facet arthrosis. At L2-L3 there is a left foraminal and lateral broad-based disc protrusion contributing to mild spinal canal stenosis and moderate-severe left neural foraminal stenosis. At L4-L5 there is a disc bulge combined with facet arthrosis and dorsal epidural fat hypertrophy contributing to moderate spinal canal stenosis and neural foraminal stenoses. moderate central canal stenosis at L2-L3 and mild central canal narrowing at L3-L4. Central disc protrusion at L4-L5 mildly flattening the ventral thecal sac gait instability Morbid obesity ADMITTED Trial of tizanidine Lumbar MRI neurology consult rehab consult consult dr davila, pain mgt D/W RN Treatment Plan * Therapeutic Exercise * Gait Training Frequency of Treatment Expected * 7 visits/week Duration of Treatment Expected * 2 weeks Discharge Recommendations * Home with outpatient Justicifation of Admission Dx: Justicifation of Admission Dx: Justifications for Admission: Justification of Admission Dx: Yes Comments: INTRACTABLE PAIN, UNABLE TO SAFELY AMBULATE Vitals Vitals Vital Signs Date Time Temp Pulse Resp B/P (MAP) Pulse Ox O2 Delivery O2 Flow Rate FiO2 07/09/19 10:53 Room Air 07/09/19 09:20 62 125/59 07/09/19 07:00 97.5 17 93 97.5 Physical Exam General: Alert, Oriented X3, Cooperative, moderate distress Heart: Regular rate Lungs: Clear Abdomen: Normal bowel sounds, Soft Extremities: No clubbing, No cyanosis Labs LABS REASON: back pain PROCEDURE: LUMBAR SPINE WO CONTRAST MRI lumbar spine without contrast HISTORY: Back pain. FINDINGS: Lumbar vertebral body height and alignment intact. There is mild discogenic bony edema posteriorly at L2-L3 from disc degeneration. Conus terminates at the L1 lumbar vertebral level. Cauda equina are unremarkable. Paraspinal tissues are unremarkable. Diffuse degenerative disc desiccation throughout the lumbar spine is present. Disc disease is described in detail below. L1-L2: No sizable disc bulge or herniation. No spinal canal or neural foraminal stenosis. L2-L3: Moderate posterior disc height loss, mild left facet hypertrophy, extensive posterior disc annulus tearing, mild-moderate disc bulge, with superimposed left foraminal and lateral broad-based disc protrusion contributing to mild narrowing left lateral recess deforming the dural sac, and moderate-severe left neural foraminal stenosis with partial effacement of the perineural fat. There is a right lateral broad-based shallow disc protrusion contributing to mild right neural foraminal stenosis. Mild spinal canal stenosis dural sac diameter 10 mm relative to the normal diameter of 12 mm at the L2 pedicle level. L3-L4: Mild disc bulge and facet hypertrophy. Mild left moderate neural foraminal stenoses. Minimal narrowing lateral recesses. No spinal canal stenosis. L4-L5: Mild posterior disc height loss, mild-moderate disc bulge, facet hypertrophy, and buckling of the dorsal dural sac from prominent dorsal epidural fat. There is [id number] spinal canal stenosis dural sac diameter 8 mm relative to the normal diameter of 11 mm at the L4 pedicle level. Moderate neural foraminal stenoses. L5-S1: Posterior disc height loss, mild/moderate disc bulge, mild lateral vertebral endplate spurring, and facet hypertrophy and mild spurring. Moderate left neural foraminal stenosis. Mild right neural foraminal stenosis. No spinal canal stenosis. IMPRESSION: Lumbar disc disease and facet arthrosis. At L2-L3 there is a left foraminal and lateral broad-based disc protrusion contributing to mild spinal canal stenosis and moderate-severe left neural foraminal stenosis. At L4-L5 there is a disc bulge combined with facet arthrosis and dorsal epidural fat hypertrophy contributing to moderate spinal canal stenosis and neural foraminal stenoses. There are multilevel neural foraminal stenoses throughout the lumbar spine. See discussion above. Electronically signed by: Eugene Harris MD (07/09/2019 9:34 AM) [id number] DICTATED and SIGNED BY: EUGENE HARRIS MD DATE: 07/09/19 0934 Laboratory Tests Test 07/08/19 11:41 07/08/19 16:14 07/08/19 21:15 07/09/19 07:35 Glucose (Fingerstick) 225 mg/dL (70-99) 152 mg/dL (70-99) 185 mg/dL (70-99) 126 mg/dL (70-99) Assessment and Plan Assessmemt and Plan Problems Medical Problems: (1) Intractable low back pain Status: Acute * Independent Transfer Type * Stand-Step Transfer Assistive Device * Roller Walker Ambulation Assistance Required * Independent Ambulation Assistive Device * Roller Walker Ambulation Distance * 100 Ft Ambulation Comments * no loss of balance no deviation from straight path. Pt states feels steady with walker and can tolerate with abdominal binder. Rehab Potential to Achieve Goals * Excellent Learning Preferences * One-on-One Instruction Problem List (body system elements) * Impaired fnctnl mobility * Pain Clinical Presentation * Unstable Evaluation Complexity Level * Low Complexity Pt/caregiver agrees with plan of care/goals * Yes Patient condition at conclusion of therapy * Pt in chair * Call light in reach * Phone in reach * PtIn no apparent distress * Pt denies further needs Goal 3 - Ambulation Assistance Required * Independent Goal 3 - Ambulation Distance * 250' Goal 4 - Stairs Assistance Required * Independent Goal 4 - Number of Stairs * 2-4 Goal 4 - Device on Stairs * Rail on Right Treatment Plan * Therapeutic Exercise * Gait Training Frequency of Treatment Expected * 7 visits/week Duration of Treatment Expected * 2 weeks Discharge Recommendations * Home with outpatient Comment Review of Relevant I have reviewed the following items yee (where applicable) has been applied. Labs Laboratory Tests Test 07/07/19 16:20 07/07/19 17:37 07/07/19 19:47 07/08/19 05:55 White Blood Count 8.9 x10^3/uL (4.0-11.0) Red Blood Count 4.78 x10^6/uL (4.30-5.70) Hemoglobin 14.3 g/dL (13.0-17.5) Hematocrit 41.9 % (39.0-53.0) Mean Corpuscular Volume 88 fL (79-100) Mean Corpuscular Hemoglobin 30 pg (25-35) Mean Corpuscular Hemoglobin Concent 34 g/dL (31-37) Red Cell Distribution Width 14.0 % (11.5-14.5) Platelet Count 315 x10^3/uL (140-400) Neutrophils (%) (Auto) 72 % (31-73) Lymphocytes (%) (Auto) 18 % (24-48) Monocytes (%) (Auto) 7 % (0-9) Eosinophils (%) (Auto) 3 % (0-3) Basophils (%) (Auto) 1 % (0-3) Neutrophils # (Auto) 6.4 x10^3/uL (1.8-7.7) Lymphocytes # (Auto) 1.6 x10^3/uL (1.0-4.8) Monocytes # (Auto) 0.6 x10^3/uL (0.0-1.1) Eosinophils # (Auto) 0.3 x10^3/uL (0.0-0.7) Basophils # (Auto) 0.0 x10^3/uL (0.0-0.2) Sodium Level 139 mmol/L (136-145) 137 mmol/L (136-145) Potassium Level 3.2 mmol/L (3.5-5.1) 4.4 mmol/L (3.5-5.1) Chloride Level 101 mmol/L (98-107) 100 mmol/L (98-107) Carbon Dioxide Level 27 mmol/L (21-32) 25 mmol/L (21-32) Anion Gap 11 (6-14) 12 (6-14) Blood Urea Nitrogen 13 mg/dL (8-26) 19 mg/dL (8-26) Creatinine 1.0 mg/dL (0.7-1.3) 1.1 mg/dL (0.7-1.3) Estimated GFR (Cockcroft-Gault) 74.3 66.6 BUN/Creatinine Ratio 13 (6-20) Glucose Level 164 mg/dL (70-99) 194 mg/dL (70-99) Calcium Level 8.3 mg/dL (8.5-10.1) 8.4 mg/dL (8.5-10.1) Magnesium Level 1.4 mg/dL (1.8-2.4) Total Bilirubin 0.6 mg/dL (0.2-1.0) Aspartate Amino Transf (AST/SGOT) 25 U/L (15-37) Alanine Aminotransferase (ALT/SGPT) 47 U/L (16-63) Alkaline Phosphatase 92 U/L (46-116) C-Reactive Protein, Quantitative 1.5 mg/L (0-3.3) Total Protein 7.4 g/dL (6.4-8.2) Albumin 3.7 g/dL (3.4-5.0) Albumin/Globulin Ratio 1.0 (1.0-1.7) Urine Collection Type Unknown Urine Color Yellow Urine Clarity Clear Urine pH 5.5 (<5.0-8.0) Urine Specific [place] 1.020 (1.000-1.030) Urine Protein Negative mg/dL (NEG-TRACE) Urine Glucose (UA) 500 mg/dL (NEG) Urine Ketones (Stick) Negative mg/dL (NEG) Urine Blood Negative (NEG) Urine Nitrite Negative (NEG) Urine Bilirubin Negative (NEG) Urine Urobilinogen Dipstick 0.2 mg/dL (0.2 mg/dL) Urine Leukocyte Esterase Negative (NEG) Urine RBC 0 /HPF (0-2) Urine WBC 0 /HPF (0-4) Urine Squamous Epithelial Cells Few /LPF Urine Bacteria 0 /HPF (0-FEW) Urine Mucus Marked /LPF Urine Sperm Present /HPF Glucose (Fingerstick) 148 mg/dL (70-99) Test 07/08/19 07:29 07/08/19 11:41 07/08/19 16:14 07/08/19 21:15 Glucose (Fingerstick) 166 mg/dL (70-99) 225 mg/dL (70-99) 152 mg/dL (70-99) 185 mg/dL (70-99) Test 07/09/19 07:35 Glucose (Fingerstick) 126 mg/dL (70-99) Laboratory Tests Test 07/08/19 11:41 07/08/19 16:14 07/08/19 21:15 07/09/19 07:35 Glucose (Fingerstick) 225 mg/dL (70-99) 152 mg/dL (70-99) 185 mg/dL (70-99) 126 mg/dL (70-99) Medications Current Medications Orphenadrine Citrate (Norflex) 60 mg 1X ONCE IM Last administered on 07/07/19at 16:16; Start 07/07/19 at 16:15; Stop 07/07/19 at 16:16; Status DC Fentanyl Citrate (Fentanyl 2ml Vial) 50 mcg 1X ONCE IVP Last administered on 07/07/19at 16:29; Start 07/07/19 at 16:15; Stop 07/07/19 at 16:16; Status DC Methylprednisolone Sodium Succinate (SOLU-Medrol 125MG VIAL) 125 mg 1X ONCE IV Last administered on 07/07/19at 17:36; Start 07/07/19 at 18:00; Stop 07/07/19 at 18:01; Status DC Morphine Sulfate (Morphine Sulfate) 4 mg 1X ONCE IV Last administered on 07/07/19at 18:22; Start 07/07/19 at 18:45; Stop 07/07/19 at 18:46; Status DC Ondansetron HCl (Zofran) 4 mg PRN Q8HRS PRN IV NAUSEA/VOMITING; Start 07/07/19 at 18:30; Stop 07/07/19 at 22:04; Status DC Morphine Sulfate (Morphine Sulfate) 2 mg PRN Q2HRS PRN IV PAIN; Start 07/07/19 at 18:30; Stop 07/07/19 at 18:56; Status DC Ketorolac Tromethamine (Toradol 30mg Vial) 30 mg 1X ONCE IVP Last administered on 07/07/19at 19:02; Start 07/07/19 at 19:30; Stop 07/07/19 at 19:31; Status DC Fentanyl Citrate (Fentanyl 2ml Vial) 50 mcg PRN Q2HR PRN IVP PAIN Last administered on 07/09/19at 09:19; Start 07/07/19 at 19:00 Ondansetron HCl (Zofran) 4 mg PRN Q4HRS PRN IV NAUSEA/VOMITING; Start 07/07/19 at 22:00 Potassium Chloride/Water 100 ml @ 100 mls/hr Q1H IV Last administered on 07/08/19at 00:50; Start 07/07/19 at 22:15; Stop 07/08/19 at 00:14; Status DC Potassium Chloride (Klor-Con) 40 meq 1X ONCE PO Last administered on 07/07/19at 23:25; Start 07/07/19 at 22:15; Stop 07/07/19 at 22:16; Status DC Enoxaparin Sodium (Lovenox 40mg Syringe) 40 mg Q24H SQ Last administered on 07/08/19at 22:43; Start 07/07/19 at 22:00 Insulin Human Lispro (HumaLOG) 0-7 UNITS TIDACHC SQ Last administered on 07/08/19at 17:03; Start 07/08/19 at 07:30 Dextrose (Dextrose 50%-Water Syringe) 12.5 gm PRN Q15MIN PRN IV SEE COMMENTS; Start 07/07/19 at 22:00 Acetaminophen (Tylenol) 650 mg PRN Q6HRS PRN PO MILD PAIN / TEMP > 100.3'F; Start 07/07/19 at 22:00 Amlodipine Besylate (Norvasc) 10 mg DAILY PO Last administered on 07/09/19at 09:20; Start 07/08/19 at 09:00 Aspirin (Aspirin Chewable) 81 mg DAILYWBKFT PO Last administered on 07/09/19at 09:20; Start 07/08/19 at 08:00 Ferrous Sulfate (Feosol) 325 mg DAILY PO Last administered on 07/09/19at 09:19; Start 07/08/19 at 09:00 Pramipexole Dihydrochloride (miraPEX) 1 mg HS PO ; Start 07/07/19 at 22:30; Stop 07/07/19 at 22:19; Status DC Trazodone HCl (Desyrel) 50 mg QHS PO Last administered on 07/08/19at 21:15; Start 07/07/19 at 22:30 Vitamin D (Vitamin D3) 4,000 unit DAILY PO Last administered on 07/09/19at 09:19; Start 07/08/19 at 09:00 Fluoxetine HCl (PROzac) 40 mg HS PO Last administered on 07/08/19at 21:15; Start 07/07/19 at 22:30 Gabapentin (Neurontin) 600 mg TID PO Last administered on 07/09/19at 09:20; Start 07/07/19 at 22:30 Losartan Potassium (Cozaar) 100 mg DAILY PO Last administered on 07/09/19at 09:19; Start 07/08/19 at 09:00 Metoprolol Succinate (Toprol Xl) 50 mg DAILY PO Last administered on 07/09/19at 09:20; Start 07/08/19 at 09:00 Fish Oil (Fish Oil) 1,000 mg BID PO Last administered on 07/09/19 09:20; Start 07/07/19 at 22:30 Pantoprazole Sodium (Protonix) 40 mg DAILYAC PO Last administered on 07/09/19at 06:07; Start 07/08/19 at 07:30 Vitamin B Complex (Folbic Tablet) 1 tab BID PO Last administered on 07/09/19 09:19; Start 07/07/19 at 22:30 Pramipexole Dihydrochloride (miraPEX) 1 mg HS PO Last administered on 07/08/19at 21:15; Start 07/07/19 at 22:30 Tizanidine HCl (Zanaflex) 4 mg Q8HRS PO Last administered on 07/09/19at 06:07; Start 07/08/19 at 09:30 Methylprednisolone Acetate (DEPO-Medrol 40MG VIAL) 40 mg 1X ONCE IM ; Start 07/08/19 at 10:00; Stop 07/08/19 at 10:01; Status DC Bupivacaine HCl (Sensorcaine-Mpf 0.25%) 10 ml 1X ONCE IJ ; Start 07/08/19 at 10:00; Stop 07/08/19 at 10:01; Status DC Active Scripts Active Reported Fluoxetine Hcl 40 Mg Capsule 1 Cap PO HS Vitamin D (Cholecalciferol (Vitamin D3)) 2,000 Unit Capsule 4,000 Unit PO DAILY Mirapex (Pramipexole Di-Hcl) 0.25 Mg Tablet 1 Mg PO HS Vitamin B Complex 1 Each Capsule 1 Each PO BID Requip (Ropinirole Hcl) 1 Mg Tablet 2 Tab PO QHS Protonix (Pantoprazole Sodium) 20 Mg Tablet.dr 40 Mg PO DAILY Aspirin 81 Mg Tab.chew 1 Tab PO DAILY Trazodone Hcl 50 Mg Tablet 1 Tab PO QHS Norvasc (Amlodipine Besylate) 5 Mg Tablet 10 Mg PO DAILY Iron Supplement (Ferrous Sulfate) 325 Mg Tablet 65 Mg PO DAILY Metformin Hcl 1,000 Mg Tablet 1,000 Mg PO BID Fish Oil + D3 Softgel ([place]-3S/Dha/Epa/Fish Oil/D3) 1 Each Capsule 1 Each PO BID Losartan Potassium 100 Mg Tablet 100 Mg PO DAILY Gabapentin 600 Mg Tablet 600 Mg PO TID Centrum Silver Ultra Men's Tab (Multivitamin W-Minerals/Lutein) 1 Each Tablet 1 Each PO Toprol Xl (Metoprolol Succinate) 50 Mg Tab.er.24h 50 Mg PO DAILY Vitals/I & O Vital Sign - Last 24 Hours 07/08/19 07/08/19 07/08/19 07/08/19 15:00 19:00 20:00 23:00 Temp 97.7 97.6 97.5 97.7 97.6 97.5 Pulse 71 73 75 Resp 18 16 16 B/P (MAP) 108/61 (77) 113/64 (80) 100/66 (77) Pulse Ox 95 93 92 O2 Delivery Room Air Room Air 07/09/19 07/09/19 07/09/19 07/09/19 03:00 07:00 08:30 09:19 Temp 98.1 97.5 98.1 97.5 Pulse 70 62 Resp 18 17 B/P (MAP) 112/70 (84) 125/59 (81) Pulse Ox 93 93 O2 Delivery Room Air Room Air Room Air 07/09/19 07/09/19 07/09/19 07/09/19 09:19 09:20 09:20 10:53 Pulse 62 62 62 B/P (MAP) 125/59 125/59 125/59 O2 Delivery Room Air Intake and Output 07/08/19 07/08/19 07/09/19 15:00 23:00 07:00 Intake Total 450 ml 210 ml Output Total 400 ml Balance 450 ml 210 ml -400 ml MONICA TRUJILLO MD Jul 09, 2019 11:20
--- NOTE | 2019-07-09 12:47 | PDOC ---
SUBJECTIVE Subjective low back pain OBJECTIVE Objective 69-yo male know to me,with chronic lower back pain from degenerative disc disease and degenerative joint disease of lumbar spine- he was trialed for spinal stimulator, but his insurance company did not approve a permanent placement. The patient started having increasing back pain yesterday. He is having difficulty to getting up and moving secondary to his back pain. 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 The patient denies any numbness or tingling sensation in the extremities or any trouble with his bowel or bladder control. He denies any radiation of pain to the lower extremities Vital Signs Vital Signs Date Time Temp Pulse Resp B/P (MAP) Pulse Ox O2 Delivery O2 Flow Rate FiO2 07/09/19 11:00 97.9 59 17 114/59 (77) 94 Room Air 97.9 07/09/19 10:53 Room Air 07/09/19 09:20 62 125/59 07/09/19 09:20 62 125/59 07/09/19 09:19 62 125/59 07/09/19 09:19 Room Air 07/09/19 08:30 Room Air 07/09/19 07:00 97.5 62 17 125/59 (81) 93 Room Air 97.5 07/09/19 03:00 98.1 70 18 112/70 (84) 93 98.1 07/08/19 23:00 97.5 75 16 100/66 (77) 92 97.5 07/08/19 20:00 Room Air 07/08/19 19:00 97.6 73 16 113/64 (80) 93 97.6 07/08/19 15:00 97.7 71 18 108/61 (77) 95 Room Air 97.7 I & O Intake and Output 07/09/19 07:00 Intake Total 660 ml Output Total 400 ml Balance 260 ml Intake Oral 660 ml Output Urine Total 400 ml # Voids 1 ASSESSMENT/PLAN Assessment/Plan REC: myofascial release, trigger point injections, anti=inflammatory analgesics. Pt. may consider additional LESI if desired, or re-submit for permanent SCS COMMENT Lab Laboratory Tests Test 07/08/19 16:14 07/08/19 21:15 07/09/19 07:35 07/09/19 11:36 Glucose (Fingerstick) 152 mg/dL (70-99) 185 mg/dL (70-99) 126 mg/dL (70-99) 125 mg/dL (70-99) Justicifation of Admission Dx: Justifications for Admission: Justification of Admission Dx: Yes LEYDA OATES MD Jul 09, 2019 12:47
[2019-07-09 15:00] VITALS: BP 124/65
--- NOTE | 2019-07-09 16:36 | PDOC ---
PROGRESS NOTES Assessment Problems Medical Problems: (1) Intractable low back pain Status: Acute Exacerbation of chronic back pain, without lumbar myelopathy or radiculopathy on bedside testing. Mild discogenic bony edema posteriorly at L2-L3 from disc degeneration, diffuse degenerative disc desiccation throughout the lumbar spine: L2-L3 left foraminal and lateral broad-based disc protrusion, mild spinal canal stenosis and mod erate-severe left neural foraminal stenosis. At L4-L5 there is a disc bulge combined with facet arthrosis and dorsal epidural fat hypertrophy contributing to moderate spinal canal stenosis and neural foraminal stenoses. There are multilevel neural foraminal stenoses throughout the lumbar spine. Neurology follows for restless legs, not for back pain. PM&R and Pain Management consults appreciated Plan Patient wanted to hold on Dr. White's trigger injections until he discussed with me, now willing to have these Dr. Garcia will stay in background, patient can visit him as outpatient Rehabilitation modalities Tizanidine Aim for home tomorrow Subjective Pain 09/15 Objective Vital Signs Date Time Temp Pulse Resp B/P (MAP) Pulse Ox O2 Delivery O2 Flow Rate FiO2 07/09/19 15:00 98.0 17 124/65 (84) 94 Room Air 98.0 07/09/19 11:00 17 Intake and Output 07/09/19 07:00 Intake Total 660 ml Output Total 400 ml Balance 260 ml Intake Oral 660 ml Output Urine Total 400 ml # Voids 1 PHYSICAL EXAM Alert. Oriented to time, place and person. PERRL. EOMI. CN: no focal findings. Muscle tone: normal. Muscle strength: 5/5 DTR: 2+ Plantar reflex: flexor Gait: not examined in bed. Sensory exam: no abnormal findings. No cerebellar signs elicited. Review of Relevant I have reviewed the following items yee (where applicable) has been applied. Labs Laboratory Tests Test 07/07/19 17:37 07/07/19 19:47 07/08/19 05:55 07/08/19 07:29 Urine Collection Type Unknown Urine Color Yellow Urine Clarity Clear Urine pH 5.5 (<5.0-8.0) Urine Specific [place] 1.020 (1.000-1.030) Urine Protein Negative mg/dL (NEG-TRACE) Urine Glucose (UA) 500 mg/dL (NEG) Urine Ketones (Stick) Negative mg/dL (NEG) Urine Blood Negative (NEG) Urine Nitrite Negative (NEG) Urine Bilirubin Negative (NEG) Urine Urobilinogen Dipstick 0.2 mg/dL (0.2 mg/dL) Urine Leukocyte Esterase Negative (NEG) Urine RBC 0 /HPF (0-2) Urine WBC 0 /HPF (0-4) Urine Squamous Epithelial Cells Few /LPF Urine Bacteria 0 /HPF (0-FEW) Urine Mucus Marked /LPF Urine Sperm Present /HPF Glucose (Fingerstick) 148 mg/dL (70-99) 166 mg/dL (70-99) Sodium Level 137 mmol/L (136-145) Potassium Level 4.4 mmol/L (3.5-5.1) Chloride Level 100 mmol/L (98-107) Carbon Dioxide Level 25 mmol/L (21-32) Anion Gap 12 (6-14) Blood Urea Nitrogen 19 mg/dL (8-26) Creatinine 1.1 mg/dL (0.7-1.3) Estimated GFR (Cockcroft-Gault) 66.6 Glucose Level 194 mg/dL (70-99) Calcium Level 8.4 mg/dL (8.5-10.1) Test 07/08/19 11:41 07/08/19 16:14 07/08/19 21:15 07/09/19 07:35 Glucose (Fingerstick) 225 mg/dL (70-99) 152 mg/dL (70-99) 185 mg/dL (70-99) 126 mg/dL (70-99) Test 07/09/19 11:36 Glucose (Fingerstick) 125 mg/dL (70-99) Laboratory Tests Test 07/08/19 21:15 07/09/19 07:35 07/09/19 11:36 Glucose (Fingerstick) 185 mg/dL (70-99) 126 mg/dL (70-99) 125 mg/dL (70-99) Medications Current Medications Orphenadrine Citrate (Norflex) 60 mg 1X ONCE IM Last administered on 07/07/19at 16:16; Start 07/07/19 at 16:15; Stop 07/07/19 at 16:16; Status DC Fentanyl Citrate (Fentanyl 2ml Vial) 50 mcg 1X ONCE IVP Last administered on 07/07/19at 16:29; Start 07/07/19 at 16:15; Stop 07/07/19 at 16:16; Status DC Methylprednisolone Sodium Succinate (SOLU-Medrol 125MG VIAL) 125 mg 1X ONCE IV Last administered on 07/07/19at 17:36; Start 07/07/19 at 18:00; Stop 07/07/19 at 18:01; Status DC Morphine Sulfate (Morphine Sulfate) 4 mg 1X ONCE IV Last administered on 07/07/19at 18:22; Start 07/07/19 at 18:45; Stop 07/07/19 at 18:46; Status DC Ondansetron HCl (Zofran) 4 mg PRN Q8HRS PRN IV NAUSEA/VOMITING; Start 07/07/19 at 18:30; Stop 07/07/19 at 22:04; Status DC Morphine Sulfate (Morphine Sulfate) 2 mg PRN Q2HRS PRN IV PAIN; Start 07/07/19 at 18:30; Stop 07/07/19 at 18:56; Status DC Ketorolac Tromethamine (Toradol 30mg Vial) 30 mg 1X ONCE IVP Last administered on 07/07/19at 19:02; Start 07/07/19 at 19:30; Stop 07/07/19 at 19:31; Status DC Fentanyl Citrate (Fentanyl 2ml Vial) 50 mcg PRN Q2HR PRN IVP PAIN Last administered on 07/09/19at 09:19; Start 07/07/19 at 19:00 Ondansetron HCl (Zofran) 4 mg PRN Q4HRS PRN IV NAUSEA/VOMITING; Start 07/07/19 at 22:00 Potassium Chloride/Water 100 ml @ 100 mls/hr Q1H IV Last administered on 07/08/19at 00:50; Start 07/07/19 at 22:15; Stop 07/08/19 at 00:14; Status DC Potassium Chloride (Klor-Con) 40 meq 1X ONCE PO Last administered on 07/07/19at 23:25; Start 07/07/19 at 22:15; Stop 07/07/19 at 22:16; Status DC Enoxaparin Sodium (Lovenox 40mg Syringe) 40 mg Q24H SQ Last administered on 07/08/19at 22:43; Start 07/07/19 at 22:00 Insulin Human Lispro (HumaLOG) 0-7 UNITS TIDACHC SQ Last administered on 07/08/19at 17:03; Start 07/08/19 at 07:30 Dextrose (Dextrose 50%-Water Syringe) 12.5 gm PRN Q15MIN PRN IV SEE COMMENTS; Start 07/07/19 at 22:00 Acetaminophen (Tylenol) 650 mg PRN Q6HRS PRN PO MILD PAIN / TEMP > 100.3'F; Start 07/07/19 at 22:00 Amlodipine Besylate (Norvasc) 10 mg DAILY PO Last administered on 07/09/19at 09:20; Start 07/08/19 at 09:00 Aspirin (Aspirin Chewable) 81 mg DAILYWBKFT PO Last administered on 07/09/19 09:20; Start 07/08/19 at 08:00 Ferrous Sulfate (Feosol) 325 mg DAILY PO Last administered on 07/09/19at 09:19; Start 07/08/19 at 09:00 Pramipexole Dihydrochloride (miraPEX) 1 mg HS PO ; Start 07/07/19 at 22:30; Stop 07/07/19 at 22:19; Status DC Trazodone HCl (Desyrel) 50 mg QHS PO Last administered on 07/08/19at 21:15; Start 07/07/19 at 22:30 Vitamin D (Vitamin D3) 4,000 unit DAILY PO Last administered on 07/09/19at 09:19; Start 07/08/19 at 09:00 Fluoxetine HCl (PROzac) 40 mg HS PO Last administered on 07/08/19at 21:15; Start 07/07/19 at 22:30 Gabapentin (Neurontin) 600 mg TID PO Last administered on 07/09/19at 13:34; Start 07/07/19 at 22:30 Losartan Potassium (Cozaar) 100 mg DAILY PO Last administered on 07/09/19at 09:19; Start 07/08/19 at 09:00 Metoprolol Succinate (Toprol Xl) 50 mg DAILY PO Last administered on 07/09/19at 09:20; Start 07/08/19 at 09:00 Fish Oil (Fish Oil) 1,000 mg BID PO Last administered on 07/09/19at 09:20; Start 07/07/19 at 22:30 Pantoprazole Sodium (Protonix) 40 mg DAILYAC PO Last administered on 07/09/19at 06:07; Start 07/08/19 at 07:30 Vitamin B Complex (Folbic Tablet) 1 tab BID PO Last administered on 07/09/19at 09:19; Start 07/07/19 at 22:30 Pramipexole Dihydrochloride (miraPEX) 1 mg HS PO Last administered on 07/08/19at 21:15; Start 07/07/19 at 22:30 Tizanidine HCl (Zanaflex) 4 mg Q8HRS PO Last administered on 07/09/19at 13:34; Start 07/08/19 at 09:30 Methylprednisolone Acetate (DEPO-Medrol 40MG VIAL) 40 mg 1X ONCE IM ; Start 07/08/19 at 10:00; Stop 07/08/19 at 10:01; Status DC Bupivacaine HCl (Sensorcaine-Mpf 0.25%) 10 ml 1X ONCE IJ ; Start 07/08/19 at 10:00; Stop 07/08/19 at 10:01; Status DC Active Scripts Active Reported Fluoxetine Hcl 40 Mg Capsule 1 Cap PO HS Vitamin D (Cholecalciferol (Vitamin D3)) 2,000 Unit Capsule 4,000 Unit PO DAILY Mirapex (Pramipexole Di-Hcl) 0.25 Mg Tablet 1 Mg PO HS Vitamin B Complex 1 Each Capsule 1 Each PO BID Requip (Ropinirole Hcl) 1 Mg Tablet 2 Tab PO QHS Protonix (Pantoprazole Sodium) 20 Mg Tablet.dr 40 Mg PO DAILY Aspirin 81 Mg Tab.chew 1 Tab PO DAILY Trazodone Hcl 50 Mg Tablet 1 Tab PO QHS Norvasc (Amlodipine Besylate) 5 Mg Tablet 10 Mg PO DAILY Iron Supplement (Ferrous Sulfate) 325 Mg Tablet 65 Mg PO DAILY Metformin Hcl 1,000 Mg Tablet 1,000 Mg PO BID Fish Oil + D3 Softgel ([place]-3S/Dha/Epa/Fish Oil/D3) 1 Each Capsule 1 Each PO BID Losartan Potassium 100 Mg Tablet 100 Mg PO DAILY Gabapentin 600 Mg Tablet 600 Mg PO TID Centrum Silver Ultra Men's Tab (Multivitamin W-Minerals/Lutein) 1 Each Tablet 1 Each PO Toprol Xl (Metoprolol Succinate) 50 Mg Tab.er.24h 50 Mg PO DAILY Vitals/I & O Vital Sign - Last 24 Hours 6/1/07/08/19 07/08/19 07/09/19 19:00 20:00 23:00 03:00 Temp 97.6 97.5 98.1 97.6 97.5 98.1 Pulse 73 75 70 Resp 16 16 18 B/P (MAP) 113/64 (80) 100/66 (77) 112/70 (84) Pulse Ox 93 92 93 O2 Delivery Room Air 07/09/19 07/09/19 07/09/19 07/09/19 07:00 08:30 09:19 09:19 Temp 97.5 97.5 Pulse 62 62 Resp 17 B/P (MAP) 125/59 (81) 125/59 Pulse Ox 93 O2 Delivery Room Air Room Air Room Air 07/09/19 07/09/19 07/09/19 07/09/19 09:20 09:20 10:53 11:00 Temp 97.9 97.9 Pulse 62 62 59 Resp 17 B/P (MAP) 125/59 125/59 114/59 (77) Pulse Ox 94 O2 Delivery Room Air Room Air 07/09/19 15:00 Temp 98.0 98.0 Pulse 17 B/P (MAP) 124/65 (84) Pulse Ox 94 O2 Delivery Room Air Intake and Output 07/08/19 07/08/19 07/09/19 15:00 23:00 07:00 Intake Total 450 ml 210 ml Output Total 400 ml Balance 450 ml 210 ml -400 ml Images THORACIC SPINE WO CONTRAST History:Reason: intractable back pain / Spl. Instructions: / History: Technique: Multiplanar, multi sequential noncontrast MR imaging was performed of the thoracic spine. Comparison: None Findings: Normal vertebral body height. No fracture. Normal alignment. No pathologic signal abnormality within the thoracic spinal cord. Partially imaged lower cervical spondylosis. Mild multilevel thoracic degenerative disc changes. No significant canal narrowing. No neuroforaminal narrowing. Impression: 1. No acute fracture or subluxation of the thoracic spine. 2. Mild multilevel thoracic spondylosis. MRI lumbar spine without contrast HISTORY: Back pain. FINDINGS: Lumbar vertebral body height and alignment intact. There is mild discogenic bony edema posteriorly at L2-L3 from disc degeneration. Conus terminates at the L1 lumbar vertebral level. Cauda equina are unremarkable. Paraspinal tissues are unremarkable. Diffuse degenerative disc desiccation throughout the lumbar spine is present. Disc disease is described in detail below. L1-L2: No sizable disc bulge or herniation. No spinal canal or neural foraminal stenosis. L2-L3: Moderate posterior disc height loss, mild left facet hypertrophy, extensive posterior disc annulus tearing, mild-moderate disc bulge, with superimposed left foraminal and lateral broad-based disc protrusion contributing to mild narrowing left lateral recess deforming the dural sac, and moderate-severe left neural foraminal stenosis with partial effacement of the perineural fat. There is a right lateral broad-based shallow disc protrusion contributing to mild right neural foraminal stenosis. Mild spinal canal stenosis dural sac diameter 10 mm relative to the normal diameter of 12 mm at the L2 pedicle level. L3-L4: Mild disc bulge and facet hypertrophy. Mild left moderate neural foraminal stenoses. Minimal narrowing lateral recesses. No spinal canal stenosis. L4-L5: Mild posterior disc height loss, mild-moderate disc bulge, facet hypertrophy, and buckling of the dorsal dural sac from prominent dorsal epidural fat. There is [id number] spinal canal stenosis dural sac diameter 8 mm relative to the normal diameter of 11 mm at the L4 pedicle level. Moderate neural foraminal stenoses. L5-S1: Posterior disc height loss, mild/moderate disc bulge, mild lateral vertebral endplate spurring, and facet hypertrophy and mild spurring. Moderate left neural foraminal stenosis. Mild right neural foraminal stenosis. No spinal canal stenosis. IMPRESSION: Lumbar disc disease and facet arthrosis. At L2-L3 there is a left foraminal and lateral broad-based disc protrusion contributing to mild spinal canal stenosis and moderate-severe left neural foraminal stenosis. At L4-L5 there is a disc bulge combined with facet arthrosis and dorsal epidural fat hypertrophy contributing to moderate spinal canal stenosis and neural foraminal stenoses. There are multilevel neural foraminal stenoses throughout the lumbar spine. See discussion above. Justicifation of Admission Dx: Justifications for Admission: Justification of Admission Dx: Yes TYLER HURD MD Jul 09, 2019 16:36
[2019-07-09] MEDS ORDERED: MAGNESIUM HYDROXIDE 2,400 MG/30 ML ORAL.SUSP. PO ONE (16:45)
[2019-07-09 19:00] VITALS: BP 124/76
[2019-07-09] MEDS: ENOXAPARIN 40 MG/0.4 ML SYRINGE. SQ SCH (20:21)
[2019-07-09] MEDS: DOCUSATE SODIUM 100 MG CAPSULE. PO SCH (20:22)
[2019-07-09] MEDS: traZODone 50 MG TABLET. PO SCH (20:22)
[2019-07-09] MEDS: FLUoxetine HCL 20 MG CAPSULE PO SCH (20:22)
[2019-07-09] MEDS: PRAMIPEXOLE 1 MG TABLET. PO SCH (20:22)
[2019-07-09 22:25] VITALS: BP 146/82
[2019-07-10 03:06] VITALS: BP 162/80
[2019-07-10 04:52] LABS: BASO % 1 % (0-3); EOS # 0.3 x10^3/uL (0.0-0.7); EOS % 5 % (0-3); HEMOGLOBIN 14.1 g/dL (13.0-17.5); LYMPH % 27 % (24-48); MEAN CORPUSCULAR HEMOGLOBIN 30 pg (25-35); MEAN CORPUSCULAR HGB CONC 34 g/dL (31-37); MEAN CORPUSCULAR VOLUME 90 fL (79-100); MONO # 0.5 x10^3/uL (0.0-1.1); MONO % 7 % (0-9); NEUT # 4.5 x10^3/uL (1.8-7.7); NEUT % 60 % (31-73); PLATELET COUNT 270 x10^3/uL (140-400); RED CELL DISTRIBUTION WIDTH 14.8 % (11.5-14.5); WHITE BLOOD COUNT 7.4 x10^3/uL (4.0-11.0)
[2019-07-10 05:17] LABS: CALCIUM 8.1 mg/dL (8.5-10.1); CREATININE 1.1 mg/dL (0.7-1.3); GFR 66.6
[2019-07-10] MEDS: tiZANidine 4 MG TABLET. PO SCH ×2 (06:14→14:19)
[2019-07-10] MEDS: PANTOPRAZOLE 40 MG TABLET.DR. PO SCH (06:14)
[2019-07-10 07:00] VITALS: BP 136/71
[2019-07-10] MEDS: INSULIN LISPRO 300 UNITS/3 ML VIAL. SQ SCH ×2 (07:30→12:17)
[2019-07-10] MEDS: GABAPENTIN 300 MG CAPSULE. PO SCH ×2 (08:16→14:19)
[2019-07-10] MEDS: VITAMIN B12,B9,B6 COMPLEX 1 TABLET. PO SCH (08:16)
[2019-07-10] MEDS: ASPIRIN CHEWABLE 81 MG TABLET. PO SCH (08:16)
[2019-07-10] MEDS: CHOLECALCIFEROL (VITAMIN D3) 1,000 UNIT TABLET PO SCH (08:16)
[2019-07-10] MEDS: DOCUSATE SODIUM 100 MG CAPSULE. PO SCH (08:17)
[2019-07-10] MEDS: OMEGA-3 FATTY ACIDS/FISH OIL 1,000 MG CAPSULE. PO SCH (08:17)
[2019-07-10] MEDS: FERROUS SULFATE 325 MG TABLET. PO SCH (08:17)
[2019-07-10] MEDS: METOPROLOL SUCC 24HR ER 50 MG TAB.ER.24H. PO SCH (08:17)
[2019-07-10] MEDS: amLODIPine BESYLATE 5 MG TABLET PO SCH (08:20)
--- NOTE | 2019-07-10 09:10 | PDOC ---
PROGRESS NOTES Subjective Subjective He admits continued low back pain. Objective Objective Vital Signs Date Time Temp Pulse Resp B/P (MAP) Pulse Ox O2 Delivery O2 Flow Rate FiO2 07/10/19 08:20 56 136/71 07/10/19 07:00 97.5 17 92 Room Air 97.5 Intake and Output 07/10/19 07:00 Intake Total 180 ml Output Total 720 ml Balance -540 ml Intake Oral 180 ml Output Urine Total 720 ml Physical Exam Physical Exam He is alert,supine in bed and in no acute distress and continues with painfully limited lumbar spine ROM with tenderness to palpation over left lumbar parasp inal muscles and SLR test is negative bilaterally. Assessment Assessment Problems Medical Problems: (1) Intractable low back pain Status: Acute Plan Plan of Care At his request,I have injected painful trigger points over left lumbar paraspinal muscles under aseptic skin technique with 1 ml of methylprednisone 40 mg/ 1 ml solution mixed with 2 ml of 0.25% bupivacaine 0.25% solution and she tolerated the procedure satisfactorily without any side effects. Home with out patient follow up when medically stable. Post injection he walked with roller walker and abdominal binder as lumbar corset in the hallway without any difficulty. Comment Review of Relevant I have reviewed the following items yee (where applicable) has been applied. Labs Laboratory Tests Test 07/08/19 11:41 07/08/19 16:14 07/08/19 21:15 07/09/19 07:35 Glucose (Fingerstick) 225 mg/dL (70-99) 152 mg/dL (70-99) 185 mg/dL (70-99) 126 mg/dL (70-99) Test 07/09/19 11:36 07/09/19 16:33 07/09/19 20:21 07/10/19 04:20 Glucose (Fingerstick) 125 mg/dL (70-99) 150 mg/dL (70-99) 139 mg/dL (70-99) White Blood Count 7.4 x10^3/uL (4.0-11.0) Red Blood Count 4.70 x10^6/uL (4.30-5.70) Hemoglobin 14.1 g/dL (13.0-17.5) Hematocrit 42.0 % (39.0-53.0) Mean Corpuscular Volume 90 fL (79-100) Mean Corpuscular Hemoglobin 30 pg (25-35) Mean Corpuscular Hemoglobin Concent 34 g/dL (31-37) Red Cell Distribution Width 14.8 % (11.5-14.5) Platelet Count 270 x10^3/uL (140-400) Neutrophils (%) (Auto) 60 % (31-73) Lymphocytes (%) (Auto) 27 % (24-48) Monocytes (%) (Auto) 7 % (0-9) Eosinophils (%) (Auto) 5 % (0-3) Basophils (%) (Auto) 1 % (0-3) Neutrophils # (Auto) 4.5 x10^3/uL (1.8-7.7) Lymphocytes # (Auto) 2.0 x10^3/uL (1.0-4.8) Monocytes # (Auto) 0.5 x10^3/uL (0.0-1.1) Eosinophils # (Auto) 0.3 x10^3/uL (0.0-0.7) Basophils # (Auto) 0.0 x10^3/uL (0.0-0.2) Sodium Level 140 mmol/L (136-145) Potassium Level 4.0 mmol/L (3.5-5.1) Chloride Level 103 mmol/L (98-107) Carbon Dioxide Level 27 mmol/L (21-32) Anion Gap 10 (6-14) Blood Urea Nitrogen 20 mg/dL (8-26) Creatinine 1.1 mg/dL (0.7-1.3) Estimated GFR (Cockcroft-Gault) 66.6 Glucose Level 140 mg/dL (70-99) Calcium Level 8.1 mg/dL (8.5-10.1) Test 07/10/19 07:09 Glucose (Fingerstick) 128 mg/dL (70-99) Laboratory Tests Test 07/09/19 11:36 07/09/19 16:33 07/09/19 20:21 07/10/19 04:20 Glucose (Fingerstick) 125 mg/dL (70-99) 150 mg/dL (70-99) 139 mg/dL (70-99) White Blood Count 7.4 x10^3/uL (4.0-11.0) Red Blood Count 4.70 x10^6/uL (4.30-5.70) Hemoglobin 14.1 g/dL (13.0-17.5) Hematocrit 42.0 % (39.0-53.0) Mean Corpuscular Volume 90 fL (79-100) Mean Corpuscular Hemoglobin 30 pg (25-35) Mean Corpuscular Hemoglobin Concent 34 g/dL (31-37) Red Cell Distribution Width 14.8 % (11.5-14.5) Platelet Count 270 x10^3/uL (140-400) Neutrophils (%) (Auto) 60 % (31-73) Lymphocytes (%) (Auto) 27 % (24-48) Monocytes (%) (Auto) 7 % (0-9) Eosinophils (%) (Auto) 5 % (0-3) Basophils (%) (Auto) 1 % (0-3) Neutrophils # (Auto) 4.5 x10^3/uL (1.8-7.7) Lymphocytes # (Auto) 2.0 x10^3/uL (1.0-4.8) Monocytes # (Auto) 0.5 x10^3/uL (0.0-1.1) Eosinophils # (Auto) 0.3 x10^3/uL (0.0-0.7) Basophils # (Auto) 0.0 x10^3/uL (0.0-0.2) Sodium Level 140 mmol/L (136-145) Potassium Level 4.0 mmol/L (3.5-5.1) Chloride Level 103 mmol/L (98-107) Carbon Dioxide Level 27 mmol/L (21-32) Anion Gap 10 (6-14) Blood Urea Nitrogen 20 mg/dL (8-26) Creatinine 1.1 mg/dL (0.7-1.3) Estimated GFR (Cockcroft-Gault) 66.6 Glucose Level 140 mg/dL (70-99) Calcium Level 8.1 mg/dL (8.5-10.1) Test 07/10/19 07:09 Glucose (Fingerstick) 128 mg/dL (70-99) Medications Current Medications Orphenadrine Citrate (Norflex) 60 mg 1X ONCE IM Last administered on 07/07/19at 16:16; Start 07/07/19 at 16:15; Stop 07/07/19 at 16:16; Status DC Fentanyl Citrate (Fentanyl 2ml Vial) 50 mcg 1X ONCE IVP Last administered on 07/07/19at 16:29; Start 07/07/19 at 16:15; Stop 07/07/19 at 16:16; Status DC Methylprednisolone Sodium Succinate (SOLU-Medrol 125MG VIAL) 125 mg 1X ONCE IV Last administered on 07/07/19at 17:36; Start 07/07/19 at 18:00; Stop 07/07/19 at 18:01; Status DC Morphine Sulfate (Morphine Sulfate) 4 mg 1X ONCE IV Last administered on 07/07/19at 18:22; Start 07/07/19 at 18:45; Stop 07/07/19 at 18:46; Status DC Ondansetron HCl (Zofran) 4 mg PRN Q8HRS PRN IV NAUSEA/VOMITING; Start 07/07/19 at 18:30; Stop 07/07/19 at 22:04; Status DC Morphine Sulfate (Morphine Sulfate) 2 mg PRN Q2HRS PRN IV PAIN; Start 07/07/19 at 18:30; Stop 07/07/19 at 18:56; Status DC Ketorolac Tromethamine (Toradol 30mg Vial) 30 mg 1X ONCE IVP Last administered on 07/07/19at 19:02; Start 07/07/19 at 19:30; Stop 07/07/19 at 19:31; Status DC Fentanyl Citrate (Fentanyl 2ml Vial) 50 mcg PRN Q2HR PRN IVP PAIN Last administered on 07/09/19at 09:19; Start 07/07/19 at 19:00 Ondansetron HCl (Zofran) 4 mg PRN Q4HRS PRN IV NAUSEA/VOMITING; Start 07/07/19 at 22:00 Potassium Chloride/Water 100 ml @ 100 mls/hr Q1H IV Last administered on 07/08/19at 00:50; Start 07/07/19 at 22:15; Stop 07/08/19 at 00:14; Status DC Potassium Chloride (Klor-Con) 40 meq 1X ONCE PO Last administered on 07/07/19at 23:25; Start 07/07/19 at 22:15; Stop 07/07/19 at 22:16; Status DC Enoxaparin Sodium (Lovenox 40mg Syringe) 40 mg Q24H SQ Last administered on 07/09/19 20:21; Start 07/07/19 at 22:00 Insulin Human Lispro (HumaLOG) 0-7 UNITS TIDACHC SQ Last administered on 07/08/19at 17:03; Start 07/08/19 at 07:30 Dextrose (Dextrose 50%-Water Syringe) 12.5 gm PRN Q15MIN PRN IV SEE COMMENTS; Start 07/07/19 at 22:00 Acetaminophen (Tylenol) 650 mg PRN Q6HRS PRN PO MILD PAIN / TEMP > 100.3'F; Start 07/07/19 at 22:00 Amlodipine Besylate (Norvasc) 10 mg DAILY PO Last administered on 07/10/19 08:20; Start 07/08/19 at 09:00 Aspirin (Aspirin Chewable) 81 mg DAILYWBKFT PO Last administered on 07/10/19 08:16; Start 07/08/19 at 08:00 Ferrous Sulfate (Feosol) 325 mg DAILY PO Last administered on 07/10/19 08:17; Start 07/08/19 at 09:00 Pramipexole Dihydrochloride (miraPEX) 1 mg HS PO ; Start 07/07/19 at 22:30; Stop 07/07/19 at 22:19; Status DC Trazodone HCl (Desyrel) 50 mg QHS PO Last administered on 07/09/19 20:22; Start 07/07/19 at 22:30 Vitamin D (Vitamin D3) 4,000 unit DAILY PO Last administered on 07/10/19 08:16; Start 07/08/19 at 09:00 Fluoxetine HCl (PROzac) 40 mg HS PO Last administered on 07/09/19 20:22; Start 07/07/19 at 22:30 Gabapentin (Neurontin) 600 mg TID PO Last administered on 07/10/19 08:16; Start 07/07/19 at 22:30 Losartan Potassium (Cozaar) 100 mg DAILY PO Last administered on 07/09/19 09:19; Start 07/08/19 at 09:00 Metoprolol Succinate (Toprol Xl) 50 mg DAILY PO Last administered on 07/10/19 08:17; Start 07/08/19 at 09:00 Fish Oil (Fish Oil) 1,000 mg BID PO Last administered on 07/10/19 08:17; Start 07/07/19 at 22:30 Pantoprazole Sodium (Protonix) 40 mg DAILYAC PO Last administered on 07/10/19at 06:14; Start 07/08/19 at 07:30 Vitamin B Complex (Folbic Tablet) 1 tab BID PO Last administered on 07/10/19at 08:16; Start 07/07/19 at 22:30 Pramipexole Dihydrochloride (miraPEX) 1 mg HS PO Last administered on 07/09/19at 20:22; Start 07/07/19 at 22:30 Tizanidine HCl (Zanaflex) 4 mg Q8HRS PO Last administered on 07/10/19at 06:14; Start 07/08/19 at 09:30 Methylprednisolone Acetate (DEPO-Medrol 40MG VIAL) 40 mg 1X ONCE IM ; Start 07/08/19 at 10:00; Stop 07/08/19 at 10:01; Status DC Bupivacaine HCl (Sensorcaine-Mpf 0.25%) 10 ml 1X ONCE IJ ; Start 07/08/19 at 10:00; Stop 07/08/19 at 10:01; Status DC Magnesium Hydroxide (Milk Of Magnesia) 2,400 mg 1X ONCE PO Last administered on 07/09/19at 17:34; Start 07/09/19 at 16:45; Stop 07/09/19 at 16:46; Status DC Docusate Sodium (Colace) 100 mg BID PO Last administered on 07/10/19at 08:17; Start 07/09/19 at 21:00 Active Scripts Active Reported Fluoxetine Hcl 40 Mg Capsule 1 Cap PO HS Vitamin D (Cholecalciferol (Vitamin D3)) 2,000 Unit Capsule 4,000 Unit PO DAILY Mirapex (Pramipexole Di-Hcl) 0.25 Mg Tablet 1 Mg PO HS Vitamin B Complex 1 Each Capsule 1 Each PO BID Requip (Ropinirole Hcl) 1 Mg Tablet 2 Tab PO QHS Protonix (Pantoprazole Sodium) 20 Mg Tablet.dr 40 Mg PO DAILY Aspirin 81 Mg Tab.chew 1 Tab PO DAILY Trazodone Hcl 50 Mg Tablet 1 Tab PO QHS Norvasc (Amlodipine Besylate) 5 Mg Tablet 10 Mg PO DAILY Iron Supplement (Ferrous Sulfate) 325 Mg Tablet 65 Mg PO DAILY Metformin Hcl 1,000 Mg Tablet 1,000 Mg PO BID Fish Oil + D3 Softgel ([place]-3S/Dha/Epa/Fish Oil/D3) 1 Each Capsule 1 Each PO BID Losartan Potassium 100 Mg Tablet 100 Mg PO DAILY Gabapentin 600 Mg Tablet 600 Mg PO TID Centrum Silver Ultra Men's Tab (Multivitamin W-Minerals/Lutein) 1 Each Tablet 1 Each PO Toprol Xl (Metoprolol Succinate) 50 Mg Tab.er.24h 50 Mg PO DAILY Vitals/I & O Vital Sign - Last 24 Hours 07/09/19 07/09/19 07/09/19 07/09/19 09:19 09:19 09:20 09:20 Pulse 62 62 62 B/P (MAP) 125/59 125/59 125/59 O2 Delivery Room Air 07/09/19 07/09/19 07/09/19 07/09/19 10:53 11:00 15:00 19:00 Temp 97.9 98.0 97.9 97.9 98.0 97.9 Pulse 59 17 59 Resp 17 18 B/P (MAP) 114/59 (77) 124/65 (84) 124/76 (92) Pulse Ox 94 94 96 O2 Delivery Room Air Room Air Room Air Room Air 07/09/19 07/09/19 07/10/19 07/10/19 20:00 22:25 03:06 07:00 Temp 97.7 97.4 97.5 97.7 97.4 97.5 Pulse 60 57 56 Resp 16 18 17 B/P (MAP) 146/82 (103) 162/80 (107) 136/71 (92) Pulse Ox 96 96 92 O2 Delivery Room Air Room Air Room Air Room Air 07/10/19 07/10/19 08:17 08:20 Pulse 56 56 B/P (MAP) 136/71 136/71 Intake and Output 07/09/19 07/09/19 07/10/19 15:00 23:00 07:00 Intake Total 180 ml Output Total 320 ml 400 ml Balance -320 ml -220 ml JONATHAN ANSARI MD Jul 10, 2019 09:09
[2019-07-10] MEDS ORDERED: methylPREDNISolone ACETATE 40 MG/ML VIAL. ONE (09:30)
[2019-07-10] MEDS ORDERED: BUPIVACAINE MPF 0.25% 10 ML VIAL. ONE (09:30)
--- NOTE | 2019-07-10 09:36 | PDOC ---
PROGRESS NOTES History of Present Illness History of Present Illness VTE Prophylaxis Ordered VTE Prophylaxis Devices: Yes VTE Pharmacological Prophylaxi: Contraindicated DISCHARGE DX Assessment/Plan Impression: Intractable low back pain, pain better today with brace Lumbar disc disease and facet arthrosis. At L2-L3 there is a left foraminal and lateral broad-based disc protrusion contributing to mild spinal canal stenosis and moderate-severe left neural foraminal stenosis. At L4-L5 there is a disc bulge combined with facet arthrosis and dorsal epidural fat hypertrophy contributing to moderate spinal c anal stenosis and neural foraminal stenoses. moderate central canal stenosis at L2-L3 and mild central canal narrowing at L3-L4. Central disc protrusion at L4-L5 mildly flattening the ventral thecal sac gait instability Morbid obesity ADMITTED Trial of tizanidine Lumbar MRI neurology consult rehab consult consult dr davila pain mgt D/W RN Treatment Plan * Therapeutic Exercise * Gait Training Frequency of Treatment Expected * 7 visits/week Duration of Treatment Expected * 2 weeks Discharge Recommendations * Home with outpatient Justicifation of Admission Dx: Justicifation of Admission Dx: Justifications for Admission: Justification of Admission Dx: Yes Comments: INTRACTABLE PAIN, UNABLE TO SAFELY AMBULATE on admit D/C PLANNING 27 MIN Vitals Vitals Vital Signs Date Time Temp Pulse Resp B/P (MAP) Pulse Ox O2 Delivery O2 Flow Rate FiO2 07/10/19 08:20 56 136/71 07/10/19 08:00 Room Air 07/10/19 07:00 97.5 17 92 97.5 Physical Exam General: Alert, Oriented X3, Cooperative, No acute distress Heart: Regular rate Lungs: Clear Abdomen: Normal bowel sounds, Soft, No tenderness Extremities: No clubbing, No cyanosis, No edema Skin: No significant lesion Labs LABS Laboratory Tests Test 07/09/19 11:36 07/09/19 16:33 07/09/19 20:21 07/10/19 04:20 Glucose (Fingerstick) 125 mg/dL (70-99) 150 mg/dL (70-99) 139 mg/dL (70-99) White Blood Count 7.4 x10^3/uL (4.0-11.0) Red Blood Count 4.70 x10^6/uL (4.30-5.70) Hemoglobin 14.1 g/dL (13.0-17.5) Hematocrit 42.0 % (39.0-53.0) Mean Corpuscular Volume 90 fL (79-100) Mean Corpuscular Hemoglobin 30 pg (25-35) Mean Corpuscular Hemoglobin Concent 34 g/dL (31-37) Red Cell Distribution Width 14.8 % (11.5-14.5) Platelet Count 270 x10^3/uL (140-400) Neutrophils (%) (Auto) 60 % (31-73) Lymphocytes (%) (Auto) 27 % (24-48) Monocytes (%) (Auto) 7 % (0-9) Eosinophils (%) (Auto) 5 % (0-3) Basophils (%) (Auto) 1 % (0-3) Neutrophils # (Auto) 4.5 x10^3/uL (1.8-7.7) Lymphocytes # (Auto) 2.0 x10^3/uL (1.0-4.8) Monocytes # (Auto) 0.5 x10^3/uL (0.0-1.1) Eosinophils # (Auto) 0.3 x10^3/uL (0.0-0.7) Basophils # (Auto) 0.0 x10^3/uL (0.0-0.2) Sodium Level 140 mmol/L (136-145) Potassium Level 4.0 mmol/L (3.5-5.1) Chloride Level 103 mmol/L (98-107) Carbon Dioxide Level 27 mmol/L (21-32) Anion Gap 10 (6-14) Blood Urea Nitrogen 20 mg/dL (8-26) Creatinine 1.1 mg/dL (0.7-1.3) Estimated GFR (Cockcroft-Gault) 66.6 Glucose Level 140 mg/dL (70-99) Calcium Level 8.1 mg/dL (8.5-10.1) Test 07/10/19 07:09 Glucose (Fingerstick) 128 mg/dL (70-99) Assessment and Plan Assessmemt and Plan Problems Medical Problems: (1) Intractable low back pain Status: Acute Comment Review of Relevant I have reviewed the following items yee (where applicable) has been applied. Labs Laboratory Tests Test 07/08/19 11:41 07/08/19 16:14 07/08/19 21:15 07/09/19 07:35 Glucose (Fingerstick) 225 mg/dL (70-99) 152 mg/dL (70-99) 185 mg/dL (70-99) 126 mg/dL (70-99) Test 07/09/19 11:36 07/09/19 16:33 07/09/19 20:21 07/10/19 04:20 Glucose (Fingerstick) 125 mg/dL (70-99) 150 mg/dL (70-99) 139 mg/dL (70-99) White Blood Count 7.4 x10^3/uL (4.0-11.0) Red Blood Count 4.70 x10^6/uL (4.30-5.70) Hemoglobin 14.1 g/dL (13.0-17.5) Hematocrit 42.0 % (39.0-53.0) Mean Corpuscular Volume 90 fL (79-100) Mean Corpuscular Hemoglobin 30 pg (25-35) Mean Corpuscular Hemoglobin Concent 34 g/dL (31-37) Red Cell Distribution Width 14.8 % (11.5-14.5) Platelet Count 270 x10^3/uL (140-400) Neutrophils (%) (Auto) 60 % (31-73) Lymphocytes (%) (Auto) 27 % (24-48) Monocytes (%) (Auto) 7 % (0-9) Eosinophils (%) (Auto) 5 % (0-3) Basophils (%) (Auto) 1 % (0-3) Neutrophils # (Auto) 4.5 x10^3/uL (1.8-7.7) Lymphocytes # (Auto) 2.0 x10^3/uL (1.0-4.8) Monocytes # (Auto) 0.5 x10^3/uL (0.0-1.1) Eosinophils # (Auto) 0.3 x10^3/uL (0.0-0.7) Basophils # (Auto) 0.0 x10^3/uL (0.0-0.2) Sodium Level 140 mmol/L (136-145) Potassium Level 4.0 mmol/L (3.5-5.1) Chloride Level 103 mmol/L (98-107) Carbon Dioxide Level 27 mmol/L (21-32) Anion Gap 10 (6-14) Blood Urea Nitrogen 20 mg/dL (8-26) Creatinine 1.1 mg/dL (0.7-1.3) Estimated GFR (Cockcroft-Gault) 66.6 Glucose Level 140 mg/dL (70-99) Calcium Level 8.1 mg/dL (8.5-10.1) Test 07/10/19 07:09 Glucose (Fingerstick) 128 mg/dL (70-99) Laboratory Tests Test 07/09/19 11:36 07/09/19 16:33 07/09/19 20:21 07/10/19 04:20 Glucose (Fingerstick) 125 mg/dL (70-99) 150 mg/dL (70-99) 139 mg/dL (70-99) White Blood Count 7.4 x10^3/uL (4.0-11.0) Red Blood Count 4.70 x10^6/uL (4.30-5.70) Hemoglobin 14.1 g/dL (13.0-17.5) Hematocrit 42.0 % (39.0-53.0) Mean Corpuscular Volume 90 fL (79-100) Mean Corpuscular Hemoglobin 30 pg (25-35) Mean Corpuscular Hemoglobin Concent 34 g/dL (31-37) Red Cell Distribution Width 14.8 % (11.5-14.5) Platelet Count 270 x10^3/uL (140-400) Neutrophils (%) (Auto) 60 % (31-73) Lymphocytes (%) (Auto) 27 % (24-48) Monocytes (%) (Auto) 7 % (0-9) Eosinophils (%) (Auto) 5 % (0-3) Basophils (%) (Auto) 1 % (0-3) Neutrophils # (Auto) 4.5 x10^3/uL (1.8-7.7) Lymphocytes # (Auto) 2.0 x10^3/uL (1.0-4.8) Monocytes # (Auto) 0.5 x10^3/uL (0.0-1.1) Eosinophils # (Auto) 0.3 x10^3/uL (0.0-0.7) Basophils # (Auto) 0.0 x10^3/uL (0.0-0.2) Sodium Level 140 mmol/L (136-145) Potassium Level 4.0 mmol/L (3.5-5.1) Chloride Level 103 mmol/L (98-107) Carbon Dioxide Level 27 mmol/L (21-32) Anion Gap 10 (6-14) Blood Urea Nitrogen 20 mg/dL (8-26) Creatinine 1.1 mg/dL (0.7-1.3) Estimated GFR (Cockcroft-Gault) 66.6 Glucose Level 140 mg/dL (70-99) Calcium Level 8.1 mg/dL (8.5-10.1) Test 07/10/19 07:09 Glucose (Fingerstick) 128 mg/dL (70-99) Medications Current Medications Orphenadrine Citrate (Norflex) 60 mg 1X ONCE IM Last administered on 07/07/19at 16:16; Start 07/07/19 at 16:15; Stop 07/07/19 at 16:16; Status DC Fentanyl Citrate (Fentanyl 2ml Vial) 50 mcg 1X ONCE IVP Last administered on 07/07/19at 16:29; Start 07/07/19 at 16:15; Stop 07/07/19 at 16:16; Status DC Methylprednisolone Sodium Succinate (SOLU-Medrol 125MG VIAL) 125 mg 1X ONCE IV Last administered on 07/07/19at 17:36; Start 07/07/19 at 18:00; Stop 07/07/19 at 18:01; Status DC Morphine Sulfate (Morphine Sulfate) 4 mg 1X ONCE IV Last administered on 07/07/19at 18:22; Start 07/07/19 at 18:45; Stop 07/07/19 at 18:46; Status DC Ondansetron HCl (Zofran) 4 mg PRN Q8HRS PRN IV NAUSEA/VOMITING; Start 07/07/19 at 18:30; Stop 07/07/19 at 22:04; Status DC Morphine Sulfate (Morphine Sulfate) 2 mg PRN Q2HRS PRN IV PAIN; Start 07/07/19 at 18:30; Stop 07/07/19 at 18:56; Status DC Ketorolac Tromethamine (Toradol 30mg Vial) 30 mg 1X ONCE IVP Last administered on 07/07/19at 19:02; Start 07/07/19 at 19:30; Stop 07/07/19 at 19:31; Status DC Fentanyl Citrate (Fentanyl 2ml Vial) 50 mcg PRN Q2HR PRN IVP PAIN Last administered on 07/09/19at 09:19; Start 07/07/19 at 19:00 Ondansetron HCl (Zofran) 4 mg PRN Q4HRS PRN IV NAUSEA/VOMITING; Start 07/07/19 at 22:00 Potassium Chloride/Water 100 ml @ 100 mls/hr Q1H IV Last administered on 07/08/19at 00:50; Start 07/07/19 at 22:15; Stop 07/08/19 at 00:14; Status DC Potassium Chloride (Klor-Con) 40 meq 1X ONCE PO Last administered on 07/07/19at 23:25; Start 07/07/19 at 22:15; Stop 07/07/19 at 22:16; Status DC Enoxaparin Sodium (Lovenox 40mg Syringe) 40 mg Q24H SQ Last administered on 07/09/19at 20:21; Start 07/07/19 at 22:00 Insulin Human Lispro (HumaLOG) 0-7 UNITS TIDACHC SQ Last administered on 07/08/19at 17:03; Start 07/08/19 at 07:30 Dextrose (Dextrose 50%-Water Syringe) 12.5 gm PRN Q15MIN PRN IV SEE COMMENTS; Start 07/07/19 at 22:00 Acetaminophen (Tylenol) 650 mg PRN Q6HRS PRN PO MILD PAIN / TEMP > 100.3'F; Start 07/07/19 at 22:00 Amlodipine Besylate (Norvasc) 10 mg DAILY PO Last administered on 07/10/19at 08:20; Start 07/08/19 at 09:00 Aspirin (Aspirin Chewable) 81 mg DAILYWBKFT PO Last administered on 07/10/19at 08:16; Start 07/08/19 at 08:00 Ferrous Sulfate (Feosol) 325 mg DAILY PO Last administered on 07/10/19at 08:17; Start 07/08/19 at 09:00 Pramipexole Dihydrochloride (miraPEX) 1 mg HS PO ; Start 07/07/19 at 22:30; Stop 07/07/19 at 22:19; Status DC Trazodone HCl (Desyrel) 50 mg QHS PO Last administered on 07/09/19 20:22; Start 07/07/19 at 22:30 Vitamin D (Vitamin D3) 4,000 unit DAILY PO Last administered on 07/10/19 08:16; Start 07/08/19 at 09:00 Fluoxetine HCl (PROzac) 40 mg HS PO Last administered on 07/09/19at 20:22; Start 07/07/19 at 22:30 Gabapentin (Neurontin) 600 mg TID PO Last administered on 07/10/19 08:16; Start 07/07/19 at 22:30 Losartan Potassium (Cozaar) 100 mg DAILY PO Last administered on 07/09/19 09:19; Start 07/08/19 at 09:00 Metoprolol Succinate (Toprol Xl) 50 mg DAILY PO Last administered on 07/10/19 08:17; Start 07/08/19 at 09:00 Fish Oil (Fish Oil) 1,000 mg BID PO Last administered on 07/10/19 08:17; Start 07/07/19 at 22:30 Pantoprazole Sodium (Protonix) 40 mg DAILYAC PO Last administered on 07/10/19 06:14; Start 07/08/19 at 07:30 Vitamin B Complex (Folbic Tablet) 1 tab BID PO Last administered on 07/10/19 08:16; Start 07/07/19 at 22:30 Pramipexole Dihydrochloride (miraPEX) 1 mg HS PO Last administered on 07/09/19at 20:22; Start 07/07/19 at 22:30 Tizanidine HCl (Zanaflex) 4 mg Q8HRS PO Last administered on 07/10/19at 06:14; Start 07/08/19 at 09:30 Methylprednisolone Acetate (DEPO-Medrol 40MG VIAL) 40 mg 1X ONCE IM ; Start 07/08/19 at 10:00; Stop 07/08/19 at 10:01; Status DC Bupivacaine HCl (Sensorcaine-Mpf 0.25%) 10 ml 1X ONCE IJ ; Start 07/08/19 at 10:00; Stop 07/08/19 at 10:01; Status DC Magnesium Hydroxide (Milk Of Magnesia) 2,400 mg 1X ONCE PO Last administered on 07/09/19at 17:34; Start 07/09/19 at 16:45; Stop 07/09/19 at 16:46; Status DC Docusate Sodium (Colace) 100 mg BID PO Last administered on 07/10/19at 08:17; Start 07/09/19 at 21:00 Active Scripts Active Reported Fluoxetine Hcl 40 Mg Capsule 1 Cap PO HS Vitamin D (Cholecalciferol (Vitamin D3)) 2,000 Unit Capsule 4,000 Unit PO DAILY Mirapex (Pramipexole Di-Hcl) 0.25 Mg Tablet 1 Mg PO HS Vitamin B Complex 1 Each Capsule 1 Each PO BID Requip (Ropinirole Hcl) 1 Mg Tablet 2 Tab PO QHS Protonix (Pantoprazole Sodium) 20 Mg Tablet.dr 40 Mg PO DAILY Aspirin 81 Mg Tab.chew 1 Tab PO DAILY Trazodone Hcl 50 Mg Tablet 1 Tab PO QHS Norvasc (Amlodipine Besylate) 5 Mg Tablet 10 Mg PO DAILY Iron Supplement (Ferrous Sulfate) 325 Mg Tablet 65 Mg PO DAILY Metformin Hcl 1,000 Mg Tablet 1,000 Mg PO BID Fish Oil + D3 Softgel ([place]-3S/Dha/Epa/Fish Oil/D3) 1 Each Capsule 1 Each PO BID Losartan Potassium 100 Mg Tablet 100 Mg PO DAILY Gabapentin 600 Mg Tablet 600 Mg PO TID Centrum Silver Ultra Men's Tab (Multivitamin W-Minerals/Lutein) 1 Each Tablet 1 Each PO Toprol Xl (Metoprolol Succinate) 50 Mg Tab.er.24h 50 Mg PO DAILY Vitals/I & O Vital Sign - Last 24 Hours 07/09/19 07/09/19 07/09/19 07/09/19 10:53 11:00 15:00 19:00 Temp 97.9 98.0 97.9 97.9 98.0 97.9 Pulse 59 17 59 Resp 17 18 B/P (MAP) 114/59 (77) 124/65 (84) 124/76 (92) Pulse Ox 94 94 96 O2 Delivery Room Air Room Air Room Air Room Air 07/09/19 07/09/19 07/10/19 07/10/19 20:00 22:25 03:06 07:00 Temp 97.7 97.4 97.5 97.7 97.4 97.5 Pulse 60 57 56 Resp 16 18 17 B/P (MAP) 146/82 (103) 162/80 (107) 136/71 (92) Pulse Ox 96 96 92 O2 Delivery Room Air Room Air Room Air Room Air 07/10/19 07/10/19 07/10/19 08:00 08:17 08:20 Pulse 56 56 B/P (MAP) 136/71 136/71 O2 Delivery Room Air l Intake and Output 07/09/19 07/09/19 07/10/19 14:59 22:59 06:59 Intake Total 180 ml Output Total 320 ml 400 ml Balance -320 ml -220 ml MONICA TRUJILLO MD Jul 10, 2019 09:36
--- NOTE | 2019-07-10 10:00 | PDOC ---
PROGRESS NOTES Assessment Problems Medical Problems: (1) Intractable low back pain Status: Acute Exacerbation of chronic back pain, without lumbar myelopathy or radiculopathy on bedside testing. Mild discogenic bony edema posteriorly at L2-L3 from disc degeneration, diffuse degenerative disc desiccation throughout the lumbar spine: L2-L3 left foraminal and lateral broad-based disc protrusion, mild spinal canal stenosis and mod erate-severe left neural foraminal stenosis. At L4-L5 there is a disc bulge combined with facet arthrosis and dorsal epidural fat hypertrophy contributing to moderate spinal canal stenosis and neural foraminal stenoses. There are multilevel neural foraminal stenoses throughout the lumbar spine. Neurology follows for restless legs, not for back pain. PM&R and Pain Management consults appreciated Plan Trigger injections by Dr. White discussed with him Home versus SNU, Dr. White's preference Dr. Garcia will stay in background, patient can visit him as outpatient Rehabilitation modalities Tizanidine Discharge today Subjective Back pain 09/15 Objective Vital Signs Date Time Temp Pulse Resp B/P (MAP) Pulse Ox O2 Delivery O2 Flow Rate FiO2 07/10/19 08:20 56 136/71 07/10/19 08:00 Room Air 07/10/19 07:00 97.5 17 92 97.5 Intake and Output 07/10/19 07:00 Intake Total 180 ml Output Total 720 ml Balance -540 ml Intake Oral 180 ml Output Urine Total 720 ml PHYSICAL EXAM Alert. Oriented to time, place and person. PERRL. EOMI. CN: no focal findings. Muscle tone: normal. Muscle strength: 5/5 DTR: 2+ Plantar reflex: flexor Gait: not examined in bed. Sensory exam: no abnormal findings. No cerebellar signs elicited. Review of Relevant I have reviewed the following items yee (where applicable) has been applied. Labs Laboratory Tests Test 07/08/19 11:41 07/08/19 16:14 07/08/19 21:15 07/09/19 07:35 Glucose (Fingerstick) 225 mg/dL (70-99) 152 mg/dL (70-99) 185 mg/dL (70-99) 126 mg/dL (70-99) Test 07/09/19 11:36 07/09/19 16:33 07/09/19 20:21 07/10/19 04:20 Glucose (Fingerstick) 125 mg/dL (70-99) 150 mg/dL (70-99) 139 mg/dL (70-99) White Blood Count 7.4 x10^3/uL (4.0-11.0) Red Blood Count 4.70 x10^6/uL (4.30-5.70) Hemoglobin 14.1 g/dL (13.0-17.5) Hematocrit 42.0 % (39.0-53.0) Mean Corpuscular Volume 90 fL (79-100) Mean Corpuscular Hemoglobin 30 pg (25-35) Mean Corpuscular Hemoglobin Concent 34 g/dL (31-37) Red Cell Distribution Width 14.8 % (11.5-14.5) Platelet Count 270 x10^3/uL (140-400) Neutrophils (%) (Auto) 60 % (31-73) Lymphocytes (%) (Auto) 27 % (24-48) Monocytes (%) (Auto) 7 % (0-9) Eosinophils (%) (Auto) 5 % (0-3) Basophils (%) (Auto) 1 % (0-3) Neutrophils # (Auto) 4.5 x10^3/uL (1.8-7.7) Lymphocytes # (Auto) 2.0 x10^3/uL (1.0-4.8) Monocytes # (Auto) 0.5 x10^3/uL (0.0-1.1) Eosinophils # (Auto) 0.3 x10^3/uL (0.0-0.7) Basophils # (Auto) 0.0 x10^3/uL (0.0-0.2) Sodium Level 140 mmol/L (136-145) Potassium Level 4.0 mmol/L (3.5-5.1) Chloride Level 103 mmol/L (98-107) Carbon Dioxide Level 27 mmol/L (21-32) Anion Gap 10 (6-14) Blood Urea Nitrogen 20 mg/dL (8-26) Creatinine 1.1 mg/dL (0.7-1.3) Estimated GFR (Cockcroft-Gault) 66.6 Glucose Level 140 mg/dL (70-99) Calcium Level 8.1 mg/dL (8.5-10.1) Test 07/10/19 07:09 Glucose (Fingerstick) 128 mg/dL (70-99) Laboratory Tests Test 07/09/19 11:36 07/09/19 16:33 07/09/19 20:21 07/10/19 04:20 Glucose (Fingerstick) 125 mg/dL (70-99) 150 mg/dL (70-99) 139 mg/dL (70-99) White Blood Count 7.4 x10^3/uL (4.0-11.0) Red Blood Count 4.70 x10^6/uL (4.30-5.70) Hemoglobin 14.1 g/dL (13.0-17.5) Hematocrit 42.0 % (39.0-53.0) Mean Corpuscular Volume 90 fL (79-100) Mean Corpuscular Hemoglobin 30 pg (25-35) Mean Corpuscular Hemoglobin Concent 34 g/dL (31-37) Red Cell Distribution Width 14.8 % (11.5-14.5) Platelet Count 270 x10^3/uL (140-400) Neutrophils (%) (Auto) 60 % (31-73) Lymphocytes (%) (Auto) 27 % (24-48) Monocytes (%) (Auto) 7 % (0-9) Eosinophils (%) (Auto) 5 % (0-3) Basophils (%) (Auto) 1 % (0-3) Neutrophils # (Auto) 4.5 x10^3/uL (1.8-7.7) Lymphocytes # (Auto) 2.0 x10^3/uL (1.0-4.8) Monocytes # (Auto) 0.5 x10^3/uL (0.0-1.1) Eosinophils # (Auto) 0.3 x10^3/uL (0.0-0.7) Basophils # (Auto) 0.0 x10^3/uL (0.0-0.2) Sodium Level 140 mmol/L (136-145) Potassium Level 4.0 mmol/L (3.5-5.1) Chloride Level 103 mmol/L (98-107) Carbon Dioxide Level 27 mmol/L (21-32) Anion Gap 10 (6-14) Blood Urea Nitrogen 20 mg/dL (8-26) Creatinine 1.1 mg/dL (0.7-1.3) Estimated GFR (Cockcroft-Gault) 66.6 Glucose Level 140 mg/dL (70-99) Calcium Level 8.1 mg/dL (8.5-10.1) Test 07/10/19 07:09 Glucose (Fingerstick) 128 mg/dL (70-99) Medications Current Medications Orphenadrine Citrate (Norflex) 60 mg 1X ONCE IM Last administered on 07/07/19at 16:16; Start 07/07/19 at 16:15; Stop 07/07/19 at 16:16; Status DC Fentanyl Citrate (Fentanyl 2ml Vial) 50 mcg 1X ONCE IVP Last administered on 07/07/19at 16:29; Start 07/07/19 at 16:15; Stop 07/07/19 at 16:16; Status DC Methylprednisolone Sodium Succinate (SOLU-Medrol 125MG VIAL) 125 mg 1X ONCE IV Last administered on 07/07/19at 17:36; Start 07/07/19 at 18:00; Stop 07/07/19 at 18:01; Status DC Morphine Sulfate (Morphine Sulfate) 4 mg 1X ONCE IV Last administered on 07/07/19at 18:22; Start 07/07/19 at 18:45; Stop 07/07/19 at 18:46; Status DC Ondansetron HCl (Zofran) 4 mg PRN Q8HRS PRN IV NAUSEA/VOMITING; Start 07/07/19 at 18:30; Stop 07/07/19 at 22:04; Status DC Morphine Sulfate (Morphine Sulfate) 2 mg PRN Q2HRS PRN IV PAIN; Start 07/07/19 at 18:30; Stop 07/07/19 at 18:56; Status DC Ketorolac Tromethamine (Toradol 30mg Vial) 30 mg 1X ONCE IVP Last administered on 07/07/19at 19:02; Start 07/07/19 at 19:30; Stop 07/07/19 at 19:31; Status DC Fentanyl Citrate (Fentanyl 2ml Vial) 50 mcg PRN Q2HR PRN IVP PAIN Last admi nistered on 07/09/19at 09:19; Start 07/07/19 at 19:00 Ondansetron HCl (Zofran) 4 mg PRN Q4HRS PRN IV NAUSEA/VOMITING; Start 07/07/19 at 22:00 Potassium Chloride/Water 100 ml @ 100 mls/hr Q1H IV Last administered on 07/08/19at 00:50; Start 07/07/19 at 22:15; Stop 07/08/19 at 00:14; Status DC Potassium Chloride (Klor-Con) 40 meq 1X ONCE PO Last administered on 07/07/19at 23:25; Start 07/07/19 at 22:15; Stop 07/07/19 at 22:16; Status DC Enoxaparin Sodium (Lovenox 40mg Syringe) 40 mg Q24H SQ Last administered on 07/09/19at 20:21; Start 07/07/19 at 22:00 Insulin Human Lispro (HumaLOG) 0-7 UNITS TIDACHC SQ Last administered on 07/08/19at 17:03; Start 07/08/19 at 07:30 Dextrose (Dextrose 50%-Water Syringe) 12.5 gm PRN Q15MIN PRN IV SEE COMMENTS; Start 07/07/19 at 22:00 Acetaminophen (Tylenol) 650 mg PRN Q6HRS PRN PO MILD PAIN / TEMP > 100.3'F; Start 07/07/19 at 22:00 Amlodipine Besylate (Norvasc) 10 mg DAILY PO Last administered on 07/10/19at 08:20; Start 07/08/19 at 09:00 Aspirin (Aspirin Chewable) 81 mg DAILYWBKFT PO Last administered on 07/10/19at 08:16; Start 07/08/19 at 08:00 Ferrous Sulfate (Feosol) 325 mg DAILY PO Last administered on 07/10/19at 08:17; Start 07/08/19 at 09:00 Pramipexole Dihydrochloride (miraPEX) 1 mg HS PO ; Start 07/07/19 at 22:30; Stop 07/07/19 at 22:19; Status DC Trazodone HCl (Desyrel) 50 mg QHS PO Last administered on 07/09/19at 20:22; Start 07/07/19 at 22:30 Vitamin D (Vitamin D3) 4,000 unit DAILY PO Last administered on 07/10/19at 08:16; Start 07/08/19 at 09:00 Fluoxetine HCl (PROzac) 40 mg HS PO Last administered on 07/09/19at 20:22; Start 07/07/19 at 22:30 Gabapentin (Neurontin) 600 mg TID PO Last administered on 07/10/19 08:16; Start 07/07/19 at 22:30 Losartan Potassium (Cozaar) 100 mg DAILY PO Last administered on 07/09/19at 09:19; Start 07/08/19 at 09:00 Metoprolol Succinate (Toprol Xl) 50 mg DAILY PO Last administered on 07/10/19 08:17; Start 07/08/19 at 09:00 Fish Oil (Fish Oil) 1,000 mg BID PO Last administered on 07/10/19 08:17; Start 07/07/19 at 22:30 Pantoprazole Sodium (Protonix) 40 mg DAILYAC PO Last administered on 07/10/19 06:14; Start 07/08/19 at 07:30 Vitamin B Complex (Folbic Tablet) 1 tab BID PO Last administered on 07/10/19 08:16; Start 07/07/19 at 22:30 Pramipexole Dihydrochloride (miraPEX) 1 mg HS PO Last administered on 07/09/19at 20:22; Start 07/07/19 at 22:30 Tizanidine HCl (Zanaflex) 4 mg Q8HRS PO Last administered on 07/10/19at 06:14; Start 07/08/19 at 09:30 Methylprednisolone Acetate (DEPO-Medrol 40MG VIAL) 40 mg 1X ONCE IM ; Start 07/08/19 at 10:00; Stop 07/08/19 at 10:01; Status DC Bupivacaine HCl (Sensorcaine-Mpf 0.25%) 10 ml 1X ONCE IJ ; Start 07/08/19 at 10:00; Stop 07/08/19 at 10:01; Status DC Magnesium Hydroxide (Milk Of Magnesia) 2,400 mg 1X ONCE PO Last administered on 07/09/19at 17:34; Start 07/09/19 at 16:45; Stop 07/09/19 at 16:46; Status DC Docusate Sodium (Colace) 100 mg BID PO Last administered on 07/10/19 08:17; Start 07/09/19 at 21:00 Active Scripts Active Reported Fluoxetine Hcl 40 Mg Capsule 1 Cap PO HS Vitamin D (Cholecalciferol (Vitamin D3)) 2,000 Unit Capsule 4,000 Unit PO DAILY Mirapex (Pramipexole Di-Hcl) 0.25 Mg Tablet 1 Mg PO HS Vitamin B Complex 1 Each Capsule 1 Each PO BID Requip (Ropinirole Hcl) 1 Mg Tablet 2 Tab PO QHS Protonix (Pantoprazole Sodium) 20 Mg Tablet.dr 40 Mg PO DAILY Aspirin 81 Mg Tab.chew 1 Tab PO DAILY Trazodone Hcl 50 Mg Tablet 1 Tab PO QHS Norvasc (Amlodipine Besylate) 5 Mg Tablet 10 Mg PO DAILY Iron Supplement (Ferrous Sulfate) 325 Mg Tablet 65 Mg PO DAILY Metformin Hcl 1,000 Mg Tablet 1,000 Mg PO BID Fish Oil + D3 Softgel ([place]-3S/Dha/Epa/Fish Oil/D3) 1 Each Capsule 1 Each PO BID Losartan Potassium 100 Mg Tablet 100 Mg PO DAILY Gabapentin 600 Mg Tablet 600 Mg PO TID Centrum Silver Ultra Men's Tab (Multivitamin W-Minerals/Lutein) 1 Each Tablet 1 Each PO Toprol Xl (Metoprolol Succinate) 50 Mg Tab.er.24h 50 Mg PO DAILY Vitals/I & O Vital Sign - Last 24 Hours 07/09/19 07/09/19 07/09/19 07/09/19 10:53 11:00 15:00 19:00 Temp 97.9 98.0 97.9 97.9 98.0 97.9 Pulse 59 17 59 Resp 17 18 B/P (MAP) 114/59 (77) 124/65 (84) 124/76 (92) Pulse Ox 94 94 96 O2 Delivery Room Air Room Air Room Air Room Air 07/09/19 07/09/19 07/10/19 07/10/19 20:00 22:25 03:06 07:00 Temp 97.7 97.4 97.5 97.7 97.4 97.5 Pulse 60 57 56 Resp 16 18 17 B/P (MAP) 146/82 (103) 162/80 (107) 136/71 (92) Pulse Ox 96 96 92 O2 Delivery Room Air Room Air Room Air Room Air 07/10/19 07/10/19 07/10/19 08:00 08:17 08:20 Pulse 56 56 B/P (MAP) 136/71 136/71 O2 Delivery Room Air Intake and Output 6/2/20 6/2/20 6/3/20 15:00 23:00 07:00 Intake Total 180 ml Output Total 320 ml 400 ml Balance -320 ml -220 ml Justicifation of Admission Dx: Justifications for Admission: Justification of Admission Dx: Yes TYLER HURD MD Jul 10, 2019 10:00
[2019-07-10 10:37] VITALS: BP 140/74
[2019-07-10] MEDS: fentaNYL PF VIAL 100 MCG/2 ML VIAL IVP PRN (11:12)
[2019-07-10 11:16] VITALS: BP 140/74
[2019-07-10] MEDS: LOSARTAN POTASSIUM 50 MG TABLET. PO SCH (11:16)
--- NOTE | 2019-07-10 12:34 | PDOC3 ---
Discharge Summary Date of Admission: Jul 08, 2019 Date of Discharge: Jul 10, 2019 Follow-Up: 1-2 days Admitting Diagnosis comment: DISCHARGE DX Assessment/Plan Impression: Intractable low back pain, pain better today with brace Lumbar disc disease and facet arthrosis. At L2-L3 there is a left foraminal and lateral broad-based disc protrusion contributing to mild spinal canal stenosis and moderate-severe left neural foraminal stenosis. At L4-L5 there is a disc bulge combined with facet arthrosis and dorsal epidural fat hypertrophy contributing to moderate spinal canal stenosis and neural foraminal stenoses. moderate central canal stenosis at L2-L3 and mild central canal narrowing at L3-L4. Central disc protrusion at L4-L5 mildly flattening the ventral thecal sac gait instability Morbid obesity ADMITTED Trial of tizanidine Lumbar MRI neurology consult rehab consult DR duarte agrees with d/c today consult sabra el mgt OUT PT D/W RN Treatment Plan * Therapeutic Exercise * Gait Training Frequency of Treatment Expected * 7 visits/week Duration of Treatment Expected * 2 weeks Discharge Recommendations * Home with outpatient Justicifation of Admission Dx: Justicifation of Admission Dx: Justifications for Admission: Justification of Admission Dx: Yes Comments: INTRACTABLE PAIN, UNABLE TO SAFELY AMBULATE on admit D/C PLANNING 27 MIN Vitals Vitals Vital Signs Date Time Temp Pulse Resp B/P (MAP) Pulse Ox O2 Delivery O2 Flow Rate FiO2 07/10/19 08:20 56 136/71 07/10/19 08:00 Room Air 07/10/19 07:00 97.5 17 92 97.5 Physical Exam General: Alert, Oriented X3, Cooperative, No acute distress Heart: Regular rate Lungs: Clear Abdomen: Normal bowel sounds, Soft, No tenderness Extremities: No clubbing, No cyanosis, No edema Skin: No significant lesion FINAL DIAGNOSIS Problems Medical Problems: (1) Intractable low back pain Status: Acute Brief Hospital Course Mr. Anaya is a 69 old [sex] who presented with [ intractable low back pain ] CONDITION AT DISCHARGE: Improved Discharge Medications Current Medications Orphenadrine Citrate (Norflex) 60 mg 1X ONCE IM Last administered on 07/07/19at 16:16; Start 07/07/19 at 16:15; Stop 07/07/19 at 16:16; Status DC Fentanyl Citrate (Fentanyl 2ml Vial) 50 mcg 1X ONCE IVP Last administered on 07/07/19at 16:29; Start 07/07/19 at 16:15; Stop 07/07/19 at 16:16; Status DC Methylprednisolone Sodium Succinate (SOLU-Medrol 125MG VIAL) 125 mg 1X ONCE IV Last administered on 07/07/19at 17:36; Start 07/07/19 at 18:00; Stop 07/07/19 at 18:01; Status DC Morphine Sulfate (Morphine Sulfate) 4 mg 1X ONCE IV Last administered on 07/07/19at 18:22; Start 07/07/19 at 18:45; Stop 07/07/19 at 18:46; Status DC Ondansetron HCl (Zofran) 4 mg PRN Q8HRS PRN IV NAUSEA/VOMITING; Start 07/07/19 at 18:30; Stop 07/07/19 at 22:04; Status DC Morphine Sulfate (Morphine Sulfate) 2 mg PRN Q2HRS PRN IV PAIN; Start 07/07/19 at 18:30; Stop 07/07/19 at 18:56; Status DC Ketorolac Tromethamine (Toradol 30mg Vial) 30 mg 1X ONCE IVP Last administered on 07/07/19at 19:02; Start 07/07/19 at 19:30; Stop 07/07/19 at 19:31; Status DC Fentanyl Citrate (Fentanyl 2ml Vial) 50 mcg PRN Q2HR PRN IVP PAIN Last administered on 07/10/19at 11:12; Start 07/07/19 at 19:00 Ondansetron HCl (Zofran) 4 mg PRN Q4HRS PRN IV NAUSEA/VOMITING; Start 07/07/19 at 22:00 Potassium Chloride/Water 100 ml @ 100 mls/hr Q1H IV Last administered on 07/08/19at 00:50; Start 07/07/19 at 22:15; Stop 07/08/19 at 00:14; Status DC Potassium Chloride (Klor-Con) 40 meq 1X ONCE PO Last administered on 07/07/19at 23:25; Start 07/07/19 at 22:15; Stop 07/07/19 at 22:16; Status DC Enoxaparin Sodium (Lovenox 40mg Syringe) 40 mg Q24H SQ Last administered on 07/09/19 20:21; Start 07/07/19 at 22:00 Insulin Human Lispro (HumaLOG) 0-7 UNITS TIDACHC SQ Last administered on 07/10/19 12:17; Start 07/08/19 at 07:30 Dextrose (Dextrose 50%-Water Syringe) 12.5 gm PRN Q15MIN PRN IV SEE COMMENTS; Start 07/07/19 at 22:00 Acetaminophen (Tylenol) 650 mg PRN Q6HRS PRN PO MILD PAIN / TEMP > 100.3'F; Start 07/07/19 at 22:00 Amlodipine Besylate (Norvasc) 10 mg DAILY PO Last administered on 07/10/19 08:20; Start 07/08/19 at 09:00 Aspirin (Aspirin Chewable) 81 mg DAILYWBKFT PO Last administered on 07/10/19 08:16; Start 07/08/19 at 08:00 Ferrous Sulfate (Feosol) 325 mg DAILY PO Last administered on 07/10/19 08:17; Start 07/08/19 at 09:00 Pramipexole Dihydrochloride (miraPEX) 1 mg HS PO ; Start 07/07/19 at 22:30; Stop 07/07/19 at 22:19; Status DC Trazodone HCl (Desyrel) 50 mg QHS PO Last administered on 07/09/19 20:22; Start 07/07/19 at 22:30 Vitamin D (Vitamin D3) 4,000 unit DAILY PO Last administered on 07/10/19 08:16; Start 07/08/19 at 09:00 Fluoxetine HCl (PROzac) 40 mg HS PO Last administered on 07/09/19 20:22; Start 07/07/19 at 22:30 Gabapentin (Neurontin) 600 mg TID PO Last administered on 07/10/19 08:16; Start 07/07/19 at 22:30 Losartan Potassium (Cozaar) 100 mg DAILY PO Last administered on 07/10/19 11:16; Start 07/08/19 at 09:00 Metoprolol Succinate (Toprol Xl) 50 mg DAILY PO Last administered on 07/10/19 08:17; Start 07/08/19 at 09:00 Fish Oil (Fish Oil) 1,000 mg BID PO Last administered on 07/10/19 08:17; Start 07/07/19 at 22:30 Pantoprazole Sodium (Protonix) 40 mg DAILYAC PO Last administered on 07/10/19at 06:14; Start 07/08/19 at 07:30 Vitamin B Complex (Folbic Tablet) 1 tab BID PO Last administered on 07/10/19at 08:16; Start 07/07/19 at 22:30 Pramipexole Dihydrochloride (miraPEX) 1 mg HS PO Last administered on 07/09/19at 20:22; Start 07/07/19 at 22:30 Tizanidine HCl (Zanaflex) 4 mg Q8HRS PO Last administered on 07/10/19at 06:14; Start 07/08/19 at 09:30 Methylprednisolone Acetate (DEPO-Medrol 40MG VIAL) 40 mg 1X ONCE IM ; Start 07/08/19 at 10:00; Stop 07/08/19 at 10:01; Status DC Bupivacaine HCl (Sensorcaine-Mpf 0.25%) 10 ml 1X ONCE IJ ; Start 07/08/19 at 10:00; Stop 07/08/19 at 10:01; Status DC Magnesium Hydroxide (Milk Of Magnesia) 2,400 mg 1X ONCE PO Last administered on 07/09/19at 17:34; Start 07/09/19 at 16:45; Stop 07/09/19 at 16:46; Status DC Docusate Sodium (Colace) 100 mg BID PO Last administered on 07/10/19at 08:17; Start 07/09/19 at 21:00 Active Scripts Active Reported Fluoxetine Hcl 40 Mg Capsule 1 Cap PO HS Vitamin D (Cholecalciferol (Vitamin D3)) 2,000 Unit Capsule 4,000 Unit PO DAILY Mirapex (Pramipexole Di-Hcl) 0.25 Mg Tablet 1 Mg PO HS Vitamin B Complex 1 Each Capsule 1 Each PO BID Requip (Ropinirole Hcl) 1 Mg Tablet 2 Tab PO QHS Protonix (Pantoprazole Sodium) 20 Mg Tablet.dr 40 Mg PO DAILY Aspirin 81 Mg Tab.chew 1 Tab PO DAILY Trazodone Hcl 50 Mg Tablet 1 Tab PO QHS Norvasc (Amlodipine Besylate) 5 Mg Tablet 10 Mg PO DAILY Iron Supplement (Ferrous Sulfate) 325 Mg Tablet 65 Mg PO DAILY Metformin Hcl 1,000 Mg Tablet 1,000 Mg PO BID Fish Oil + D3 Softgel ([place]-3S/Dha/Epa/Fish Oil/D3) 1 Each Capsule 1 Each PO BID Losartan Potassium 100 Mg Tablet 100 Mg PO DAILY Gabapentin 600 Mg Tablet 600 Mg PO TID Centrum Silver Ultra Men's Tab (Multivitamin W-Minerals/Lutein) 1 Each Tablet 1 Each PO Toprol Xl (Metoprolol Succinate) 50 Mg Tab.er.24h 50 Mg PO DAILY Vital Signs Vital Signs Date Time Temp Pulse Resp B/P (MAP) Pulse Ox O2 Delivery O2 Flow Rate FiO2 07/10/19 11:16 60 140/74 07/10/19 11:12 16 07/10/19 10:37 97.7 93 Room Air 97.7 Labs Laboratory Tests Test 07/08/19 16:14 07/08/19 21:15 07/09/19 07:35 07/09/19 11:36 Glucose (Fingerstick) 152 mg/dL (70-99) 185 mg/dL (70-99) 126 mg/dL (70-99) 125 mg/dL (70-99) Test 07/09/19 16:33 07/09/19 20:21 07/10/19 04:20 07/10/19 07:09 Glucose (Fingerstick) 150 mg/dL (70-99) 139 mg/dL (70-99) 128 mg/dL (70-99) White Blood Count 7.4 x10^3/uL (4.0-11.0) Red Blood Count 4.70 x10^6/uL (4.30-5.70) Hemoglobin 14.1 g/dL (13.0-17.5) Hematocrit 42.0 % (39.0-53.0) Mean Corpuscular Volume 90 fL (79-100) Mean Corpuscular Hemoglobin 30 pg (25-35) Mean Corpuscular Hemoglobin Concent 34 g/dL (31-37) Red Cell Distribution Width 14.8 % (11.5-14.5) Platelet Count 270 x10^3/uL (140-400) Neutrophils (%) (Auto) 60 % (31-73) Lymphocytes (%) (Auto) 27 % (24-48) Monocytes (%) (Auto) 7 % (0-9) Eosinophils (%) (Auto) 5 % (0-3) Basophils (%) (Auto) 1 % (0-3) Neutrophils # (Auto) 4.5 x10^3/uL (1.8-7.7) Lymphocytes # (Auto) 2.0 x10^3/uL (1.0-4.8) Monocytes # (Auto) 0.5 x10^3/uL (0.0-1.1) Eosinophils # (Auto) 0.3 x10^3/uL (0.0-0.7) Basophils # (Auto) 0.0 x10^3/uL (0.0-0.2) Sodium Level 140 mmol/L (136-145) Potassium Level 4.0 mmol/L (3.5-5.1) Chloride Level 103 mmol/L (98-107) Carbon Dioxide Level 27 mmol/L (21-32) Anion Gap 10 (6-14) Blood Urea Nitrogen 20 mg/dL (8-26) Creatinine 1.1 mg/dL (0.7-1.3) Estimated GFR (Cockcroft-Gault) 66.6 Glucose Level 140 mg/dL (70-99) Calcium Level 8.1 mg/dL (8.5-10.1) Test 07/10/19 11:18 Glucose (Fingerstick) 182 mg/dL (70-99) Laboratory Tests Test 07/09/19 16:33 07/09/19 20:21 07/10/19 04:20 07/10/19 07:09 Glucose (Fingerstick) 150 mg/dL (70-99) 139 mg/dL (70-99) 128 mg/dL (70-99) White Blood Count 7.4 x10^3/uL (4.0-11.0) Red Blood Count 4.70 x10^6/uL (4.30-5.70) Hemoglobin 14.1 g/dL (13.0-17.5) Hematocrit 42.0 % (39.0-53.0) Mean Corpuscular Volume 90 fL (79-100) Mean Corpuscular Hemoglobin 30 pg (25-35) Mean Corpuscular Hemoglobin Concent 34 g/dL (31-37) Red Cell Distribution Width 14.8 % (11.5-14.5) Platelet Count 270 x10^3/uL (140-400) Neutrophils (%) (Auto) 60 % (31-73) Lymphocytes (%) (Auto) 27 % (24-48) Monocytes (%) (Auto) 7 % (0-9) Eosinophils (%) (Auto) 5 % (0-3) Basophils (%) (Auto) 1 % (0-3) Neutrophils # (Auto) 4.5 x10^3/uL (1.8-7.7) Lymphocytes # (Auto) 2.0 x10^3/uL (1.0-4.8) Monocytes # (Auto) 0.5 x10^3/uL (0.0-1.1) Eosinophils # (Auto) 0.3 x10^3/uL (0.0-0.7) Basophils # (Auto) 0.0 x10^3/uL (0.0-0.2) Sodium Level 140 mmol/L (136-145) Potassium Level 4.0 mmol/L (3.5-5.1) Chloride Level 103 mmol/L (98-107) Carbon Dioxide Level 27 mmol/L (21-32) Anion Gap 10 (6-14) Blood Urea Nitrogen 20 mg/dL (8-26) Creatinine 1.1 mg/dL (0.7-1.3) Estimated GFR (Cockcroft-Gault) 66.6 Glucose Level 140 mg/dL (70-99) Calcium Level 8.1 mg/dL (8.5-10.1) Test 07/10/19 11:18 Glucose (Fingerstick) 182 mg/dL (70-99) Allergies Allergies Coded Allergies Type Severity Reaction Last Updated Verified amoxicillin Adverse Reaction Intermediate Nausea/Vomiting, GI upset 10/24/13 Yes Disposition/Orders: D/C to Home w/ HH Justicifation of Admission Dx: Justifications for Admission: Justification of Admission Dx: Yes MONICA TRUJILLO MD Jul 10, 2019 12:34
[2019-07-10] MEDS ORDERED: OXYC1TAB15 PO (12:38)
[2019-07-10] MEDS ORDERED: ACET325T9 PO (12:38)
[2019-07-10] MEDS ORDERED: DOCU-153 PO (12:38)
[2019-07-10] MEDS ORDERED: TIZA4TAB2 PO (12:38)
--- NOTE | 2019-07-10 12:40 | SNU/HH DC ---
DISCHARGE WITH HOME HEALTH DISCHARGE INFORMATION: Discharge Date: Jul 10, 2019 Final Diagnosis: Problems Medical Problems: (1) Intractable low back pain Status: Acute Condition on Discharge: Stable CODE STATUS: Code Status: Full HOME HEALTH: Face to Face: I certify this patient is under my care and that I, or a nurse practitioner or physician's assistant buyer working with me, had a face to face encounter that meets t he physician face to face encounter requirements with this patient on []. Medical Complications: DJD, Other (intractable low back pain) Fpc For: Assess & Educate Safety, Assess/Skilled Observatio, Pain Management RN For Eval/Treatment: Yes Physical Therapy For: Evalulation/Treatment Occupational Therapy For: Evaluation/Treatment Speech Language Pathology For: Evaluation/Treatment Home Health Aide For: Self-care OIL REFINER For: Community Resources Pt Meets Homebound Status: Fatigue w/ amb., Limited distance walking POST DISCHARGE ORDERS: Activity Instructions for Disc: Activity as tolerated Weight Bearing Status after Di: As tolerated DIET AFTER DISCHARGE: ADA Wound/Incision Care: Change dressing CHECKS AFTER DISCHARGE: Checks after discharge: Check blood press - daily TREATMENT/EQUIPMENT ORDERS: Adaptive Equipment Issued: Front wheeled walker CERTIFICATION STATEMENT: Certification Statement: Certification Statement: Based on the above finding, I certify that this patient is confined to the home and needs intermittent half-way care, physical therapy and/or speech therapy, or continues to need occupational therapy.~ This patient is under my care, and I have initiated the establishment of the plan of care.~ This patient will be followed by myself or a community physician who will periodically review the plan of care. Home Meds Active Scripts Oxycodone/Apap 5-325 (PERCOCET 5-325 MG TABLET ) 1 Each Tablet, 1 TAB PO QIDPRN PRN for SEVERE PAIN 7-10 MDD 4 Tablet(s) for 7 Days, #30 TAB 0 Refills Prov:MONICA TRUJILLO MD 07/10/19 Docusate Sodium (DOK) 100 Mg Capsule, 100 MG PO BID for prevent hard stools for 30 Days, #60 CAP Prov:MONICA TRUJILLO MD 07/10/19 Acetaminophen (TYLENOL) 325 Mg Tablet, 650 MG PO PRN Q6HRS PRN for MILD PAIN / TEMP > 100.3'F for 30 Days, #90 TAB Prov:MONICA TRUJILLO MD 07/10/19 Tizanidine Hcl (TIZANIDINE HCL) 4 Mg Tablet, 4 MG PO Q8HRS for back muscle spasm for 10 Days, #30 TAB Prov:MONICA TRUJILLO MD 07/10/19 Reported Medications Fluoxetine Hcl (FLUOXETINE HCL) 40 Mg Capsule, 1 CAP PO HS for rx, #30 CAP 2 Refills 01/19/18 Cholecalciferol (Vitamin D3) (VITAMIN D) 2,000 Unit Capsule, 4000 UNIT PO DAILY for supp, CAP 01/19/18 Vitamin B Complex (VITAMIN B COMPLEX) 1 Each Capsule, 1 EACH PO BID for supp, CAP 01/19/18 Ropinirole Hcl (REQUIP) 1 Mg Tablet, 2 TAB PO QHS for restless legs, #30 TAB 2 Refills 01/19/18 Pantoprazole Sodium (PROTONIX) 20 Mg Tablet.dr, 40 MG PO DAILY for gerd, TAB 01/19/18 Aspirin (ASPIRIN) 81 Mg Tab.chew, 1 TAB PO DAILY for rx, #30 TAB 3 Refills 01/19/18 Trazodone Hcl (TRAZODONE HCL) 50 Mg Tablet, 1 TAB PO QHS for insomnia, #30 TAB 1 Refill 01/19/18 Amlodipine Besylate (NORVASC) 5 Mg Tablet, 10 MG PO DAILY for htn, TAB 10/29/13 Ferrous Sulfate (IRON SUPPLEMENT) 325 Mg Tablet, 65 MG PO DAILY for supp 10/29/13 Metformin Hcl (METFORMIN HCL) 1,000 Mg Tablet, 1000 MG PO BID for ANTI-DIABETIC, TAB 0 Refills 10/24/13 [place]-3S/Dha/Epa/Fish Oil/D3 (FISH OIL + D3 SOFTGEL) 1 Each Capsule, 1 EACH PO BID 10/24/13 Losartan Potassium (LOSARTAN POTASSIUM) 100 Mg Tablet, 100 MG PO DAILY, TAB 10/24/13 Gabapentin (GABAPENTIN) 600 Mg Tablet, 600 MG PO TID, CAP 10/24/13 Multivitamin W-Minerals/Lutein (CENTRUM SILVER ULTRA MEN'S TAB) 1 Each Tablet, 1 EACH PO 10/24/13 Metoprolol Succinate (TOPROL XL) 50 Mg Tab.er.24h, 50 MG PO DAILY for FOR HYPERTENSION, #30 TAB 0 Refills 10/24/13 Discontinued Reported Medications Pramipexole Di-Hcl (MIRAPEX) 0.25 Mg Tablet, 1 MG PO HS for restless legs, TAB 01/19/18 MONICA TRUJILLO MD Jul 10, 2019 12:40
--- NOTE | 2019-07-10 14:00 | NUR ---
DERICK following. Discussed with RN, pt discharging home today with home health. DERICK met with pt (no isolation precautions at the time), pt agreeable to home health, whoever takes his insurance. Pt choice of vendor signed by pt. DERICK faxed referral to [facility] - pt accepted. RN notified.
--- NOTE | 2019-07-10 15:00 | NUR ---
reviewed discharge instructions with yee.reviewed activities, home health with PT. instructed to use walker until released by therapist. wear abdominal binder when up and about. reviewed medications that he needs to take tonight and his pain medication. instructed to take stool softner with this and to have a bm at least every 3 days. personal belongings packed. saline lock dcd.
== END 2019-07-10 15:30 | disposition home health service (06) | DRG 552 ==
LOC: ER 15:59 → 4 NORTH 18:18
PROVIDERS: ADMIT Internal Medicine; ATTEND Internal Medicine
DX: M48.061 Spinal stenosis, lumbar region without neurogenic claudication (principal); E11.9 Type 2 diabetes mellitus without complications; M47.816 Spondylosis without myelopathy or radiculopathy, lumbar region; E66.01 Morbid (severe) obesity due to excess calories; E78.00 Pure hypercholesterolemia, unspecified; E78.5 Hyperlipidemia, unspecified; G25.81 Restless legs syndrome; G47.30 Sleep apnea, unspecified; G89.29 Other chronic pain; I10 Essential (primary) hypertension; I25.10 Atherosclerotic heart disease of native coronary artery without angina pectoris; K21.9 Gastro-esophageal reflux disease without esophagitis; M47.814 Spondylosis without myelopathy or radiculopathy, thoracic region; M51.26 Other intervertebral disc displacement, lumbar region; Z79.82 Long term (current) use of aspirin; Z82.49 Family history of ischemic heart disease and other diseases of the circulatory system; Z85.828 Personal history of other malignant neoplasm of skin; Z95.1 Presence of aortocoronary bypass graft; M54.9 Dorsalgia, unspecified
CPT/HCPCS: 36415; 72131; 72146; 72148; 80048; 80053; 81001; 82962; 83735; 85025; 86140; 96372; 96374; 96375; J1030; J1650; J1815; J1885; J2270; J2360; J2930; J3010; J3480; J3490; 97530-GP; 97535-GO; 99285-25; G0378

== ENCOUNTER → 2019-07-16 | Outpatient (CLI) | payer MEDICARE ==
[2019-07-10 11:16] VITALS: BP 140/74
[~2019-07-16] MED LIST changes: +ACET325T9 PO; +DOCU-153 PO; +OXYC1TAB15 PO; +TIZA4TAB2 PO
--- NOTE | 2019-07-16 12:18 | PAIN ---
DATE OF SERVICE: PROGRESS NOTE FOR PAIN CLINIC DIAGNOSES: 1. Lumbar radiculopathy with lumbar degenerative disk disease. 2. Cervical radiculopathy with cervical degenerative disk disease and cervical spondylosis. HISTORY OF PRESENT ILLNESS: The patient is a 69-year-old male who returns for followup status post most recently seen here for spinal cord stimulator temporary leads placement, which did well and about 75% improvement and for permanent implant he was denied coverage with his insurance provider, was not improved until he has been just getting along without it for the past year or so, this was 06/28/2018. We removed the temporary leads and schedule him for a permanent implant; however, the insurance does not cover it. The patient reports he has been doing fairly well, all things considered has been fairly immobile secondary to his back pain and left leg pain, but over the past few weeks, he was in the hospital. On 07/08/2019, after he has been riding mower and woke up Monday morning and had significant pain in his back and left leg. He was hospitalized with bed rest, oral medications and hydration. The patient had a sacroiliac joint injection from Dr. White which he reports helped about 10%. He was discharged with oxycodone and tizanidine and reports this is doing fairly well with about 40-50% removal of the pain, but still significant in the low back and left hip and leg. The patient reports that 10 on a scale of 10, its worst over the past week, 9 on average, 7 at its least and is a 9 today. The patient reports no new motor or sensory deficits, describes the pain as sharp and stabbing, constant, severe in the low back and left leg, mostly in the hip region, but not as much radiating to the lower leg, but into the thigh. The patient reports no new motor or sensory deficits or other complaints. PHYSICAL EXAMINATION: VITAL SIGNS: The patient's blood pressure 121/74, pulse 71, respirations 16, temperature 97.5 degrees Fahrenheit, weight is 195 pounds. GENERAL: The patient is awake, alert, oriented, appropriate, very pleasant demeanor. HEENT: Shows normocephalic, atraumatic. Extraocular movements are intact and symmetrical. Oral cavity: Mucous membranes moist and pink. Dentition is intact. NECK: Shows anterior throat supple. Swallow reflex symmetrical. CHEST: Shows normal on inspection. Breath sounds are clear. No rales, rhonchi or wheezes auscultated. HEART: Shows S1, S2 clear. ABDOMEN: Obese, soft, nontender, nondistended. BACK: Shows spine grossly in the midline. Normal appearing thoracic kyphosis and some minor flattening of lumbar lordotic curvature. Lumbar paraspinous muscle shows symmetrical on inspection, with palpation shows some moderate tenderness throughout the upper, middle and lower distribution of paraspinous muscles bilaterally without radiation. The patient shows no atrophy, hypertrophy, no trigger points. No tenderness over the spinous processes, sacrum or sacroiliac regions. EXTREMITIES: Lower extremities show deep tendon reflexes at 2+ patellar and 1+ tendo-calcaneus tendons. Motor exam is 5/5 with dorsiflexion, extension, equal. Peripheral pulses are 1+. No peripheral edema is noted. PLAN: Options were discussed with the patient. The patient's old chart was reviewed as her current medication regimen updated. Current review of systems updated today as well. We will have him try Medrol Dosepak as this may decrease his pain fairly significantly at least for the time being. The patient is agreeable to this. We did warn him about side effects, especially increased blood glucose. He will monitor this closely at home and if not significantly improved, we did discuss possibly revisiting spinal cord stimulation therapy as the patient did do fairly well with the temporary, wanted to get a preauthorization for a permanent implant. This may benefit him more significantly down the road. The patient agrees and will think about this. He is not sure that he wants to pursue this at this time. We will try the Medrol Dosepak first. The patient will continue with his other medications, oxycodone and tizanidine as prescribed and will follow up after Medrol Dosepak is completed. LEYDA OATES MD DR: KAE/kishor JOB#: [id number] / [id number]
== END ==
LOC: PNCL 10:46
PROVIDERS: ATTEND Anesthesiology
DX: M51.16 Intervertebral disc disorders with radiculopathy, lumbar region (principal); M50.10 Cervical disc disorder with radiculopathy, unspecified cervical region; M47.22 Other spondylosis with radiculopathy, cervical region
CPT/HCPCS: G0463

== ENCOUNTER → 2019-08-01 | Outpatient (CLI) | payer MEDICARE ==
[2019-07-10 11:16] VITALS: BP 140/74
[~2019-08-01] MED LIST changes: +LIDOCAINE 1% PF 2 ML VIAL. ONE
--- NOTE | 2019-08-02 03:53 | PAIN ---
DATE OF SERVICE: 08/01/2019 PROGRESS NOTE FOR PAIN CLINIC DIAGNOSES: 1. Lumbar radiculopathy with lumbar degenerative disk disease. 2. Cervical radiculopathy with cervical degenerative disk disease and cervical spondylosis. HISTORY OF PRESENT ILLNESS: The patient is a 69-year-old male who returns for followup status post previous spinal cord stimulator trial about 4 months ago. The patient had difficulty with insurance approval for a permanent placement and we had seen him on 07/15 with significant pain in the low back, nothing ever happened with the spinal cord stimulator permanent placement as it was denied by his insurance company. He has been simply suffering with the pain since that time in the low back, especially in the left lower extremity. The patient reports that 9 on a scale of 10 at its worst, 7 on average over the past week and 5 at its least over the past week and rates it as a 7 today. The patient reports it is sharp, stabbing, severe low back bilaterally into the lower extremities, mostly in the left side, posterior gluteus, posterolateral thigh and posterior calf. The patient reports it is worse with walking, standing, changing positions, He is using a walker to ambulate, has it with him today. The patient reports no new motor or sensory deficits, no new bowel or bladder incontinence. PHYSICAL EXAMINATION: VITAL SIGNS: The patient's blood pressure 135/69, pulse 73, respirations 16, temperature 98.5 degrees Fahrenheit, height is 5 feet 5 inches, and weight is 197 pounds. GENERAL: The patient is awake, alert, oriented, appropriate, very pleasant demeanor. HEENT: Shows normocephalic, atraumatic. Extraocular movements are intact and symmetrical. Oral cavity: Mucous membranes moist and pink. Dentition is intact. NECK: Shows anterior throat supple. Swallow reflex symmetrical. CHEST: Shows normal on inspection. Breath sounds are clear bilaterally. No rales, rhonchi or wheezes auscultated. HEART: Shows S1, S2 clear. No murmurs auscultated. ABDOMEN: Soft, nontender, and nondistended. BACK: Shows spine grossly in the midline. Normal appearing thoracic kyphosis and minor flattening of lumbar lordotic curvature. Lumbar paraspinous muscle shows symmetrical on inspection and palpation shows some moderate tenderness diffusely throughout the upper, middle and lower distribution of the paraspinous muscles, more on the left than the right in the lower distribution, but without radiation. The patient has good rotational motion of lumbar spine, however, both laterally greater than 10 degrees right and left as well as extension greater than 10 degrees, forward flexion 45 degrees without significant pain reported. EXTREMITIES: Lower extremities show deep tendon reflexes at 2+ in the patellar, 1+ tendo-calcaneus tendons. Motor exam is strong with 5/5 dorsiflexion, extension, quadriceps and hamstring flexion symmetrical. Peripheral pulses are 1+ posterior tibial. No peripheral edema bilaterally. Options were discussed with the patient. The patient's old chart was reviewed as his current medication regimen updated. Current review of systems updated today as well. We will proceed with a spinal cord stimulator temporary lead placement today x 2 with fluoroscopic guidance. Risks were discussed including but not limited to bleeding, infection, possibility of epidural hematoma, subsequent neurological compromise, dural puncture, headaches, spinal cord and/or nerve damage, exposure of fluoroscopy as well as poor results with a spinal cord stimulation. The patient understands and wished to proceed. The patient will return in approximately 1 week for followup. He was counseled as to return appointment, activity level and side effects to be aware of. DIAGNOSIS: Lumbar radiculopathy with lumbar degenerative disk disease. PROCEDURE: Spinal cord stimulator temporary lead placement x 2 using C-arm fluoroscopic guidance under sterile prep and drape using local anesthetic. MEDICATION INJECTED: Lidocaine 1% using 14-gauge styletted Hustead needle x 2. Epidural space was entered with preservative-free normal saline loss of resistance, without difficulty at the L2-L3 interspace under direct visualization and fluoroscopic view both AP and lateral views to assure posterior placement in the epidural space. Leads were advanced without resistance and without significant paresthesia to lie in the midline with the first lead superior electrode at the superior endplate of the T8 vertebral body. The second one was the superior electrode at the superior endplate of T9 vertebral body, both midline and posterior confirmed with lateral and AP views with fluoroscopy. [place] were removed, stylets were removed with intermittent fluoroscopy to check and verify no movement of the electrodes themselves. They were sutured in place using a 2-0 silk suture, sterile bandage was applied. CONDITION AT DISCHARGE: Stable. The patient tolerated the procedure well, had no complications. LEYDA OATES MD DR: KAE/kishor JOB#: [id number] / [id number]
== END | disposition home or self-care (01) ==
LOC: PNCL 12:33
PROVIDERS: ATTEND Anesthesiology
DX: M51.16 Intervertebral disc disorders with radiculopathy, lumbar region (principal); M50.10 Cervical disc disorder with radiculopathy, unspecified cervical region; M47.892 Other spondylosis, cervical region; I10 Essential (primary) hypertension; K21.9 Gastro-esophageal reflux disease without esophagitis; E11.9 Type 2 diabetes mellitus without complications; Z79.82 Long term (current) use of aspirin; Z79.899 Other long term (current) drug therapy; Z88.8 Allergy status to other drugs, medicaments and biological substances
CPT/HCPCS: 63650; C1897; J3490

== ENCOUNTER → 2019-08-08 | Outpatient (CLI) | payer MEDICARE ==
[2019-07-10 11:16] VITALS: BP 140/74
[~2019-08-08] MED LIST changes: -LIDOCAINE 1% PF 2 ML VIAL. ONE
--- NOTE | 2019-08-08 17:22 | PAIN ---
DATE OF SERVICE: 08/08/2019 PROGRESS NOTE FOR PAIN CLINIC DIAGNOSES: Lumbar radiculopathy with lumbar degenerative disk disease. HISTORY OF PRESENT ILLNESS: The patient 69-year-old male who returns for followup status post spinal cord stimulator temporary leads placement 1 week ago. Patient returns reporting about 80% improvement in his pain in his low back and lower extremities, also left greater than right lower extremity. The patient reports no new motor or sensory deficits. He is very pleased with increased activity with greater ease and comfort, sleeping better at night secondary to the pain. The patient reports his pain is a worsen as 6 on a scale of 10 last week, 4 on average and a 2 at its least and is a 2 today. The patient reports it is aching, sharp, and stabbing at times in the back, but again significantly reduced with the spinal cord stimulator. The patient reports he has been walking, driving a car, changing positions, climbing stairs as best to his ability and has been exercising, he has been very pleased with his progress. PHYSICAL EXAMINATION: VITAL SIGNS: The patient's blood pressure is 143/73, pulse is 76, respirations 18, temperature 98.6 degrees Fahrenheit, height is 5 feet 5 inches, weight is 198 pounds. GENERAL: The patient is awake, alert, oriented, appropriate, very pleasant demeanor. HEENT: Shows normocephalic, atraumatic. Extraocular movements are intact and symmetrical. Oral cavity: Mucous membranes moist and pink. Dentition is intact. NECK: Shows anterior throat supple without palpable lymphadenopathy noted. Swallow reflex symmetrical. CHEST: Shows normal on inspection. Breath sounds clear bilaterally. HEART: Shows S1, S2 clear. ABDOMEN: Soft, nontender. BACK: Shows spine grossly in midline. Lumbar paraspinous muscle shows symmetrical on inspection. The patient's bandages were taken down revealing the insertion and the spinal cord stimulator leads under sterile prep and drape. The sutures were removed and the wires were removed with tips intact x 2. Sites clean and dry, no erythema, no drainage, no tenderness. PLAN: Options were discussed with the patient. The patient's old chart was reviewed as his current medication regimen updated. Current review of systems updated today as well. We will make arrangements for a spinal cord stimulator permanent placement as the patient did very well with about 80% improvement over the past week with a temporary leads. The patient will follow up with any questions or concerns. In the meantime, we will make the arrangements for permanent placement. LEYDA OATES MD DR: KAE/kishor JOB#: [id number] / [id number]
== END | disposition home or self-care (01) ==
LOC: PNCL 10:16
PROVIDERS: ATTEND Anesthesiology
DX: M51.16 Intervertebral disc disorders with radiculopathy, lumbar region (principal); Z88.8 Allergy status to other drugs, medicaments and biological substances; Z79.82 Long term (current) use of aspirin; Z79.899 Other long term (current) drug therapy
CPT/HCPCS: G0463

== ENCOUNTER → 2019-11-12 | Outpatient (CLI) | payer MEDICARE ==
[~2019-11-12] MED LIST changes: +ATOR40TA59 PO; +FAMO20TA5 PO; +HYDR-2765 PO; +MELO15TA23 PO; +PRAM2.252 PO; +TRAM50TA PO
--- NOTE | 2019-11-14 14:28 | PDOC1 ---
INITIAL PAIN CONSULT DATE OF SERVICE: DOS: DATE: 11/14/19 TIME: 14:23 CHIEF COMPLAINT: Chief Complaint: Low back and bilateral lower extremity pain HISTORY OF PRESENT ILLNESS: 69-year-old male is post spinal cord stimulator temporary lead placement with excellent results about 80% improvement in the pain in his low back and lower extremities with greater mobility increased ease and comfort with walking stand ing changing positions sleeping better. Patient reports he did very well driving a car climbing stairs is very pleased with his relief afforded the spinal cord stimulator temporary system. Patient is scheduled for permanent placement on November 15, 2019. PAST MEDICAL HISTORY: PMH: Hearing loss diabetes type 2 shortness of breath hypertension sleep apnea hyperlipidemia arthritis basal cell carcinoma coronary artery disease coronary artery bypass grafting, carpal tunnel repair bilaterally, trigger finger release bilaterally, ganglion cystectomy PREVIOUS SURGERIES: Past Surgical Hx: coronary artery bypass grafting, carpal tunnel repair bilaterally, trigger finger release bilaterally, ganglion cystectomy CURRENT MEDICATIONS: Current Meds: Active Scripts Medications Dose Route/Sig Max Daily Dose Days Date Category Tramadol Hcl 50 Mg Tablet 50 Mg PO Q6HRS PRN 11/13/19 Reported Meloxicam 15 Mg Tablet 15 Mg PO DAILY PRN 11/13/19 Reported Famotidine 20 Mg Tablet 20 Mg PO HS 11/13/19 Reported Atorvastatin Calcium 40 Mg Tablet 40 Mg PO HS 11/13/19 Reported Pramipexole ER (Pramipexole Di-HCl) 2.25 Mg Tab.er.24h 1 Tab PO QHS 30 11/13/19 Reported Fluoxetine Hcl 40 Mg Capsule 1 Cap PO HS 01/19/18 Reported Vitamin D (Cholecalciferol (Vitamin D3)) 2,000 Unit Capsule 4,000 Unit PO DAILY 01/19/18 Reported Protonix (Pantoprazole Sodium) 20 Mg Tablet.dr 40 Mg PO DAILY 01/19/18 Reported Aspirin 81 Mg Tab.chew 1 Tab PO DAILY 01/19/18 Reported Norvasc (Amlodipine Besylate) 5 Mg Tablet 10 Mg PO DAILY 10/29/13 Reported Iron Supplement (Ferrous Sulfate) 325 Mg Tablet 65 Mg PO DAILY 10/29/13 Reported Metformin Hcl 1,000 Mg Tablet 1,000 Mg PO BID 10/24/13 Reported Fish Oil + D3 Softgel ([place]-3S/Dha/Epa/Fish Oil/D3) 1 Each Capsule 1 Each PO BID 9/18/14 Reported Losartan Potassium 100 Mg Tablet 100 Mg PO DAILY 10/24/13 Reported Gabapentin 600 Mg Tablet 600 Mg PO TID 10/24/13 Reported Centrum Silver Ultra Men's Tab (Multivitamin W-Minerals/Lutein) 1 Each Tablet 1 Each PO 10/24/13 Reported Toprol Xl (Metoprolol Succinate) 50 Mg Tab.er.24h 50 Mg PO DAILY 10/24/13 Reported ALLERGIES; Allergies: Coded Allergies: amoxicillin (Verified Adverse Reaction, Intermediate, Rash, 11/13/19) ORBITAL RASH FAMILY HISTORY: Family Hx: Heart disease SOCIAL HISTORY: Social Hx: Does not drink alcohol does not use any tobacco products denies any illegal illicit recreational drugs lives with his spouse locally in [facility] REVIEW OF SYSTEMS: ROS: Positive for those items mentioned in history of present illness, all systems are reviewed, otherwise negative, is complete full and well-documented on patient's chart PHYSICAL EXAM: VS: Blood pressure 143/75 pulse 77 respirations 18 temperature is 98.6 F height is 5 foot 5 weight is 1 9 7 pounds PE: PHYSICAL EXAMINATION: GENERAL: The patient is awake, alert, oriented, appropriate, very pleasant demeanor HEENT: Shows normocephalic, atraumatic. Extraocular movements are intact and symmetrical. Oral cavity: Mucous membranes moist and pink. Dentition is intact. NECK: Shows anterior throat supple without palpable lymphadenopathy noted. Swallow reflex symmetrical. CHEST: Shows normal on inspection. Breath sounds are clear bilaterally, no rales rhonchi wheezes auscultated. HEART: Shows S1, S2 clear. No murmurs auscultated. ABDOMEN: Soft, nontender, nondistended, obese. No palpable organomegaly is noted. No rebound or guarding demonstrated. BACK: Shows spine grossly in the midline. Normal-appearing cervical lordotic cu rvature. There is slightly increased thoracic kyphosis, some minor flattening of the lumbar lordotic curvature. Lumbar paraspinous muscles show symmetrical on inspection, on palpation shows some moderate tenderness diffusely throughout the upper, middle and lower distribution of the paraspinous muscles bilaterally and also into the lower thoracic paraspinous musculature, firm and tender, but without specific trigger points, without radiation of pain. The patient has good rotational motion of the lumbar spine, both laterally as well as extension and flexion without significant difficulty. No tenderness over the spinous processes, sacrum or sacroiliac regions. EXTREMITIES: Lower extremities show deep tendon reflexes 1+ in the patellar and tendo calcaneus tendons. Motor exam is 4 on a scale of 5 with right dorsiflexion, extension, quadriceps and hamstring flexion and 4/5 on the left. Peripheral pulses are 1+ posterior tibial. No peripheral edema is noted bilaterally. Lower extremities are warm and dry to touch, equal in color and appearance. SKIN: Shows warm and dry, good turgor. No edema. No sores, rashes or bruising throughout. IMPRESSION: Impression: 69-year-old male with lumbar to colopathy and lumbar degenerative disc disease status post spinal cord stimulator temporary placement with very good results. Plan: Spinal cord stimulator permanent system placement November 15, 2019 Preop orders as written LEYDA OATES MD Nov 14, 2019 14:28
== END ==
LOC: LAB 13:03
PROVIDERS: ATTEND Anesthesiology
DX: Z01.812 Encounter for preprocedural laboratory examination (principal); M54.16 Radiculopathy, lumbar region; Z20.828 Contact with and (suspected) exposure to other viral communicable diseases
CPT/HCPCS: U0003-CS

== ENCOUNTER 2019-11-15 09:39 | Day surgery (SDC) | payer MEDICARE ==
[~2019-11-15] VITALS: Ht 165.1 cm; Wt 198.0 kg
[~2019-11-15 09:39] MED LIST changes: +BACITRACIN 50,000 UNIT in IV NORMAL SALINE 500ML BAG 500 ML IRR ONE; +CLINDAMYCIN 600MG PREMIX 50 ML IV PRN; -HYDR-2765 PO; +HYDROmorphone 2 MG/ML VIAL IV PRN; +IV RINGERS,LACTATED 1000ML 1,000 ML IV SCH; +LIDOCAINE 1% PF 2 ML VIAL. ID PRN; +LIDOCAINE 1%/EPI 1:100,000 20 ML VIAL. INJ ONE; +MORPHINE SULFATE 2 MG/ML VIAL. IV PRN; +ONDANSETRON PF 4 MG/2 ML VIAL. IV PRN; +PROCHLORPERAZINE 10 MG/2 ML VIAL. IV PRN; +fentaNYL PF VIAL 100 MCG/2 ML VIAL IV PRN
[2019-11-15] MEDS ORDERED: LIDOCAINE 2% PF 5 ML VIAL. ONE ×2 (10:02→10:15)
[2019-11-15] MEDS ORDERED: PROPOFOL 10 MG/ML (20ML) VIAL. IV ONE ×2 (10:02→10:15)
[2019-11-15] MEDS ORDERED: MIDAZOLAM HCL/PF 2 MG/2 ML VIAL. ONE (10:14)
[2019-11-15] MEDS ORDERED: fentaNYL PF VIAL 100 MCG/2 ML VIAL ONE (10:15)
[2019-11-15] MEDS ORDERED: IOHEXOL 300 MG/ML 50 ML VIAL. ONE (10:18)
[2019-11-15] MEDS ORDERED: INSULIN LISPRO 100 UNIT/ML 3ML VIAL for OP,RR ONLY. SQ PRN (10:30)
[2019-11-15] MEDS ORDERED: SUCCINYLCHOLINE 200 MG/10 ML VIAL. ONE (10:59)
[2019-11-15] MEDS ORDERED: ONDANSETRON PF 4 MG/2 ML VIAL. ONE (11:27)
[2019-11-15] MEDS ORDERED: DEXAMETHASONE SOD PHOS 4 MG/ML VIAL ONE (11:27)
[2019-11-15] MEDS ORDERED: ePHEDrine PF IN SALINE 50 MG/10 ML SYRINGE. IV ONE (11:31)
[2019-11-15] MEDS ORDERED: GLYCOPYRROLATE 1 MG/5 ML VIAL. ONE (11:38)
[2019-11-15] MEDS ORDERED: PHENYLEPHRINE in 0.9% NACL PF 1 MG/10 ML SYRINGE. IV ONE (11:41)
--- NOTE | 2019-11-15 13:38 | DISCH ---
DISCHARGE INSTRUCTIONS Condition on Discharge Condition on Discharge: Stable Activity After Discharge Activity Instructions for Disc: Activity as tolerated, Walk in house Bathing Instructions: Shower-keep dressing dry, No Tub Bath until see Lifting Instructions after Dis: No heavy lifting, No pulling or pushing, Do not lift >10 pounds Exercise Instruction after Dis: Exercise per therapy Driving Instructions after Dis: Do not drive today Weight Bearing Status after Di: No restrictions, As tolerated Diet after Discharge Diet after Discharge: Diabetic No Calorie Level Diet Texture: Regular Liquid Texture: Thin Liquid Wound Incision Care Wound/Incision Care: Ice to area for comfort Checks after Discharge Checks after discharge: Check blood press - daily Contacting the DRDilshad after DC Call your doctor for: Concerns you may have Treatment/Equipment after DC Adaptive Equipment Issued: None LEYDA OATES MD Nov 15, 2019 13:38
--- NOTE | 2019-11-15 13:41 | PDOC4 ---
OPERATIVE NOTE Date: Date: Nov 15, 2019 Pre-Op Diagnosis: lumbar spinal stenosis;DDD;lumbar radiculopathy Post-Op Diagnosis: same Procedure Performed: Spinal cord stimulator permanent placement with generator Surgeon: Jose Anesthesia Type: GET Blood Loss: 50ml Specimans Obtained: none Findings: see op note dictation Complications: none Operative Note: see dictation LEYDA OATES MD Nov 15, 2019 13:41
--- NOTE | 2019-11-15 14:06 | PDOC4 ---
PROCEDURE Procedure 69-year-old male consented for spinal cord stimulator permanent placement with generator ,risks were discussed including but not limited to: Bleeding, infection, possibility of epidural hematoma and subsequent neurological compromise, dural puncture, headaches, spinal cord and/or nerve damage, exposure to fluoroscopy risks of general anesthetic and poor results regarding pain control. Patient understands wished to proceed. Patient was transferred to operating Matias. 5 and general anesthesia was induced with endotracheal tube. Patient was then rolled to a prone position with pressure points padded and breath sounds clear bilaterally. Patient was prepped and draped in the usual sterile fashion allowing 3 minutes for prep to dry before draping. Using C-arm fluoroscopic guidance patient's lumbar thoracic spines were identified and ex ternally marked at the T8 level. Using 1% lidocaine 1-200,000 epinephrine area overlying the L3-4 interspace was identified and locally anesthetized in the skin and subcutaneous tissues. Using a 14-gauge Hustead needle with stylette epidural space was entered using preservative-free normal saline [id number] technique without difficulty and with a negative aspiration. At this time spinal cord stimulator lead #1 was then reduced through the needle and under direct fluoroscopic vision both using both AP and lateral views was advanced without resistance to lie at the superior endplate of the T8 vertebral body with the superior electrode. Confirmation was made in the posterior epidural space with lateral view of fluoroscopy at this point as well. This technique was carried out with a second needle identical to the first with the same technique at the L3-4 interspace just superior to the original insertion site. The superior endplate of the T9 vertebral body was then aligned with the superiormost electrode of the #2 electrode. Again confirmed with fluoroscopy to be in the posterior epidural space. At this time using a 10 blade scalpel the insertion sites of the needles were then connected with incision and extended into the subcutaneous tissues to identify and reveal most of the introducing 14- gauge Hustead needles. At this time using a 0 silk suture pursestring was made around the needles each and with suture through the right to the lateral aspect of the spinous process periosteum. The needles were then removed as were stylette's from the leads with intermittent fluoroscopic visualization to ensure no movement of the leads and this was insured with both leads. This time the pursestring sutures previously placed were then tightened and sutured and additional 0 silk was used to anchor to the right spinous process periosteum and wrapping the wires each in chest tube type fashion were sutured x2 each. Once the leads were deemed secure the area just lateral approximately 10 cm to the original incision with identified for pocket placement for the spinal cord stimulator generator. Using a 15-gauge scalpel incision was made in a vertical direction to parallel the original incision proximately 10 cm to the right lateral continued dissection was carried out through the subcutaneous tissue this point using sharp and dull dissection as well as blunt dissection a pocket was formed approximately 5 cm x 8cm for placement of the spinal cord stimulator generator. Sizing template was used with good fit that in the pocket itself. Local hemorrhage was controlled using electrocautery as well as irrigation and pressure. Irrigation was then carried out in each of the wounds x3 with bacitracin irrigation reinspected without any local hemorrhage noted. After tunneling the leads from the individual incision into the pocket is now created, the spinal cord stimulator generator was connected to the leads 2. Material was checked with spinal cord stimulator eligibility services representative from [employer], and all leads showed good contact and impedance. Leads were then locked using screwdriver locking mechanism on the battery itself. This time the stimulator and the wires were coiled beneath the stimulator and placed into the pocket. Wound was then reinspected no local hemorrhage was noted in each of the incisions. Each incision was then closed using a interrupted 2-0 Vicryl for subcutaneous tissues and then a running 3-0 Vicryl for subcutaneous skin closure. Mastisol Steri-Strips Telfa and Tegaderm were then placed over the wound. Patient tolerated the procedure well had no immediate complications was transferred to the recovery room in good stable and awake condition. LEYDA OATES MD Nov 15, 2019 14:06
[2019-11-15] MEDS ORDERED: INSULIN LISPRO 100 UNIT/ML 3ML VIAL for OP,RR ONLY. SQ ONE (14:10)
[2019-11-15] MEDS ORDERED: HYDROcodone/APAP 7.5/325MG 1 TAB TABLET PO ONE (14:15)
[2019-11-15] MEDS ORDERED: HYDR-2765 PO (14:22)
[2019-11-15 14:35] VITALS: BP 140/60
== END 2019-11-15 15:10 | disposition home or self-care (01) ==
LOC: SURG 09:39
PROVIDERS: ATTEND Anesthesiology
DX: M51.16 Intervertebral disc disorders with radiculopathy, lumbar region (principal); M48.061 Spinal stenosis, lumbar region without neurogenic claudication; E78.5 Hyperlipidemia, unspecified; Z88.8 Allergy status to other drugs, medicaments and biological substances; Z87.891 Personal history of nicotine dependence; Z79.82 Long term (current) use of aspirin; Z79.899 Other long term (current) drug therapy
CPT/HCPCS: 63664; 82962; A7015; C1713; C1787; C1820; C1822; C1897; J0330; J1100; J1815; J2250; J2370; J2405; J2704; J3010; J3490; J7040; J7120; Q9967; 76000

== ENCOUNTER → 2019-11-22 | Outpatient (CLI) | payer MEDICARE ==
[2019-07-10 11:16] VITALS: BP_SYST 140
[2019-11-15 14:35] VITALS: BP_DIAS 60
[~2019-11-22] MED LIST changes: -BACITRACIN 50,000 UNIT in IV NORMAL SALINE 500ML BAG 500 ML IRR ONE; -CLINDAMYCIN 600MG PREMIX 50 ML IV PRN; +HYDR-2765 PO; -HYDROmorphone 2 MG/ML VIAL IV PRN; -IV RINGERS,LACTATED 1000ML 1,000 ML IV SCH; -LIDOCAINE 1% PF 2 ML VIAL. ID PRN; -LIDOCAINE 1%/EPI 1:100,000 20 ML VIAL. INJ ONE; -MORPHINE SULFATE 2 MG/ML VIAL. IV PRN; -ONDANSETRON PF 4 MG/2 ML VIAL. IV PRN; -PROCHLORPERAZINE 10 MG/2 ML VIAL. IV PRN; -fentaNYL PF VIAL 100 MCG/2 ML VIAL IV PRN
--- NOTE | 2019-11-22 10:39 | PDOC ---
Progress Note - Pain Clinic Date of Service: DOS: DATE: 11/22/19 TIME: 10:34 Diagnosis: Dx: Lumbar to colopathy with lumbar degenerative disc disease Cervical radiculopathy with cervical degenerative disease and cervical spondylosis History or Present Illness: HPI: 69-year-old male returns follow-up status post spinal cord stimulator system implant 1 week ago. Patient reports he doing very well his pain is reduced by about 65 to 70% over all with some soreness in the low back secondary to surgical placement only. Patient reports his lower extremities are feeling much better he has been increasing his activity slowly as well he been 1 week since the surgery but he still feels like he is sleeping better at night he is increase his activity gradually with about 50% overall improvement from the surgical pain as well. Patient rates his pain is a 6 on scale 10 is worse over the past week for an average for its least is a 4 today. Patient reports no new motor or sensory deficits no new bowel or bladder incontinence or other co mplaints patient reports he does not sleep well but not secondary to his pain he had a sleep study in about 2 months otherwise the pain is not awakening from sleep. Patient is increase his distance walking slowly is also be very careful with bending and stooping and flexion extension of his lumbar spine and will continue to be cautious with this and we have made a weight restriction limit of about 20 pounds for the next 4 weeks as well. Patient cries the pain is aching and tight and sore in the low back but the legs are doing much better. Physical Exam: VS: Blood pressure is 155/73 pulse 71 respirations 16 temperature is 98.0 F height is 5 foot 5 inches weight is 199 pounds PE: PHYSICAL EXAMINATION: GENERAL: The patient is awake, alert, oriented, appropriate, very pleasant in demeanor HEENT: Shows normocephalic, atraumatic. NECK: Shows anterior throat supple without palpable lymphadenopathy noted. Swallow reflex symmetrical. CHEST: Shows normal on inspection. Breath sounds are clear bilaterally. HEART: Shows S1, S2 clear. No murmurs auscultated. ABDOMEN: Soft, nontender, nondistended, obese. No palpable organomegaly is noted. No rebound or guarding demonstrated. BACK: Shows spine grossly in the midline. Normal-appearing cervical lordotic curvature. There is slightly increased thoracic kyphosis, some minor flattening of the lumbar lordotic curvature. Lumbar paraspinous muscles show symmetrical on inspection, on palpation shows some moderate tenderness bilaterally in the lumbar paraspinous musculature well-healed surgical scars are noted right of midline from surgical spinal cord stimulator leads and generator implant. Patient has some mild bruising around the area of the incision as well as into the right flank to a moderate extent bruised as well. Without specific trigger points, without radiation of pain. The patient has good rotational motion of the lumbar spine, both laterally as well as extension and flexion without significant difficulty. EXTREMITIES: Lower extremities show deep tendon reflexes 2+ in the patellar and tendo calcaneus tendons. Motor exam is 5 on a scale of 5 with right dorsiflexion, extension, quadriceps and hamstring flexion and 5/5 on the left. Peripheral pulses are 1+ posterior tibial. No peripheral edema is noted bilaterally. Lower extremities are warm and dry to touch, equal in color and appearance. SKIN: Shows warm and dry, good turgor. No edema. No sores, rashes or bruising throughout. Procedure: Procedure: Options were discussed with the patient. Patient's old chart was reviewed his current medication regimen updated current review of systems updated today as well. Patient's wound was redressed and bandaged is dry without erythema with some moderate tenderness over the spinal cord stimulator generator pocket itself only but without any radiation. Patient will return to clinic in approximately 3 weeks at this point also will be in contact with our spinal cord stimulator employment representative for fine-tuning as necessary over the next few weeks as well. Patient was cautioned as to activity level especially bending stooping extension lumbar spine repetitive reaching over his head with his arms and lifting greater than 20 pounds. Patient understands and agrees. Patient will follow-up as scheduled. Medication Injected: Med Injected: None Condition at Discharge: Condition at Discharge: Condition at discharge is stable. LEYDA OATES MD Nov 22, 2019 10:39
== END ==
LOC: PNCL 10:14
PROVIDERS: ATTEND Anesthesiology
DX: M51.16 Intervertebral disc disorders with radiculopathy, lumbar region (principal); M50.10 Cervical disc disorder with radiculopathy, unspecified cervical region; M47.892 Other spondylosis, cervical region; I10 Essential (primary) hypertension; E78.5 Hyperlipidemia, unspecified; K21.9 Gastro-esophageal reflux disease without esophagitis; Z79.82 Long term (current) use of aspirin; Z79.899 Other long term (current) drug therapy; Z87.891 Personal history of nicotine dependence
CPT/HCPCS: G0463

== ENCOUNTER → 2019-12-20 | Outpatient (CLI) | payer MEDICARE ==
--- NOTE | 2019-12-20 11:19 | PDOC ---
Progress Note - Pain Clinic Date of Service: DOS: DATE: 12/20/19 TIME: 11:15 Diagnosis: Dx: Lumbar radiculopathy with lumbar degenerative disc disease Cervical radiculopathy with cervical degenerative disc disease and spondylosis History or Present Illness: HPI: 69-year-old male returns follow-up status post spinal cord stimulator implant with generator and dual leads. Patient is now 7 weeks post operative and reports he doing very well with about 90% improvement with the stimulation and is very pleased with it thus far. Patient reports discharging well holding the charge having no difficulty with the stimulation and programming. Patient is here today for wound check follow-up and reports no significant soreness over the back of the area of the generator no difficulty with the wounds weeping erythema fevers or drainage. Patient reports his pain is a 1 on a scale of 10 at all times worst average and least is a 1 today. Patient scribes pain is dull in the posterior gluteus and low back only. No new motor or sensory deficits no new bowel or bladder incontinence or other complaints. Physical Exam: VS: Blood pressure is 145/79 pulse 71 respiration 16 temperature 90.1 F height is 5 foot 5 inches weight is 198 pounds PE: PHYSICAL EXAMINATION: GENERAL: The patient is awake, alert, oriented, appropriate, very pleasant demeanor HEENT: Shows normocephalic, atraumatic. Extraocular movements are intact and symmetrical. NECK: Shows anterior throat supple without palpable lymphadenopathy noted. Swallow reflex symmetrical. CHEST: Shows normal on inspection. Breath sounds are clear bilaterally ABDOMEN: Soft, nontender, nondistended, obese. No palpable organomegaly is noted. No rebound or guarding demonstrated. BACK: Shows spine grossly in the midline. Normal-appearing cervical lordotic curvature. There is slightly increased thoracic kyphosis, some minor flattening of the lumbar lordotic curvature. Lumbar paraspinous muscles show symmetrical on inspection, well-healed surgical scar noted in the midline and just to the right of midline with easily palpable spinal cord stimulator generator which is nontender no erythema around the incisions no significant tenderness no drainage. On palpation shows some moderate tenderness diffusely throughout the upper, middle and lower distribution of the paraspinous muscles without specific trigger points, without radiation of pain. The patient has good rotational motion of the lumbar spine, both laterally as well as extension and flexion w ithout significant difficulty. No tenderness over the spinous processes, sacrum or sacroiliac regions. EXTREMITIES: Lower extremities show deep tendon reflexes 2+ in the patellar and tendo calcaneus tendons. Motor exam is 5 on a scale of 5 with right charles siflexion, extension, quadriceps and hamstring flexion and 5/5 on the left. No peripheral edema is noted bilaterally. Lower extremities are warm and dry to touch, equal in color and appearance. SKIN: Shows warm and dry, good turgor. No edema. No sores, rashes or bruising throughout. Procedure: Procedure: Options were discussed with the patient. Patient chart was reviewed his his current medication regimen updated current review of systems updated today as well. Doing very well postoperative and pain reduction significant. Patient is very pleased with his progress thus far. We will have him follow-up at this time on as-needed basis. Medication Injected: Med Injected: None Condition at Discharge: Condition at Discharge: Condition at discharge is stable. LEYDA OATES MD Dec 20, 2019 11:19
== END | disposition home or self-care (01) ==
LOC: PNCL 10:15
PROVIDERS: ATTEND Anesthesiology
DX: M51.16 Intervertebral disc disorders with radiculopathy, lumbar region (principal); M50.10 Cervical disc disorder with radiculopathy, unspecified cervical region; M47.22 Other spondylosis with radiculopathy, cervical region; I25.10 Atherosclerotic heart disease of native coronary artery without angina pectoris; E78.00 Pure hypercholesterolemia, unspecified; E11.9 Type 2 diabetes mellitus without complications; I10 Essential (primary) hypertension; F32.9 Major depressive disorder, single episode, unspecified; G47.30 Sleep apnea, unspecified; M19.90 Unspecified osteoarthritis, unspecified site; K21.9 Gastro-esophageal reflux disease without esophagitis; Z85.828 Personal history of other malignant neoplasm of skin; Z87.891 Personal history of nicotine dependence; Z79.82 Long term (current) use of aspirin; Z79.899 Other long term (current) drug therapy; Z79.84 Long term (current) use of oral hypoglycemic drugs; Z98.890 Other specified postprocedural states; Z88.1 Allergy status to other antibiotic agents
CPT/HCPCS: G0463

== ENCOUNTER → 2020-02-18 | Outpatient (CLI) | payer MEDICARE ==
[~2020-02-18] MED LIST changes: +ZOLPIDEM 5 MG TABLET. PO ONE
--- NOTE | 2020-02-19 10:12 | SLEEP ---
DATE OF STUDY: 02/18/2020 REFERRING PHYSICIAN: Dr. Beverley Potts. The patient is a 70-year-old who weighs 201 pounds with a BMI of 33. The patient's [place] score was 12. The patient underwent split night study performed at [facility]. During the night study, the patient spent 419 minutes in bed and slept for 356 minutes with a sleep efficiency of 85%. Sleep latency was 31 minutes with a REM latency of 123 minutes. Sleep architecture showed normal stage 1 sleep, increased stage 2 sleep, absent slow wave and increased slow wave sleep. During the initial diagnostic portion of the study, the patient slept for 75 minutes. During that time, the patient had 2 obstructive apneas, 1 mixed apnea, no central apneas and 65 hypopneas. The patient's AHI was 54 per hour, supine AHI 54 per hour and REM sleep was not seen. Nocturnal oximetry study revealed an average oxygen saturation of 92% with the lowest of 75%. A 25% of time oxygen saturation remained between 80% and 89%. EKG monitoring revealed no sustained arrhythmias. Average heart rate was 75 beats per minute. No PLMs observed. The patient was started on CPAP at a pressure of 5 cm water and titrated up to 19 cm water. Due to persistent respiratory events, the patient was switched to BiPAP at 19/12 and a final pressure of 20/14. The patient slept for 56 minutes. The patient's AHI was reduced to 3 per hour and oxygen saturation remained above 90%. IMPRESSION: 1. Severe obstructive sleep apnea at an index of 54 per hour. 2. Nocturnal hypoxia secondary to obstructive sleep apnea, but resolved with BiPAP. 3. No clinically significant periodic limb movements. RECOMMENDATIONS: 1. BiPAP at a pressure of 20/14 completely eliminated the patient's sleep apnea and should be used on a nightly basis. The patient did have supine and REM sleep at the final pressure. 2. Follow up in 4-6 weeks to assess compliance with BiPAP and to document clinical improvement. 3. Weight loss is advised. 4. Avoid [employer] depressants. 5. Cautioned regarding driving until symptoms of sleep apnea resolve with the use of BiPAP. 6. The patient use medium size full face mask. CLARE CLARKE MD DR: JOSEPH/kishor JOB#: [id number] / [id number]
== END ==
LOC: SLPLAB 18:45
PROVIDERS: ATTEND Internal Medicine Critical Care Medicine
DX: G47.33 Obstructive sleep apnea (adult) (pediatric) (principal); R09.02 Hypoxemia
CPT/HCPCS: 95810

== ENCOUNTER → 2020-12-16 | Outpatient (CLI) | payer MEDICARE ==
[~2020-12-16] MED LIST changes: +DOCU-148 PO; -DOCU-153 PO; +TIZA-75 PO; -TIZA4TAB2 PO; -ZOLPIDEM 5 MG TABLET. PO ONE
--- NOTE | 2020-12-18 12:52 | CARD ---
MR#: [id number] Date of Study: 12/16/2020 Ordering Physician: CRISTO WEINER, Referring Physician: CRISTO WEINER, Tech: Yenny Price [facility] APPROVED REPORT EXAM: Two-dimensional and M-mode echocardiogram with Doppler and color Doppler. Other Information Quality : AverageHR: 72bpm Rhythm : NSR INDICATION Cardiac Disease: CAD Surgery/Intervention CABG: RISK FACTORS Hypertension Obesity Hyperlipidemia Diabetes 2D DIMENSIONS RVDd4.0 (2.9-3.5cm)Left Atrium(2D)5.2 (1.6-4.0cm) IVSd1.2 (0.7-1.1cm)Aortic Root(2D)3.5 (2.0-3.7cm) LVDd5.0 (3.9-5.9cm)LVOT Diameter2.3 (1.8-2.4cm) PWd1.4 (0.7-1.1cm)LVDs3.6 (2.5-4.0cm) FS (%) 27.4 %SV61.6 ml Aortic Valve AoV Peak Beni.260.8cm/sAoV VTI59.2cm AO Peak GR.27.2mmHgLVOT Peak Beni.86.7cm/s AO Mean GR.16mmHgAVA (VMAX)1.35cm2 Mitral Valve MV E Jxmtkpso911.4cm/sMV DECEL HLVM461tb MV A Xtcaescc78.6cm/sE/A Ratio1.2 Pulmonary Valve PV Peak Qxkuzxrn819.6cm/s Tricuspid Valve TR P. Cuovkhyi213kb/sTR Peak Gr.29mmHg LEFT VENTRICLE The left ventricle is normal size. There is mild concentric left ventricular hypertrophy. The left ve ntricular systolic function is normal and the ejection fraction is within normal range. The ejection fraction is 55 to 60%. There is normal LV segmental wall motion. The left ventricular diastolic fun ction and filling is normal for age. RIGHT VENTRICLE The right ventricle is normal size. There is normal right ventricular wall thickness. The right ventr icular systolic function is normal. ATRIA The left atrium size is normal. The right atrium size is normal. The interatrial septum is intact wit h no evidence for an atrial septal defect or patent foramen ovale as noted on 2-D or Doppler imaging. AORTIC VALVE The aortic valve is calcified and displays decreased opening. Doppler and Color Flow revealed no sign ificant aortic regurgitation. There is mild valvular aortic stenosis. MITRAL VALVE The mitral valve is normal in structure and function. There is no evidence of mitral valve prolapse. There is no mitral valve stenosis. Doppler and Color-flow revealed trace mitral regurgitation. TRICUSPID VALVE The tricuspid valve is normal in structure and function. Doppler and Color Flow revealed mild tricusp id regurgitation. Estimated PAP 33 mmHG. There is no tricuspid valve stenosis. PULMONIC VALVE The pulmonary valve is normal in structure and function. Doppler and Color Flow revealed no pulmonic valvular regurgitation. GREAT VESSELS The aortic root is normal in size. The ascending aorta is normal in size. The IVC is normal in size a nd collapses >50% with inspiration. PERICARDIAL EFFUSION There is no evidence of significant pericardial effusion. Critical Notification Critical Value: No <Conclusion> The left ventricle is normal size. The left ventricular systolic function is normal and the ejection fraction is within normal range. The ejection fraction is 55 to 60%. There is mild concentric left ventricular hypertrophy. Doppler and Color Flow revealed no significant aortic regurgitation. There is mild valvular aortic stenosis. Doppler and Color-flow revealed trace mitral regurgitation. Doppler and Color Flow revealed mild tricuspid regurgitation. Estimated PAP 33 mmHG. Signed by : Cristo Weiner MD Electronically Approved : 12/18/2020 12:52:37
== END ==
LOC: ECHO 10:21
PROVIDERS: ATTEND Internal Medicine Cardiovascular Disease
DX: I08.2 Rheumatic disorders of both aortic and tricuspid valves (principal); R06.02 Shortness of breath
CPT/HCPCS: 93306

== ENCOUNTER → 2021-03-01 | Outpatient (CLI) | payer MEDICARE ==
[2021-03-01 10:19] LABS: BASO % 0 % (0-3); EOS # 0.4 x10^3/uL (0.0-0.7); EOS % 5 % (0-3); HEMATOCRIT 45.1 % (39.0-53.0); HEMOGLOBIN 14.4 g/dL (13.0-17.5); LYMPH # 1.5 x10^3/uL (1.0-4.8); LYMPH % 19 % (24-48); MEAN CORPUSCULAR HEMOGLOBIN 28 pg (25-35); MEAN CORPUSCULAR HGB CONC 32 g/dL (31-37); MEAN CORPUSCULAR VOLUME 89 fL (79-100); MONO # 0.6 x10^3/uL (0.0-1.1); MONO % 7 % (0-9); NEUT # 5.6 x10^3/uL (1.8-7.7); NEUT % 69 % (31-73); PLATELET COUNT 285 x10^3/uL (140-400); RED BLOOD COUNT 5.07 x10^6/uL (4.30-5.70); RED CELL DISTRIBUTION WIDTH 15.3 % (11.5-14.5); WHITE BLOOD COUNT 8.2 x10^3/uL (4.0-11.0)
[2021-03-01 10:34] LABS: PROTHROMBIN TIME PATIENT 14.1 SEC (11.7-14.0); THROMBIN TIME 15.6 SEC (13.9-18.4)
== END ==
LOC: ONCLAB 09:45
PROVIDERS: ATTEND Internal Medicine Hematology & Oncology
DX: R23.3 Spontaneous ecchymoses (principal)
CPT/HCPCS: 85025; 85384; 85576; 85610; 85670; 85730

== ENCOUNTER → 2021-05-10 | Outpatient (CLI) | payer MEDICARE ==
--- NOTE | 2021-05-10 12:31 | PDOC ---
Progress Note - Pain Clinic Date of Service: DOS: DATE: 05/10/21 TIME: 12:27 Diagnosis: Dx: Lumbar radiculopathy with lumbar degenerative disease Cervical radiculopathy with cervical degenerative disease and cervical spondylosis History or Present Illness: HPI: 71-year-old male returns for follow-up status post spinal cord stimulator placement last seen December 20, 2019 patient did very well and reports still good coverage with his spinal cord stimulator however he is having some breakthrough pain in the low back and the right lower extremity the posterior gluteus posterior thigh posterior calf to the foot occasionally patient reports is been going on now for several months not constant but there with increased activity walking standing change positions patient reports his is becoming more more debilitated at home when 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 Patient reports she is also been diagnosed with vertigo recently has had some difficulty with his balance with walking. Patient reports no bowel or bladder incontinence no loss of motor function with significant fatigability of the right lower extremity. Patient ports sharp and stabbing can be constant at times. Patient reports no loss of motor function but significant fatigability the right leg as well as no bowel or bladder incontinence. Physical Exam: VS: Blood pressure is 144/71 pulse 84 respirations 18 temperature 98.2 F height is 5 foot 5 inches weight is 201 pounds. PE: PHYSICAL EXAMINATION: GENERAL: The patient is awake, alert, oriented, appropriate, very pleasant in demeanor HEENT: Shows normocephalic, atraumatic. Extraocular movements are intact and symmetrical. Oral cavity: Mucous membranes moist and pink. NECK: Shows anterior throat supple without palpable lymphadenopathy noted. Swallow reflex symmetrical. CHEST: Shows normal on inspection. Breath sounds are clear bilaterally, distant but no rales rhonchi or wheezes auscultated.. HEART: Shows S1, S2 clear. No murmurs auscultated. ABDOMEN: Soft, nontender, nondistended. No palpable organomegaly is noted. BACK: Shows spine grossly in the midline. Normal-appearing cervical lordotic curvature. There is slightly increased thoracic kyphosis, some flattening of the lumbar lordotic curvature with well-healed surgical scarring and easily palpable spinal cord stimulator generator. Lumbar paraspinous muscles show symmetrical on inspection, on palpation shows some moderate tenderness diffusely throughout the upper, middle and lower distribution of the paraspinous muscles without specific trigger points, without radiation of pain. The patient has good rotational motion of the lumbar spine, both laterally as well as extension and flexion without significant difficulty. No tenderness over the spinous processes, sacrum or sacroiliac regions. EXTREMITIES: Lower extremities show deep tendon reflexes 2+ in the patellar and tendo calcaneus tendons. Motor exam is 5 on a scale of 5 with right dorsiflexion, extension, quadriceps and hamstring flexion and 5/5 on the left. Peripheral pulses are 1+ posterior tibial. No peripheral edema is noted bilat erally. Lower extremities are warm and dry to touch, equal in color and appearance. SKIN: Shows warm and dry, good turgor. No edema. No sores, rashes or bruising throughout. Procedure: Procedure: Options discussed with patient. Patient's old chart was reviewed his current medication regimen updated current review of systems updated today as well. We will have patient contact [employer] sales representative for reprogramming of the spinal cord stimulator at this time. Patient to follow-up after reprogramming if necessary. Medication Injected: Med Injected: None Condition at Discharge: Condition at Discharge: Condition at discharge is stable. LEYDA OATES MD May 10, 2021 12:30
== END | disposition home or self-care (01) ==
LOC: PNCL 10:34
PROVIDERS: ATTEND Anesthesiology
DX: M51.16 Intervertebral disc disorders with radiculopathy, lumbar region (principal); M50.10 Cervical disc disorder with radiculopathy, unspecified cervical region; M47.22 Other spondylosis with radiculopathy, cervical region; I25.10 Atherosclerotic heart disease of native coronary artery without angina pectoris; I10 Essential (primary) hypertension; E78.00 Pure hypercholesterolemia, unspecified; E11.9 Type 2 diabetes mellitus without complications; F32.9 Major depressive disorder, single episode, unspecified; G47.30 Sleep apnea, unspecified; K21.9 Gastro-esophageal reflux disease without esophagitis; M19.90 Unspecified osteoarthritis, unspecified site; Z85.828 Personal history of other malignant neoplasm of skin; Z87.891 Personal history of nicotine dependence; Z79.82 Long term (current) use of aspirin; Z79.84 Long term (current) use of oral hypoglycemic drugs; Z79.899 Other long term (current) drug therapy; Z98.890 Other specified postprocedural states; Z88.1 Allergy status to other antibiotic agents
CPT/HCPCS: 99212; G0463

== ENCOUNTER → 2021-05-19 | Outpatient (CLI) | payer MEDICARE ==
[~2021-05-19] MED LIST changes: +IOHEXOL 180 MG/ML 10 ML VIAL. ONE; +methylPREDNISolone ACETATE 40 MG/ML VIAL. ONE; +methylPREDNISolone ACETATE 80 MG/ML VIAL. ONE
--- NOTE | 2021-05-19 14:35 | PDOC ---
Progress Note - Pain Clinic Date of Service: DOS: DATE: 05/19/21 TIME: 14:31 Diagnosis: Dx: Lumbar radiculopathy with lumbar degenerative disease Cervical radiculopathy cervical degenerative disease and cervical spondylosis History or Present Illness: HPI: 71-year-old male returns status post spinal cord stimulator placement with complaints of pain in the low back and the right lower extremity recent reprogramming with a spinal cord stimulator applications sales representative approximately 5 days ago without successful coverage of the new pain in the right lower extremity mostly in the posterior gluteus radiating into the right thigh and the calf patient reports has been going on for about 2weeks is getting worse with walking and standing patient reports he is keeping his stimulator charged and is doing well with the rest of the pain on the left side but his right leg is significantly painful without ability to reprogram the stimulator to cover this pain successfully again about 5 days ago patient reports the pain is a 10 on scale 10 at its worst average and an 8 at its least is an 8 today better with sitting or lying down but generally wakes him from sleep about every 2-3 hours however if she was laying on his right side. Patient reported stabbing aching sharp in the back can be constant in the leg as well with weightbearing. Patient is using a cane and is holding it in his left hand with ambulation. Patient reports no bowel or bladder incontinence no loss of function but significant fatigability with right lower extremity. Physical Exam: VS: Blood pressure 149/87 pulse 88 respirations 16 temperature 90.5 F height is 5 feet 5 inches weight is 203 pounds. PE: PHYSICAL EXAMINATION: GENERAL: The patient is awake, alert, oriented, appropriate, very pleasant in demeanor HEENT: Shows normocephalic, atraumatic. Extraocular movements are intact and symmetrical. Patient wearing eyeglasses. NECK: Shows anterior throat supple without palpable lymphadenopathy noted. Swallow reflex symmetrical. CHEST: Shows normal on inspection. Breath sounds are clear bilaterally, distant but no rales or rhonchi auscultated. HEART: Shows S1, S2 clear. No murmurs auscultated. ABDOMEN: Soft, nontender, nondistended. No palpable organomegaly is noted. BACK: Shows spine grossly in the midline. Normal-appearing cervical lordotic curvature. There is moderately increased thoracic kyphosis, some flattening of the lumbar lordotic curvature with well-healed surgical scar noted and easily palpable spinal cord stimulator generator to the right of midline. Lumbar paraspinous muscles show symmetrical on inspection, on palpation shows some moderate tenderness diffusely throughout the upper, middle and lower distribution of the paraspinous muscles, but without specific trigger points, without radiation of pain. The patient has good rotational motion of the lumbar spine, both laterally as well as extension and flexion without significant difficulty. No tenderness over the spinous processes, sacrum or sacroiliac regions. EXTREMITIES: Lower extremities show deep tendon reflexes 1 in the patellar and tendo calcaneus tendons. Motor exam is 4 on a scale of 5 with right dorsiflexion, extension, quadriceps and hamstring flexion and 5/5 on the left. Peripheral pulses are 1+ posterior tibial. No peripheral edema is noted bilaterally. Lower extremities are warm and dry to touch, equal in color and appearance. Straight leg raise noted to be positive on the right about 35-40 degrees, left side is negative. Gaenslen's and Colin's maneuvers are negative bilaterally as well. SKIN: Shows warm and dry, good turgor. No edema. No sores, rashes or bruising throughout. Procedure: Procedure: Options discussed with patient. Patient's old chart was reviewed as his current medication regimen updated current review of systems updated today as well. We will proceed with a lumbar epidural steroid injection today with fluoroscopic guidance. Risks were discussed including but not limited to: Bleeding, infect ion, possibility of epidural hematoma and subsequent neurological compromise, dural puncture, headaches, spinal cord and/or nerve damage, side effects of steroid medication, and poor results regarding pain control. Patient understands and wished to proceed. Patient will return to clinic in approximately 4 weeks for follow-up, was counseled as return appointment, activity level, and side effects to be aware of. Medication Injected: Med Injected: Procedure is lumbar epidural steroid injection under local anesthetic using sterile prep and drape at the L5-S1 level using C-arm fluoroscopic guidance in b oth AP and lateral views medications injected is 120 mg methylprednisolone +10mL preservative-free normal saline and 2 mL contrast- condition at discharge is stable patient tolerated procedure well had no complications. Condition at Discharge: Condition at Discharge: Condition at discharge stable, paced tolerated procedure well and had no complications. LEYDA OATES MD May 19, 2021 14:35
--- NOTE | 2021-05-19 14:35 | PDOC4 ---
Procedure Note: ICD 10 Code: ICD 10 Code: M54.17 M51.87 Procedure Note: Patient was consented for lumbar epidural steroid injection fluoroscopic guidance. Risks were discussed including but not limited to: Bleeding, infection, possibility of epidural hematoma and subsequent neurological compromise, dural puncture, headaches, spinal cord and/or nerve damage, side effects of steroid medication, and poor results regarding pain control. Patient understands and wished to proceed. Procedure is lumbar epidural steroid injection under local anesthetic using sterile prep and drape at the L5-S1 level using C-arm fluoroscopic guidance in both AP and lateral views medications injected is 120 mg methylprednisolone +10mL preservative-free normal saline and 2 mL contrast- condition at discharge is stable patient tolerated procedure well had no complications. LEYDA OATES MD May 19, 2021 14:35
== END | disposition home or self-care (01) ==
LOC: PNCL 13:44
PROVIDERS: ATTEND Anesthesiology
DX: M51.16 Intervertebral disc disorders with radiculopathy, lumbar region (principal); M50.10 Cervical disc disorder with radiculopathy, unspecified cervical region; M47.26 Other spondylosis with radiculopathy, lumbar region; I25.10 Atherosclerotic heart disease of native coronary artery without angina pectoris; K21.9 Gastro-esophageal reflux disease without esophagitis; I10 Essential (primary) hypertension; E78.00 Pure hypercholesterolemia, unspecified; G47.30 Sleep apnea, unspecified; F32.9 Major depressive disorder, single episode, unspecified; M19.90 Unspecified osteoarthritis, unspecified site; Z85.828 Personal history of other malignant neoplasm of skin; Z79.899 Other long term (current) drug therapy; Z98.890 Other specified postprocedural states; Z79.82 Long term (current) use of aspirin; Z88.1 Allergy status to other antibiotic agents
CPT/HCPCS: 62323; J1030; J1040; Q9965

== ENCOUNTER → 2021-06-14 | Outpatient (CLI) | payer MEDICARE ==
[~2021-06-14] MED LIST changes: -IOHEXOL 180 MG/ML 10 ML VIAL. ONE; -methylPREDNISolone ACETATE 40 MG/ML VIAL. ONE; -methylPREDNISolone ACETATE 80 MG/ML VIAL. ONE
[2021-06-14 09:56] LABS: BASO % 1 % (0-3); EOS # 0.3 x10^3/uL (0.0-0.7); EOS % 4 % (0-3); HEMATOCRIT 42.1 % (39.0-53.0); HEMOGLOBIN 14.1 g/dL (13.0-17.5); LYMPH # 1.4 x10^3/uL (1.0-4.8); LYMPH % 19 % (24-48); MEAN CORPUSCULAR HEMOGLOBIN 30 pg (25-35); MEAN CORPUSCULAR HGB CONC 34 g/dL (31-37); MEAN CORPUSCULAR VOLUME 89 fL (79-100); MONO # 0.8 x10^3/uL (0.0-1.1); MONO % 10 % (0-9); NEUT # 5.2 x10^3/uL (1.8-7.7); NEUT % 67 % (31-73); PLATELET COUNT 258 x10^3/uL (140-400); RED BLOOD COUNT 4.76 x10^6/uL (4.30-5.70); RED CELL DISTRIBUTION WIDTH 15.9 % (11.5-14.5); WHITE BLOOD COUNT 7.8 x10^3/uL (4.0-11.0)
== END ==
LOC: ONCLAB 09:13
PROVIDERS: ATTEND Internal Medicine Hematology & Oncology
DX: R23.3 Spontaneous ecchymoses (principal)
CPT/HCPCS: 36415; 85025